=== PATIENT | female | born 1950 | race Caucasian/White ===

== ENCOUNTER → 2017-09-15 | Outpatient (CLI) | payer BC ==
[~2017-09-15] MED LIST: KETO0.5S33 OPL; PRED1SUS3 OPL
--- NOTE | 2017-09-15 19:34 | DIAGNOSTIC IMAGING REPORT ---
TWO VIEW CHEST CLINICAL HISTORY: Fever. FINDINGS: PA and lateral chest radiographs are obtained. No prior studies are available for comparison at the time of dictation. The PA view is degraded by patient rotation. The cardiomediastinal silhouette is unremarkable. Nonspecific interstitial thickening is likely chronic. No airspace consolidation or pleural effusion is seen. There is no pneumothorax. The skeletal structures are osteopenic. Degenerative change is noted throughout the thoracic spine. The bony thorax appears intact. IMPRESSION: No active disease in the chest. Electronically signed by: Justin Boss M.D. 09/15/2017 7:32 PM Dictated Date/Time: 09/15/2017 7:31 PM
--- NOTE | 2017-09-22 14:53 | CODING QUERY NO DIAGNOSIS ---
Valid Physician Order Needed A valid physician order must be submitted in order to properly bill for the service(s) provided, including date of service(s), valid diagnosis, and physician signature. If these tests are done on a recurring basis the original physician order must be submitted in order to code and bill for the service(s) provided. Please fax us the original, signed physician order so that we may expedite billing to [phone] DOS 09/15/17 (Attacahed order is missing physician signature) * Chest xray Thank you Emilie Vigli [employer] Information [employer]
== END | disposition home or self-care (01) ==
LOC: C.RAD 19:06
PROVIDERS: ATTEND Family Medicine
DX: R50.9 Fever, unspecified (principal)

== ENCOUNTER → 2017-09-15 | Outpatient (CLI) | payer BC ==
--- NOTE | 2017-09-15 14:27 | DIAGNOSTIC IMAGING REPORT ---
ABDOMEN COMPLETE (US) HISTORY: Pain ABD PAIN. COMPARISON: None. FINDINGS: Pancreas: The pancreas demonstrates a normal echotexture. Liver: Unremarkable. Gallbladder: No gallbladder wall thickening. No gallstones. CBD: 5 mm Kidneys: No hydronephrosis. Spleen: Slight prominence at 11 cm maximum dimension Aorta: Normal in caliber. IVC: Patent. IMPRESSION: No acute process within the abdomen. Slight splenomegaly. The above report was generated using voice recognition software. It may contain grammatical, syntax or spelling errors. Electronically signed by: Kun Patterson M.D. 09/15/2017 2:26 PM Dictated Date/Time: 09/15/2017 2:25 PM
[2017-09-15 14:42] LABS: BASO % 0.1 %; BASO ABS # 0.03 K/uL (0-0.2); HEMATOCRIT 42.5 % (37-47); HEMOGLOBIN 14.5 g/dL (12.0-16.0); IG# 0.07 K/uL (0.00-0.02); LYMPH % 8.3 %; LYMPH ABS # 1.78 K/uL (1.2-3.4); MEAN CELL VOLUME 95.7 fL (80-100); MEAN CORPUSCULAR HEMOGLOBIN 32.7 pg (25-34); MEAN CORPUSCULAR HGB CONC 34.1 g/dl (32-36); MEAN PLATELET VOLUME 10.9 fL (7.4-10.4); MONO % 7.4 %; MONO ABS # 1.59 K/uL (0.11-0.59); NEUT % 83.9 %; NEUT ABS # 17.98 K/uL (1.4-6.5); PLATELET COUNT 204 K/uL (130-400); RED CELL DISTRIBUTION WIDTH CV 13.1 % (11.5-14.5); RED CELL DISTRIBUTION WIDTH SD 46.1 fL (36.4-46.3); WHITE BLOOD COUNT 21.45 K/uL (4.8-10.8)
[2017-09-15 16:00] LABS: ALBUMIN 4.1 gm/dl (3.4-5.0); ALKALINE PHOSPHATASE 98 U/L (45-117); ALT/SGPT 29 U/L (12-78); AST/SGOT 21 U/L (15-37); BLOOD UREA NITROGEN 17 mg/dl (7-18); CARBON DIOXIDE 24 mmol/L (21-32); CREATININE 1.35 mg/dl (0.60-1.20); GLUCOSE 127 mg/dl (70-99); LIPASE 86 U/L (73-393); POTASSIUM 3.5 mmol/L (3.5-5.1); SODIUM 134 mmol/L (136-145); TOTAL PROTEIN 8.8 gm/dl (6.4-8.2)
--- NOTE | 2017-09-22 14:48 | CODING QUERY NO DIAGNOSIS ---
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 Please assist us with providing a diagnosis/symptom for the test(s) below: A diagnosis/symptom was not documented on your Order. A valid diagnosis/symptom is required to bill all insurances. Please remember that we are unable to code a diagnosis of rule out, probable, possible, questionable, or suspected. Tests that require a diagnosis: DOS: 09/15/17 * [facility] DIAGNOSIS: Provider Signature: Date: Thank you Emilie Vigil [employer] Once completed, please kindly fax back to [phone] For questions please call [phone]
== END | disposition home or self-care (01) ==
LOC: C.ULTR 13:45
PROVIDERS: ATTEND Family Medicine
DX: R10.84 Generalized abdominal pain (principal); R10.11 Right upper quadrant pain; R50.9 Fever, unspecified

== ENCOUNTER → 2017-09-20 | Outpatient (CLI) | payer MEDICARE ==
[2017-09-20 12:14] LABS: BASO % 0.5 %; BASO ABS # 0.05 K/uL (0-0.2); EOS % 1.3 %; EOS ABS # 0.13 K/uL (0-0.5); HEMATOCRIT 40.1 % (37-47); HEMOGLOBIN 13.6 g/dL (12.0-16.0); IG# 0.11 K/uL (0.00-0.02); LYMPH % 28.3 %; LYMPH ABS # 2.84 K/uL (1.2-3.4); MEAN CELL VOLUME 94.1 fL (80-100); MEAN CORPUSCULAR HEMOGLOBIN 31.9 pg (25-34); MEAN CORPUSCULAR HGB CONC 33.9 g/dl (32-36); MEAN PLATELET VOLUME 10.6 fL (7.4-10.4); MONO % 9.9 %; MONO ABS # 0.99 K/uL (0.11-0.59); NEUT % 58.9 %; NEUT ABS # 5.92 K/uL (1.4-6.5); PLATELET COUNT 268 K/uL (130-400); RED CELL DISTRIBUTION WIDTH CV 12.6 % (11.5-14.5); RED CELL DISTRIBUTION WIDTH SD 43.2 fL (36.4-46.3); WHITE BLOOD COUNT 10.04 K/uL (4.8-10.8)
[2017-09-20 12:53] LABS: ALBUMIN 3.5 gm/dl (3.4-5.0); ALKALINE PHOSPHATASE 96 U/L (45-117); ALT/SGPT 39 U/L (12-78); AST/SGOT 25 U/L (15-37); BLOOD UREA NITROGEN 16 mg/dl (7-18); CALCIUM 9.3 mg/dl (8.5-10.1); CARBON DIOXIDE 26 mmol/L (21-32); CREATININE 0.98 mg/dl (0.60-1.20); GLUCOSE 86 mg/dl (70-99); LIPASE 229 U/L (73-393); POTASSIUM 3.9 mmol/L (3.5-5.1); SODIUM 135 mmol/L (136-145); TOTAL PROTEIN 8.2 gm/dl (6.4-8.2)
== END | disposition home or self-care (01) ==
LOC: C.LAB 09:58
PROVIDERS: ATTEND Family Medicine
DX: R10.11 Right upper quadrant pain (principal)

== ENCOUNTER 2020-02-03 18:37 | Inpatient (IN) ==
[2020-02-03] MEDS ORDERED: SODIUM CHLORIDE 0.9% 1000ML 1,000 ML IV ONE (18:54)
[2020-02-03] MEDS ORDERED: ONDANSETRON INJ 2 MG/ML 2 ML VIAL IV STA (18:54)
--- NOTE | 2020-02-03 19:00 | Emergency Department Note ---
History of Present Illness General Chief complaint: Abdominal Pain Stated complaint: UNABLE TO KEEP ANYTHING DOWN FOR WEEKS-ABD PAIN Time Seen by Provider: 02/03/20 18:44 Source: patient Mode of arrival: ambulatory Limitations: no limitations History of Present Illness Maximum Pain Intensity: 5 This patient comes in after complaining of nausea that has been going on for several weeks. She says she cannot eat because she gets nauseated immediately. No fever chills or cough. No respiratory symptoms. No chest pain or shortness of breath. Her abdomen hurts intermittently but at present she has none. No loss of taste or smell. No diarrhea or constipation. No fall or trauma. 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 She has not been Covid tested. No headache, neck pain, or stiffness or flulike symptoms. Home Medications Medication Instructions Recorded Confirmed Type pantoprazole 40 mg PO DAILY 02/03/20 02/03/20 History sucralfate 1 g PO ACHS 02/03/20 02/03/20 History Allergies Allergy/AdvReac Type Severity Reaction Status Date / Time No Known Allergies Allergy Verified 02/03/20 19:51 Past Med/Surg History Social History Smoking Status: Never smoker Preferred Language: Malawian Feels Safe at Home: Yes Immunizations: Past medical history denies cardiac disease, pulmonary disease, diabetes Family historypancreatic cancer runs in the family Review of Systems A total of 10 systems reviewed and were otherwise negative Physical Exam Vital Signs Vital Signs - 24 hr 02/03/20 18:38 02/03/20 19:38 02/03/20 19:43 Temperature 36.9 C Temperature Source Temporal Artery Scan Pulse Rate 101 H 83 Pulse Rate from SpO2 Sensor 83 Respiratory Rate 18 26 H Blood Pressure 130/74 Blood Pressure Mean 92 Pulse Oximetry 90 88 L 87 L Oxygen Delivery Method Room Air Room Air Room Air Oxygen Flow Rate Sepsis Recent Fever Within 48 Hours No Sepsis New/Unexplained Change in Mental Status N/A Sepsis Action Taken by Nursing No Action Required 02/03/20 19:50 02/03/20 20:00 02/03/20 20:10 Temperature Temperature Source Pulse Rate 81 78 88 Pulse Rate from SpO2 Sensor 82 79 87 Respiratory Rate 17 20 18 Blood Pressure 154/86 H Blood Pressure Mean 102 Pulse Oximetry 93 96 97 Oxygen Delivery Method Nasal Cannula Oxygen Flow Rate 3 Sepsis Recent Fever Within 48 Hours Sepsis New/Unexplained Change in Mental Status Sepsis Action Taken by Nursing 02/03/20 20:20 02/03/20 20:30 02/03/20 20:40 Temperature Temperature Source Pulse Rate 82 78 83 Pulse Rate from SpO2 Sensor 82 83 Respiratory Rate 14 21 21 Blood Pressure Blood Pressure Mean Pulse Oximetry 97 94 Oxygen Delivery Method Oxygen Flow Rate Sepsis Recent Fever Within 48 Hours Sepsis New/Unexplained Change in Mental Status Sepsis Action Taken by Nursing 02/03/20 20:50 02/03/20 21:00 02/03/20 21:10 Temperature Temperature Source Pulse Rate 79 81 74 Pulse Rate from SpO2 Sensor 79 81 75 Respiratory Rate 24 20 21 Blood Pressure 137/89 Blood Pressure Mean 108 Pulse Oximetry 91 93 94 Oxygen Delivery Method Oxygen Flow Rate Sepsis Recent Fever Within 48 Hours Sepsis New/Unexplained Change in Mental Status Sepsis Action Taken by Nursing 02/03/20 21:20 02/03/20 21:30 02/03/20 21:40 Temperature Temperature Source Pulse Rate 79 71 74 Pulse Rate from SpO2 Sensor 79 72 75 Respiratory Rate 20 23 21 Blood Pressure Blood Pressure Mean Pulse Oximetry 93 94 93 Oxygen Delivery Method Oxygen Flow Rate Sepsis Recent Fever Within 48 Hours Sepsis New/Unexplained Change in Mental Status Sepsis Action Taken by Nursing 02/03/20 21:50 02/03/20 22:00 02/03/20 22:10 Temperature Temperature Source Pulse Rate 76 91 H 73 Pulse Rate from SpO2 Sensor 76 89 73 Respiratory Rate 22 20 24 Blood Pressure 132/81 Blood Pressure Mean 90 Pulse Oximetry 90 94 94 Oxygen Delivery Method Nasal Cannula Oxygen Flow Rate 2 Sepsis Recent Fever Within 48 Hours Sepsis New/Unexplained Change in Mental Status Sepsis Action Taken by Nursing 02/03/20 22:20 02/03/20 22:30 Temperature Temperature Source Pulse Rate 71 76 Pulse Rate from SpO2 Sensor 72 76 Respiratory Rate 24 22 Blood Pressure Blood Pressure Mean Pulse Oximetry 92 91 Oxygen Delivery Method Nasal Cannula Oxygen Flow Rate 3 Sepsis Recent Fever Within 48 Hours Sepsis New/Unexplained Change in Mental Status Sepsis Action Taken by Nursing General: Well developed well nourished in no acute distress, breathing comfortably on room air. Normal speech HEENT: Normal cephalic atraumatic. Pupils are equal round and reactive to light. Extraocular movements are intact. Oropharynx is pink with moist mucous membranes. No swelling of the mouth lips or tongue. Neck: Supple with a midline trachea. No meningeal signs or stiffness, no JVD or bruits. No Stridor. Chest: Clear to auscultation bilaterally. No wheezes or rhonchi. No increased work of breathing. Heart: Regular rate and rhythm without murmurs or gallops. Abdomen: Soft nontender, nondistended without rebound guarding or rigidity. Extremities: No cyanosis clubbing or edema. No calf tenderness or assymetry Spine/Back. Non tender to palpation. No CVA tenderness Skin: Good turgor without rashes. Neurologic exam: Cranial nerves two through 12 are intact. Motor and sensation are intact and symmetrical throughout. Course Administered Medications Discontinued Medications Dexamethasone (Dexamethasone Sod Inj 4 Mg/Ml Vial) 6 mg IV NOW STA Stop: 02/03/20 20:10 Last Admin: 02/03/20 20:29 Dose: 6 mg Documented by: [id number] Sodium Chloride (Nss 1000ml) 1,000 mls @ 999 mls/hr IV .Q1H1M ONE Stop: 02/03/20 19:54 Last Infusion: 02/03/20 20:52 Dose: 0 mls/hr Documented by: [id number] Admin: 02/03/20 19:37 Dose: 999 mls/hr Documented by: [id number] Ondansetron HCl (Ondansetron Inj 2 Mg/Ml 2 Ml Vial) 4 mg IV NOW STA Stop: 02/03/20 18:55 Last Admin: 02/03/20 19:37 Dose: 4 mg Documented by: [id number] Medical Decision Making Differential Diagnosis Dehydration, cardiac disease, electrolyte or metabolic abnormality, pancreatic disease, Covid, intra-abdominal process, electrolyte or metabolic abnormality Medical Records Attestation: I reviewed the patient's medical records. Home Medications Current Medication List: was personally reviewed by me Laboratory Data Attestation: I reviewed the patient's lab results. Result diagrams: 02/03/20 19:34 02/03/20 19:37 Lab Results 02/03/20 02/03/20 02/03/20 Range/Units 19:34 19:34 19:34 WBC 7.40 (4.8-10.8) K/uL RBC 4.07 L (4.2-5.4) M/uL Hgb 12.7 (12.0-16.0) g/dL Hct 38.0 (37-47) % MCV 93.4 (80-100) fL MCH 31.2 (25-34) pg MCHC 33.4 (32-36) g/dL RDW Std Deviation 47.6 H (36.4-46.3) fL RDW Coeff of Annetta 13.9 (11.5-14.5) % Plt Count 191 (130-400) K/uL MPV 10.5 H (7.4-10.4) fL Immature Gran % (Auto) 0.1 % Neut % (Auto) 72.2 % Lymph % (Auto) 17.7 % Davis % (Auto) 9.9 % Eos % (Auto) 0.0 % Baso % (Auto) 0.1 % Neut # (Auto) 5.34 (1.4-6.5) K/uL Lymph # (Auto) 1.31 (1.2-3.4) K/uL [place] # (Auto) 0.73 H (0.11-0.59) K/uL Eos # (Auto) 0.00 (0-0.5) K/uL Baso # (Auto) 0.01 (0-0.2) K/uL Immature Gran # (Auto) 0.01 (0.00-0.02) K/uL Sodium (136-145) mmol/L Potassium (3.5-5.1) mmol/L Chloride (98-107) mmol/L Carbon Dioxide (21-32) mmol/L Anion Gap (3-11) BUN (7-18) mg/dl Creatinine (0.6-1.2) mg/dl Est Cr Clr Drug Dosing ml/min Est GFR ( Amer) Est GFR (Non-Af Amer) BUN/Creatinine Ratio (10-20) Glucose (70-99) mg/dl Calcium (8.5-10.1) mg/dl Total Bilirubin (0.2-1) mg/dl AST (15-37) U/L ALT (12-78) U/L Alkaline Phosphatase (45-117) U/L Troponin I (0-0.045) ng/ml Total Protein (6.4-8.2) gm/dl Albumin (3.4-5.0) gm/dl Globulin (2.5-4.0) gm/dl Albumin/Globulin Ratio (0.9-2) Lipase (73-393) U/L Urine Color Urine Appearance (Clear) Urine pH (4.5-7.5) Ur Specific [place] (1.000-1.030) Urine Protein (Negative) Urine Glucose (UA) (Negative) Urine Ketones (Negative) Urine Blood (Negative) Urine Nitrite (Negative) Urine Bilirubin (Negative) Urine Urobilinogen (Negative) Ur Leukocyte Esterase (Negative) Urine WBC (Auto) (0-5) /hpf Urine RBC (Auto) (0-4) /hpf U Hyaline Cast (Auto) (0-5) /lpf U Epithel Cells (Auto) (0-5) /lpf Urine Bacteria (Auto) (Negative) COVID-19 Eval Order Covid19 [facility] SARS-CoV-2, RNA, NAAT POSITIVE A* (NEGATIVE) 02/03/20 02/03/20 Range/Units 19:37 19:37 WBC (4.8-10.8) K/uL RBC (4.2-5.4) M/uL Hgb (12.0-16.0) g/dL Hct (37-47) % MCV (80-100) fL MCH (25-34) pg MCHC (32-36) g/dL RDW Std Deviation (36.4-46.3) fL RDW Coeff of Annetta (11.5-14.5) % Plt Count (130-400) K/uL MPV (7.4-10.4) fL Immature Gran % (Auto) % Neut % (Auto) % Lymph % (Auto) % [place] % (Auto) % Eos % (Auto) % Baso % (Auto) % Neut # (Auto) (1.4-6.5) K/uL Lymph # (Auto) (1.2-3.4) K/uL [place] # (Auto) (0.11-0.59) K/uL Eos # (Auto) (0-0.5) K/uL Baso # (Auto) (0-0.2) K/uL Immature Gran # (Auto) (0.00-0.02) K/uL Sodium 140 (136-145) mmol/L Potassium 3.2 L (3.5-5.1) mmol/L Chloride 104 (98-107) mmol/L Carbon Dioxide 26 (21-32) mmol/L Anion Gap 10.0 (3-11) BUN 19 H (7-18) mg/dl Creatinine 0.93 (0.6-1.2) mg/dl Est Cr Clr Drug Dosing 51.9 ml/min Est GFR ( Amer) 71.7 Est GFR (Non-Af Amer) 61.8 BUN/Creatinine Ratio 21.0 H (10-20) Glucose 111 H (70-99) mg/dl Calcium 8.6 (8.5-10.1) mg/dl Total Bilirubin 1.1 H (0.2-1) mg/dl AST 76 H (15-37) U/L ALT 71 (12-78) U/L Alkaline Phosphatase 84 (45-117) U/L Troponin I < 0.015 (0-0.045) ng/ml Total Protein 7.5 (6.4-8.2) gm/dl Albumin 3.3 L (3.4-5.0) gm/dl Globulin 4.2 H (2.5-4.0) gm/dl Albumin/Globulin Ratio 0.8 L (0.9-2) Lipase 251 (73-393) U/L Urine Color Dark Yellow Urine Appearance Clear (Clear) Urine pH 5.5 (4.5-7.5) Ur Specific [place] 1.025 (1.000-1.030) Urine Protein 2+ H (Negative) Urine Glucose (UA) Negative (Negative) Urine Ketones 2+ H (Negative) Urine Blood Negative (Negative) Urine Nitrite Negative (Negative) Urine Bilirubin Negative (Negative) Urine Urobilinogen Positive H (Negative) Ur Leukocyte Esterase Trace H (Negative) Urine WBC (Auto) 1-5 (0-5) /hpf Urine RBC (Auto) 0-4 (0-4) /hpf U Hyaline Cast (Auto) 5-10 H (0-5) /lpf U Epithel Cells (Auto) >30 H (0-5) /lpf Urine Bacteria (Auto) Negative (Negative) COVID-19 Eval Order SARS-CoV-2, RNA, NAAT (NEGATIVE) Imaging Data Attestation: I personally reviewed and interpreted this imaging study as follows: My Impression: Chest x-raythere are by lateral fluffy infiltrates consistent with Covid primarily in the bases. No pneumothorax ECG Data Attestation: I personally reviewed and interpreted this ECG as follows: Indication: + abdominal pain Rate (beats per minute): 76 Rhythm: + normal sinus ECG Intervals/blocks: + Normal QRS, + Normal QT and + Normal DE ECG Pender: + Normal ECG ST segments: + Normal ST segments ECG Findings: no PACs and no PVCs Comparison ECG Date: no prior available MDM Narrative This patient comes in complaining of nausea. She does have a Covid exposure. She is otherwise asymptomatic. It was noted in triage her oxygen was a little low at 90 although she has no respiratory symptoms. IV access was established and she was hydrated with 1 L IV normal saline bolus. EKG was obtained she was placed on respiratory isolation multiple blood testing was obtained as well as cardiac enzymes urinalysis and culture. I did Covid testing and chest x-ray as well. She was reassessed frequently. She was found to be hypoxemic in triage initially with a low 80s O2 sat that came up to 90. She has no shortness of breath however during the work-up here her O2 sat would go into 87% range. She was placed on nasal cannula and is in the 90s she has no respiratory symptoms. Her Covid test was positive. Chest x-ray shows infiltrates consistent with Covid. She has no significant electrolyte or metabolic abnormalities. Her EKG does not suggest acute coronary syndrome or arrhythmia. She does need to be admitted for her Covid. Given her hypoxemia she was given Decadron 6 mg IV. I did consult doctor [facility] to see the patient the ER for these measures. 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 Impression & Plan COVID-19, Nausea, Hypoxemia, Acute dehydration Discharge Plan Visit Data Chief Complaint: Abdominal Pain Stated Complaint: UNABLE TO KEEP ANYTHING DOWN FOR WEEKS-ABD PAIN ED Provider: Martinez Cervantes Discharge Problem: COVID-19, Nausea, Hypoxemia, Acute dehydration Forms Stand Alone Forms: My [facility] [employer] Prescriptions Prescriptions: No Action sucralfate 1 gram tablet 1 g PO ACHS RF: 0 pantoprazole 40 mg tablet,delayed release (DR/EC) 40 mg PO DAILY RF: 0
[2020-02-03 19:48] LABS: Basophils # (auto) 0.01 K/uL (0-0.2); Basophils % (auto) 0.1 %; Hemoglobin 12.7 g/dL (12.0-16.0); Immature Granulocytes # (auto) 0.01 K/uL (0.00-0.02); Immature Granulocytes % (auto) 0.1 %; Lymphocytes # (auto) 1.31 K/uL (1.2-3.4); Lymphocytes % (auto) 17.7 %; Mean Corpuscular Hemoglobin 31.2 pg (25-34); Mean Corpuscular Hgb Conc 33.4 g/dL (32-36); Mean Corpuscular Volume 93.4 fL (80-100); Mean Platelet Volume 10.5 fL (7.4-10.4); Monocytes # (auto) 0.73 K/uL (0.11-0.59); Monocytes % (auto) 9.9 %; Neutrophils # (auto) 5.34 K/uL (1.4-6.5); Neutrophils % (auto) 72.2 %; Platelet Count 191 K/uL (130-400); RDW Coefficient of Variation 13.9 % (11.5-14.5); RDW Standard Deviation 47.6 fL (36.4-46.3); Red Blood Count 4.07 M/uL (4.2-5.4)
[2020-02-03 19:58] LABS: Appearance Urine Clear (Clear); Bacteria Urine Automated Negative (Negative); Blood Urine Negative (Negative); Color Urine Dark Yellow; Epithelial Cell Urine Auto >30 /lpf (0-5); Glucose Urine UA Negative (Negative); Ketones Urine 2+ (Negative); Leukocyte Esterase Urine Trace (Negative); Nitrite Urine Negative (Negative); Protein Urine 2+ (Negative); RBC Urine Automated 0-4 /hpf (0-4); Specific Gravity Urine 1.025 (1.000-1.030); Urobilinogen Urine Positive (Negative); pH Urine 5.5 (4.5-7.5)
[2020-02-03 20:02] LABS: Bilirubin Urine Negative (Negative); Ictotest Urine Negative (Negative)
[2020-02-03] MEDS ORDERED: DEXAMETHASONE SOD INJ 4 MG/ML VIAL IV STA (20:09)
[2020-02-03 20:10] LABS: Alanine Aminotransferase 71 U/L (12-78); Albumin Level 3.3 gm/dl (3.4-5.0); Aspartate Aminotransferase 76 U/L (15-37); Blood Urea Nitrogen 19 mg/dl (7-18); Calcium 8.6 mg/dl (8.5-10.1); Carbon Dioxide 26 mmol/L (21-32); Chloride 104 mmol/L (98-107); Creatinine Clr Calc Pharmacy 51.9 ml/min; Est GFR (African American) 71.7; Est GFR (Non-African American) 61.8; Glucose 111 mg/dl (70-99); Lipase 251 U/L (73-393); Potassium 3.2 mmol/L (3.5-5.1); Sodium 140 mmol/L (136-145)
[2020-02-03 20:15] LABS: Albumin Globulin Ratio 0.8 (0.9-2); Alkaline Phosphatase 84 U/L (45-117); Bilirubin,Total 1.1 mg/dl (0.2-1); Globulin 4.2 gm/dl (2.5-4.0); Total Protein 7.5 gm/dl (6.4-8.2); Troponin I < 0.015 ng/ml (0-0.045)
--- NOTE | 2020-02-03 20:56 | History & Physical Report ---
Date of Service February 03, 2020 Assessment & Plan (1) Pneumonia due to COVID-19 virus: Bilateral pneumonia due to COVID-19 virus with hypoxia- Dexamethasone 6 mg IV daily Zinc sulfate 220 mg p.o. daily Ventolin HFA 2 puffs 4 times daily, and every 2 hours as needed Nasal cannula oxygen, titrate to keep pulse ox 94 to 95% Present on Admission?: Yes (2) Hypoxemia: See above Present on Admission?: Yes (3) Nausea: Patient has had nausea for several weeks, well before her exposure and contraction of COVID-19. She reports that she is definitely been worse since the viral infection. Order CT abdomen pelvis without contrast. Continue pantoprazole 40 mg p.o. daily and sucralfate 1 g p.o. before meals and at bedtime. Famotidine 20 mg IV every 12 hours. Promethazine 25 mg IV every 4-6 hours as needed Zofran 4 mg IV every 6 hours as needed Benadryl 25 mg IV every 6 hours as needed Consult gastroenterology, as patient will likely need to have an EGD at some point. Present on Admission?: Yes (4) Acute dehydration: NSS + KCl 20 mEq at 100 mils per hour Present on Admission?: Yes History of Present Illness Chief Complaint: The patient presents to the emergency department with complaint of worsening nausea and inability to hold anything down due to abdominal pain. 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 In the emergency department, had a COVID- 19 test which was positive. Other significant abnormalities include the following: Potassium 3.2, glucose 111, total bilirubin 1.1, AST 76, albumin 3.3 Chest x-ray showed bilateral lower lobe infiltrates. Pulse ox on room air was as low as 87%, and improved to 94% on 2 L nasal cannula oxygen. 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 Beliefs That Will Affect Care: None Current Living Situation: Spouse Other Information That Helps Us Care for You: No Feels Safe at Home: Yes Safety Concerns: Feels Safe At This Time Assistive Devices: Glasses and Oxygen - Continuous Review of Systems Review of Systems: The patient denies chest pain, palpitations, cough, lower extremity swelling, sore throat, fevers, chills, sweats, vomiting, diarrhea , constipation, blood in urine or stool, dysuria, urinary frequency or urgency, lightheadedness, dizziness, headache, memory loss, loss of consciousness, rash, abnormal bruising or bleeding, imbalance, focal weakness, numbness or tingling in arms or legs, generalized ar thralgias or myalgias, back or neck pain, or night sweats. The review of systems is otherwise negative other than for that already noted above, and at least 10 systems have been reviewed. Physical Exam Physical Exam: The patient is awake, alert and oriented 3, well developed and well nourished, normocephalic and atraumatic, lying in bed and in no acute distress. HEENT--PERRL, EOMI, mucous membranes and oropharynx dry. Neck--supple. No JVD. No bruits. Thyroid normal, trachea midline, no adenopathy. Heart--normal S1 and S2. No murmurs, rubs or gallops. Lungs--coarse breath sounds bilaterally. No respiratory distress, no accessory muscle use. Abdomen--normal bowel sounds and soft. Epigastric area tenderness. Nondistended. Extremities--no cyanosis or clubbing. No edema. Dermatologic--normal skin turgor, normal color, no abnormal lymph nodes, no rash. Neurologic--cranial nerves II through XII grossly intact. Rheumatologic--normal range of motion. Psychiatric--normal affect. Results & Data Results & Data ([facility]) Vital Signs (Past 12 Hours) Vital Signs Temp Pulse Resp BP Pulse Ox 02/03/20 20:50 79 24 91 02/03/20 20:40 83 21 94 02/03/20 20:30 78 21 02/03/20 20:20 82 14 97 02/03/20 20:10 88 18 97 02/03/20 20:00 78 20 154/86 H 96 02/03/20 19:50 81 17 93 02/03/20 19:43 83 26 H 87 L 02/03/20 19:38 88 L 02/03/20 18:38 98.4 F 101 H 18 130/74 90 Laboratory Results Laboratory Results WBC 7.40 K/uL (4.8-10.8) 02/03/20 19:34 RBC 4.07 M/uL (4.2-5.4) L 02/03/20 19:34 Hgb 12.7 g/dL (12.0-16.0) 02/03/20 19:34 Hct 38.0 % (37-47) 02/03/20 19:34 MCV 93.4 fL (80-100) 02/03/20 19:34 MCH 31.2 pg (25-34) 02/03/20 19:34 MCHC 33.4 g/dL (32-36) 02/03/20 19:34 RDW Std Deviation 47.6 fL (36.4-46.3) H 02/03/20 19:34 RDW Coeff of Annetta 13.9 % (11.5-14.5) 02/03/20 19:34 Plt Count 191 K/uL (130-400) 02/03/20 19:34 MPV 10.5 fL (7.4-10.4) H 02/03/20 19:34 Immature Gran % (Auto) 0.1 % 02/03/20 19:34 Neut % (Auto) 72.2 % 02/03/20 19:34 Lymph % (Auto) 17.7 % 02/03/20 19:34 [place] % (Auto) 9.9 % 02/03/20 19:34 Eos % (Auto) 0.0 % 02/03/20 19:34 Baso % (Auto) 0.1 % 02/03/20 19:34 Neut # (Auto) 5.34 K/uL (1.4-6.5) 02/03/20 19:34 Lymph # (Auto) 1.31 K/uL (1.2-3.4) 02/03/20 19:34 [place] # (Auto) 0.73 K/uL (0.11-0.59) H 02/03/20 19:34 Eos # (Auto) 0.00 K/uL (0-0.5) 02/03/20 19:34 Baso # (Auto) 0.01 K/uL (0-0.2) 02/03/20 19:34 Immature Gran # (Auto) 0.01 K/uL (0.00-0.02) 02/03/20 19:34 Sodium 140 mmol/L (136-145) 02/03/20 19:37 Potassium 3.2 mmol/L (3.5-5.1) L 02/03/20 19:37 Chloride 104 mmol/L (98-107) 02/03/20 19:37 Carbon Dioxide 26 mmol/L (21-32) 02/03/20 19:37 Anion Gap 10.0 (3-11) 02/03/20 19:37 BUN 19 mg/dl (7-18) H 02/03/20 19:37 Creatinine 0.93 mg/dl (0.6-1.2) 02/03/20 19:37 Est Cr Clr Drug Dosing 51.9 ml/min 02/03/20 19:37 Est GFR ( Amer) 71.7 02/03/20 19:37 Est GFR (Non-Af Amer) 61.8 02/03/20 19:37 BUN/Creatinine Ratio 21.0 (10-20) H 02/03/20 19:37 Glucose 111 mg/dl (70-99) H 02/03/20 19:37 Calcium 8.6 mg/dl (8.5-10.1) 02/03/20 19:37 Total Bilirubin 1.1 mg/dl (0.2-1) H 02/03/20 19:37 AST 76 U/L (15-37) H 02/03/20 19:37 ALT 71 U/L (12-78) 02/03/20 19:37 Alkaline Phosphatase 84 U/L (45-117) 02/03/20 19:37 Troponin I < 0.015 ng/ml (0-0.045) 02/03/20 19:37 Total Protein 7.5 gm/dl (6.4-8.2) 02/03/20 19:37 Albumin 3.3 gm/dl (3.4-5.0) L 02/03/20 19:37 Globulin 4.2 gm/dl (2.5-4.0) H 02/03/20 19:37 Albumin/Globulin Ratio 0.8 (0.9-2) L 02/03/20 19:37 Lipase 251 U/L (73-393) 02/03/20 19:37 Urine Color Dark Yellow 02/03/20 19:37 Urine Appearance Clear (Clear) 02/03/20 19:37 Urine pH 5.5 (4.5-7.5) 02/03/20 19:37 Ur Specific [place] 1.025 (1.000-1.030) 02/03/20 19:37 Urine Protein 2+ (Negative) H 02/03/20 19:37 Urine Glucose (UA) Negative (Negative) 02/03/20 19:37 Urine Ketones 2+ (Negative) H 02/03/20 19:37 Urine Blood Negative (Negative) 02/03/20 19:37 Urine Nitrite Negative (Negative) 02/03/20 19:37 Urine Bilirubin Negative (Negative) 02/03/20 19:37 Urine Urobilinogen Positive (Negative) H 02/03/20 19:37 Ur Leukocyte Esterase Trace (Negative) H 02/03/20 19:37 Urine WBC (Auto) 1-5 /hpf (0-5) 02/03/20 19:37 Urine RBC (Auto) 0-4 /hpf (0-4) 02/03/20 19:37 U Hyaline Cast (Auto) 5-10 /lpf (0-5) H 02/03/20 19:37 U Epithel Cells (Auto) >30 /lpf (0-5) H 02/03/20 19:37 Urine Bacteria (Auto) Negative (Negative) 02/03/20 19:37 COVID-19 Eval Order Covid19 IDNow [facility] 02/03/20 19:34 SARS-CoV-2, RNA, NAAT POSITIVE (NEGATIVE) A* 02/03/20 19:34 Code Status & VTE Plan Code Status Full code VTE Prophylaxis Plan VTE Prophylaxis will be ordered: Yes PG Care Time/CCT Total # of Minutes Spent Total Time Spent with Patient: Total time spent is greater than 50% in coordination of care (as documented) at patient's floor/unit and/or counseling patient: Coding Level of Care Code 60955 Initial Inpt Care Lvl 2 Diagnoses Pneumonia due to COVID-19 virus U07.1; J12.89 Hypoxemia R09.02 Nausea R11.0 Acute dehydration E86.0
[2020-02-04] MEDS ORDERED: ONDANSETRON INJ 2 MG/ML 2 ML VIAL IV PRN (00:50)
[2020-02-04] MEDS ORDERED: diphenhydrAMINE 50 MG/ML VIAL IV PRN (00:50)
[2020-02-04] MEDS ORDERED: INFLUENZA ADMINISTRATION CHARGE ONE (01:31)
[2020-02-04] MEDS ORDERED: INFLUENZA VACCINE HIGH DOSE PF 65+ 0.7 ML SYR IM ONE (01:31)
[2020-02-04] MEDS: SUCRALFATE 1 GM TAB PO SCH ×5 (01:36→20:37)
[2020-02-04] MEDS: PROMETHAZINE HCL 25 MG in SODIUM CHLORIDE 0.9% 50 ML IV PRN (01:37)
[2020-02-04] MEDS: NSS + 20MEQ KCL 20 MEQ/1,000 ML BAG IV SCH ×3 (01:37→20:37)
[2020-02-04] MEDS: ALBUTEROL HFA 8 GM INHALER INH SCH ×2 (07:09→11:18)
[2020-02-04] MEDS: PANTOprazole 40 MG TAB PO SCH (07:28)
[2020-02-04] MEDS: dexAMETHasone 6 MG in SYRINGE 0 ML IV SCH (07:29)
--- NOTE | 2020-02-04 08:04 | XRay Report ---
XR chest 1V portable CLINICAL HISTORY: Pain radiating to the abdomen. COMPARISON STUDY: 11/03/2019 FINDINGS: The cardiac and mediastinal contours remain stable. There are bibasilar parenchymal opaciti es suspicious for a multifocal pneumonia. Correlation with Covid 19 testing is recommended.[There is no free intraperitoneal air. There are no lytic or pleural effusions. IMPRESSION: Bibasilar airspace opacities suspicious for a multifocal pneumonia possibly viral. Correl ation with Covid 19 testing recommended. ACT 112: Negative or not required by law. Electronically signed by: Krishna Hernandez M.D. 02/04/2020 8:03 AM
--- NOTE | 2020-02-04 09:36 | CT Scan Report ---
ABDOMEN AND PELVIS CT WITHOUT CONTRAST CT DOSE: 567.75 mGycm HISTORY: intractable nausea and vomiting, COVID-19+ TECHNIQUE: Multiaxial CT images of the abdomen and pelvis were performed without contrast. A dose lo wering technique was utilized adhering to the principles of ALARA. COMPARISON STUDY: None. FINDINGS: Moderate bibasilar patchy airspace opacities consistent with a viral pneumonia. No pneumope ritoneum. No pneumatosis. No suspicious lytic or blastic osseous lesions. Hepatic steatosis. The unen hanced gallbladder, spleen, and pancreas unremarkable. No renal or ureteral stones. No hydronephrosis . Mild bilateral perinephric edema. This is likely chronic. Mild nodular thickening of the adrenal gl ands which is likely age-related. Moderate calcified plaque within the normal caliber abdominal aorta . No retroperitoneal or pelvic lymphadenopathy. No pelvic free fluid. The bladder, uterus, bilateral adnexa are within normal limits. Suboptimal evaluation for bowel pathology due to the lack of intrave nous and oral contrast. However, there is no definite bowel wall thickening or obstruction. Colonic d iverticulosis. No evidence for acute diverticulitis. Moderate well-formed stool within the transverse colon. Normal appendix. IMPRESSION: 1. No bowel wall thickening or obstruction. 2. Moderate bibasilar patchy airspace opacities consistent with a viral pneumonia. 3. Hepatic steatosis. 4. Colonic diverticulosis. No evidence for acute diverticulitis. ACT 112: Negative or not required by law. Electronically signed by: Flaquito York M.D. 02/04/2020 9:35 AM
[2020-02-04] MEDS: ZINC SULFATE 220 MG CAPSULE PO SCH (09:48)
[2020-02-04] MEDS: FAMOTIDINE 20 MG in SYRINGE 3 ML IV SCH (09:49)
[2020-02-04] MEDS: ENOXAPARIN INJ 40 MG/0.4 ML SYR SQ SCH (09:49)
--- NOTE | 2020-02-04 09:55 | Communication Note ---
Date of Service: February 04, 2020 Patient is a 69 yo female with COVID19 pneumonia. GI has been consulted for nausea. Assessment and plan has been generated by way of chart review. Reportedly patient has been struggling with nausea in the weeks prior to her diagnosis with COVID19. A CT scan does not indicate any alarming findings of the GI system. Labs are unremarkable for GI issues. Plan: -Scheduled antiemetics rather than prn dosing -Pantoprazole 40 mg BID -Famotidine 20 mg BID -Treat acute COVID19 infection -No current role for endoscopy due to COVID19 PNA and low yield for the complaint of nausea -Further work-up for nausea can be considered as an outpatient when COVID19 infection improved (if nausea persists) Thank you for allowing us to participate in the care of this patient. If you should have any further questions do not hesitate to contact us at [phone] or [phone]. Attending addendum: agree with MARC Esteban. continue PPI and anti-emetics, consider outpatient EGD after covid infection has improved. Alexandro Moeller MD Gastroenterology
[2020-02-04 10:27] LABS: Prothrombin Time 10.7 Seconds (9.0-12.0)
[2020-02-04 10:32] LABS: Albumin Level 3.7 gm/dl (3.4-5.0); BUN Creatinine Ratio 16.8 (10-20); Bilirubin Direct 0.4 mg/dl (0-0.2); Creatinine Clr Calc Pharmacy 43.6 ml/min; Est GFR (African American) 57.9; Est GFR (Non-African American) 49.9; Magnesium 2.4 mg/dl (1.8-2.4); Potassium 3.6 mmol/L (3.5-5.1)
[2020-02-04 10:35] LABS: Total Protein 8.7 gm/dl (6.4-8.2)
[2020-02-04 10:37] LABS: D Dimer 1440 ug/L FEU (0-500)
[2020-02-04 12:45] LABS: Hepatitis B Surf Ag Rflx Conf Neg (Neg)
[2020-02-04 13:13] LABS: Hepatitis C IgG 13Yrs+Old_Rflx Neg (Neg)
[2020-02-04] MEDS ORDERED: ALBUTEROL HFA 8 GM INHALER INH PRN (13:41)
--- NOTE | 2020-02-04 18:26 | Electrocardiogram Report ---
Test Reason : Blood Pressure : / mmHG Vent. Rate : 076 BPM Atrial Rate : 076 BPM P-R Int : 170 ms QRS Dur : 086 ms QT Int : 380 ms P-R-T Axes : 042 -18 044 degrees QTc Int : 427 ms Normal sinus rhythm Poor R wave progression, consider anterior WA vs. lead placement vs. LVH No previous ECGs available Confirmed by David Monge ([id number]) on 02/04/2020 6:26:40 PM Referred By: REFERRED SELF Confirmed By:Laz Monge
--- NOTE | 2020-02-05 01:13 | Hospitalist Progress Note ---
Date of Service February 04, 2020 Assessment & Plan (1) Pneumonia due to COVID-19 virus: Largely asymptomatic at this time despite hypoxia. We discussed self-proning, pulm toilet/incentive/flutter, and steroids. Dexamethasone 6 mg IV daily - day #2/10. We discussed remdesivir and plasma - both likely of little benefit given she is 10-14 days into illness course, especially remdesivir. Cont NC O2 - keep sats 90-94%. Repeat cxr in am. Zinc sulfate 220 mg p.o. daily x 10 days. Ventolin prn Repeat procal and dimer in am. (2) Acute respiratory failure with hypoxia: 2nd COVID-19 pneumonia. see above (3) Abnormal LFTs: likely 2nd to COVID-19 infection trend daily Gi consult appreciated (4) Nausea: 2nd to COVID-19 infection cont scheduled anti-emetics, H2 brian, PPI, carafate appreciate GI consult CT abd/pelvis noted (5) DVT prophylaxis: increase lovenox to 40mg BID updated by phone tonight bedside rounds were about 30 minutes phone call with 5 minutes Admission and Anticipated Discharge Date Admission Date: February 03, 2020 Subjective patient reports COVID exposure ~12/13 or sooner. was looking after a woman in her 90s who ultimately tested + for COVID, and that woman is hospitalized out of town and actively dying from it. has had 2+ weeks of nausea/feeling very poorly, then about 10 days ago all symptoms worsened. thought she had ulcer. had no respiratory symptoms at home -- no cough, no dyspnea. requiring O2 now. thus, she has had COVID likely for at least 10 days, perhaps as long as 14+ days. daughter is a nurse at [employer] by report. no prior h/o lung disease. Review of Systems Constitutional: + fatigue, + weakness and + anorexia; no fever, no chills and no body aches none at home per her recollection Respiratory: no wheezing Cardiovascular: no chest pain Gastrointestinal: no abdominal pain Physical Exam Constitutional: well developed and well nourished; no acute distress and no altered mental status ENMT: external ear and nose normal, oropharynx normal Respiratory: no respiratory distress Auscultation: + crackles (1/[address] up back -- fine, dry sounding ); no rhonchi and no wheezes Cardiovascular: Rate/Rhythm: regular rate and regular rhythm Heart Sounds: normal S1 and normal S2; no murmur Vessels: posterior tibial pulses present and dorsalis pedis pulses present; no JVD Extremities: no edema Gastrointestinal (Abdomen): normal bowel sounds, soft, nontender, no hepatosplenomegaly Skin: no rashes, warm and dry Psychiatric: A+Ox3, euthymic affect Results & Data Results & Data ([facility]) Vital Signs (Past 12 Hours) Vital Signs Temp Pulse Resp BP Pulse Ox 02/04/20 23:03 37.5 C 73 18 148/81 H 91 02/04/20 15:35 36.6 C 73 18 148/81 H 93 Laboratory Results Laboratory Results - last 24 hr 02/04/20 02/04/20 02/04/20 09:49 09:56 09:56 PT 10.7 INR 1.0 D-Dimer 1440 H* Sodium 141 Potassium 3.6 Chloride 107 Carbon Dioxide 24 Anion Gap 9.0 BUN 19 H Creatinine 1.11 Est Cr Clr Drug Dosing 43.6 Est GFR ( Amer) 57.9 Est GFR (Non-Af Amer) 49.9 BUN/Creatinine Ratio 16.8 Glucose 153 H Calcium 9.0 Magnesium 2.4 Total Bilirubin 1.0 Direct Bilirubin 0.4 H AST 92 H ALT 94 H Alkaline Phosphatase 99 Total Creatine Kinase 608 H Total Protein 8.7 H Albumin 3.7 Procalcitonin < 0.05 Hepatitis A IgM Ab Hep Bs Antigen Hep B Core IgM Ab Hepatitis C Antibody 02/04/20 02/04/20 11:20 11:20 PT INR D-Dimer Sodium Potassium Chloride Carbon Dioxide Anion Gap BUN Creatinine Est Cr Clr Drug Dosing Est GFR ( Amer) Est GFR (Non-Af Amer) BUN/Creatinine Ratio Glucose Calcium Magnesium Total Bilirubin Direct Bilirubin AST ALT Alkaline Phosphatase Total Creatine Kinase Total Protein Albumin Procalcitonin Hepatitis A IgM Ab Pending Hep Bs Antigen Neg Hep B Core IgM Ab Pending Hepatitis C Antibody Neg PG Care Time/CCT Total # of Minutes Spent Total Time Spent with Patient: Total time spent is greater than 50% in coordination of care (as documented) at patient's floor/unit and/or counseling patient: Coding Level of Care Code 74350 Subseq Hosp Care Lvl 3 Diagnoses Pneumonia due to COVID-19 virus U07.1; J12.89 Acute respiratory failure with hypoxia J96.01 Abnormal LFTs R94.5 Nausea R11.0 DVT prophylaxis Z29.9
[2020-02-05] MEDS: PROMETHAZINE HCL 25 MG in SODIUM CHLORIDE 0.9% 50 ML IV PRN (01:57)
[2020-02-05] MEDS: NSS + 20MEQ KCL 20 MEQ/1,000 ML BAG IV SCH (06:03)
[2020-02-05] MEDS: ACETAMINOPHEN 325 MG TAB PO PRN (06:15)
[2020-02-05] MEDS ORDERED: SODIUM CHLORIDE 0.9% 1000ML 500 ML IV ONE (07:47)
[2020-02-05] MEDS: SUCRALFATE 1 GM TAB PO SCH ×4 (08:23→20:16)
--- NOTE | 2020-02-05 08:47 | XRay Report ---
SINGLE VIEW CHEST CLINICAL HISTORY: Hypoxemic respiratory failure. FINDINGS: An AP, portable, upright chest radiograph is compared to study dated 02/03/2020. The cardio mediastinal silhouette is unremarkable noting atherosclerotic calcification of the thoracic aorta. Mu ltifocal airspace consolidation is again seen. This is increasingly confluent as compared to 02/03/20. No large pleural effusion or pneumothorax is identified. The skeletal structures are osteopenic. The bony thorax is grossly intact. IMPRESSION: Multifocal airspace consolidation is increasingly confluent as compared to 02/03/2020. ACT 112: Negative or not required by law. Electronically signed by: Justin Boss M.D. 02/05/2020 8:46 AM
[2020-02-05 08:52] LABS: Albumin Level 2.8 gm/dl (3.4-5.0); BUN Creatinine Ratio 20.9 (10-20); Bilirubin Direct 0.2 mg/dl (0-0.2); Bilirubin,Total 0.6 mg/dl (0.2-1); C Reactive Protein 3.06 mg/dl (0-0.29); Calcium 8.3 mg/dl (8.5-10.1); Creatinine Clr Calc Pharmacy 56.9 ml/min; Est GFR (African American) 79.9; Est GFR (Non-African American) 68.9; Potassium 4.1 mmol/L (3.5-5.1); Total Protein 6.3 gm/dl (6.4-8.2)
[2020-02-05 09:26] LABS: D Dimer 1370 ug/L FEU (0-500)
[2020-02-05] MEDS: PANTOprazole 40 MG TAB PO SCH (09:44)
[2020-02-05] MEDS: ENOXAPARIN INJ 40 MG/0.4 ML SYR SQ SCH ×2 (09:45→20:16)
[2020-02-05] MEDS: ZINC SULFATE 220 MG CAPSULE PO SCH (09:46)
[2020-02-05] MEDS: FAMOTIDINE 20 MG in SYRINGE 3 ML IV SCH (09:48)
[2020-02-05] MEDS: dexAMETHasone 6 MG in SYRINGE 0 ML IV SCH (09:48)
[2020-02-05 11:11] LABS: Hepatitis A Antibody IgM NON-REACTIVE (NON-REACTIVE); Hepatitis B Core Antibody IgM NON-REACTIVE (NON-REACTIVE)
[2020-02-05] MEDS ORDERED: DOXYCYCLINE HYCLATE 100 MG in DEXTROSE 5% 100 ML IV SCH (11:30)
[2020-02-05] MEDS ORDERED: REMDESIVIR 200 MG in SODIUM CHLORIDE 0.9% 210 ML IV ONE (11:30)
[2020-02-05] MEDS ORDERED: FUROSEMIDE 20 MG in SYRINGE 0 ML IV ONE (13:11)
--- NOTE | 2020-02-05 13:20 | Hospitalist Progress Note ---
Date of Service February 05, 2020 Assessment & Plan (1) Pneumonia due to COVID-19 virus: Still largely asymptomatic at this time despite worsening hypoxia and escalating O2 requirements. We again discussed self-proning, pulm toilet/incentive/flutter, and Rx. Dexamethasone 6 mg IV daily - day #3/10. We discussed remdesivir and plasma again - both likely of little benefit given she is 10-14 days into illness course, especially remdesivir. However, with worsening cxr this am, worsening O2 requirements, new-onset fever -- will give both. Start remdesivir x 5 days. Discussed risks/benefits of convalescent plasma - ultimately patient gave consent. T/S. FDA information handout on plasma given. Cont NC O2 - keep sats 90-94%. Zinc sulfate 220 mg p.o. daily x 10 days. Ventolin prn Procal is normal suggesting this is likely ALL COVID-related. Suspect cytokine storm and inflammatory cascade from COVID. Can't rule out an element of pulmonary edema - give lasix 20mg IV x 1 and reassess clinical response. Start IV rocephin/doxy to cover for slight possibility of superimposed bacterial pneumonia but again unlikely given the procal level. Low threshold to transfer patient to telemetry with worsening status. (2) Acute respiratory failure with hypoxia: 2nd COVID-19 pneumonia. see above discussion (3) Abnormal LFTs: likely 2nd to COVID-19 infection trend daily Gi consult appreciated (4) Nausea: 2nd to COVID-19 infection can't rule out gastritis/esophagitis/other upper GI pathology either way nausea improved; tolerated diet this am after recovery from COVID will need outpatient GI f/u and probable EGD recent CT abd/pelvis noted lipase noted cont scheduled anti-emetics, H2 brian, PPI, carafate appreciate GI consult (5) DVT prophylaxis: lovenox to 40mg BID updated by phone yesterday updated ruddy Dang's daughter - she is a nurse at [employer] extensive discussion, 20-25 min in duration questions answered care plan reviewed phone # - [phone] total time spent today 65 minutes including extensive bedside visit, extensive phone conversation with daughter, review of cxr and ordering plasma/other therapies, etc. Admission and Anticipated Discharge Date Admission Date: February 03, 2020 Subjective patient continues to deny any dyspnea or cough or LONODN despite escalating O2 requirements. occasional nausea but MUCH improved and able to eat breakfast this am. had fever overnight to >39; had significant cold chills and sweats and felt very poorly overnight from such. we discussed heavily plasma and remdesivir - discussed that neither may provide significant benefit since she is 10-14 days into illness. with that said, with worsening status, we talked about initiating both. she ultimately elected to receive plasma. risks/benefits discussed. [facility] plasma handout given for her to read. ambulating to bathroom - despite no dyspnea she desatted to 70s/80s. no other new symptoms. Review of Systems Constitutional: + fever, + chills, + sweats, + fatigue and + weakness Respiratory: no dyspnea, no dyspnea on exertion, no sputum production and no wheezing Cardiovascular: no chest pain Gastrointestinal: + nausea; no abdominal pain, no vomiting and no diarrhea/loose stools Musculoskeletal: no myalgia Physical Exam Constitutional: well developed and well nourished; no acute distress and no altered mental status NO DYSPNEA or respiratory distress ENMT: external ear and nose normal, oropharynx normal Respiratory: no respiratory distress Auscultation: + crackles (1/2 way up back -- fine, dry sounding - worse today); no rhonchi and no wheezes Cardiovascular: Rate/Rhythm: regular rate and regular rhythm Heart Sounds: normal S1 and normal S2; no murmur Vessels: posterior tibial pulses present and dorsalis pedis pulses present; no JVD Extremities: no edema Gastrointestinal (Abdomen): normal bowel sounds, soft, nontender, no hepatosplenomegaly Skin: no rashes, warm and dry Psychiatric: A+Ox3, euthymic affect Results & Data Results & Data ([facility]) Vital Signs (Past 12 Hours) Vital Signs Temp Pulse Resp BP Pulse Ox 02/05/20 10:06 36.7 C 02/05/20 07:33 38.1 C H 100 H 24 99/60 L 89 L 02/05/20 07:11 97 02/05/20 06:31 90 02/05/20 06:15 88 L 02/05/20 06:07 39.4 C H 87 24 123/72 90 02/05/20 06:03 91 02/05/20 06:02 76 L 02/05/20 03:14 92 02/05/20 03:12 87 L 02/05/20 02:30 91 02/05/20 02:22 89 L 02/05/20 02:21 87 L 02/05/20 02:20 85 L Laboratory Results Laboratory Results - last 24 hr 02/04/20 02/05/20 02/05/20 11:20 05:46 05:46 D-Dimer 1370 H* Sodium 140 Potassium 4.1 Chloride 107 Carbon Dioxide 24 Anion Gap 9.0 BUN 18 Creatinine 0.85 Est Cr Clr Drug Dosing 56.9 Est GFR ( Amer) 79.9 Est GFR (Non-Af Amer) 68.9 BUN/Creatinine Ratio 20.9 H Glucose 85 Calcium 8.3 L Total Bilirubin 0.6 Direct Bilirubin 0.2 AST 53 H ALT 59 Alkaline Phosphatase 70 C-Reactive Protein 3.06 H Total Protein 6.3 L D Albumin 2.8 L Procalcitonin Hepatitis A IgM Ab NON-REACTIVE Hep B Core IgM Ab NON-REACTIVE 02/05/20 05:54 D-Dimer Sodium Potassium Chloride Carbon Dioxide Anion Gap BUN Creatinine Est Cr Clr Drug Dosing Est GFR ( Amer) Est GFR (Non-Af Amer) BUN/Creatinine Ratio Glucose Calcium Total Bilirubin Direct Bilirubin AST ALT Alkaline Phosphatase C-Reactive Protein Total Protein Albumin Procalcitonin 0.07 Hepatitis A IgM Ab Hep B Core IgM Ab PG Care Time/CCT Total # of Minutes Spent Total Time Spent with Patient: Total time spent is greater than 50% in coordination of care (as documented) at patient's floor/unit and/or counseling patient: Prolonged Care Time Prolonged Care Time: Yes Total Prolonged Care Time: 65 Coding Level of Care Code 11115 Subseq Hosp Care Lvl 3 (25 - SIGNIFICANT, SEPARATELY IDENTIFIABLE ) Diagnoses Pneumonia due to COVID-19 virus U07.1; J12.89 Acute respiratory failure with hypoxia J96.01 Abnormal LFTs R94.5 Nausea R11.0 DVT prophylaxis Z29.9 Additional Codes Prolonged Care Time - Prolonged Care Time: Yes ([id number]) Time Spent (min) 65
[2020-02-05] MEDS ORDERED: FUROSEMIDE 40 MG/4 ML VIAL IV ONE ×2 (13:30→16:09)
[2020-02-05] MEDS: cefTRIAXone SODIUM 2,000 MG in DEXTROSE 5% 50 ML IV SCH (14:02)
[2020-02-05] MEDS: DOXYCYCLINE HYCLATE 100 MG in DEXTROSE 5% 100 ML IV SCH ×2 (14:04→23:08)
[2020-02-05] MEDS: SODIUM CHLORIDE 0.9% 10ML FLUSH IV SCH (14:22)
[2020-02-06 07:40] LABS: BUN Creatinine Ratio 28.8 (10-20); Calcium 8.1 mg/dl (8.5-10.1); Creatinine Clr Calc Pharmacy 67.2 ml/min; Est GFR (African American) 97.7; Est GFR (Non-African American) 84.3; Phosphorus 3.2 mg/dl (2.5-4.9); Potassium 3.7 mmol/L (3.5-5.1)
[2020-02-06] MEDS: SUCRALFATE 1 GM TAB PO SCH ×4 (08:34→21:59)
[2020-02-06] MEDS: ZINC SULFATE 220 MG CAPSULE PO SCH (08:34)
[2020-02-06] MEDS: ENOXAPARIN INJ 40 MG/0.4 ML SYR SQ SCH ×2 (08:34→21:59)
[2020-02-06] MEDS: FAMOTIDINE 20 MG in SYRINGE 3 ML IV SCH (08:34)
[2020-02-06] MEDS: PANTOprazole 40 MG TAB PO SCH (08:34)
[2020-02-06] MEDS: dexAMETHasone 6 MG in SYRINGE 0 ML IV SCH (08:34)
[2020-02-06] MEDS: REMDESIVIR 100 MG in SODIUM CHLORIDE 0.9% 230 ML IV SCH (11:25)
[2020-02-06] MEDS: DOXYCYCLINE HYCLATE 100 MG in DEXTROSE 5% 100 ML IV SCH ×2 (11:25→23:09)
[2020-02-06] MEDS: cefTRIAXone SODIUM 2,000 MG in DEXTROSE 5% 50 ML IV SCH (11:25)
[2020-02-06] MEDS: SODIUM CHLORIDE 0.9% 10ML FLUSH IV SCH (13:03)
--- NOTE | 2020-02-06 22:43 | Hospitalist Progress Note ---
Date of Service February 06, 2020 Assessment & Plan (1) Pneumonia due to COVID-19 virus: Still largely asymptomatic at this time despite worsening hypoxia and escalating O2 requirements. We again discussed self-proning, pulm toilet/incentive/flutter, and Rx. Dexamethasone 6 mg IV daily. We discussed remdesivir and plasma again - both likely of little benefit given she is 10-14 days into illness course, especially remdesivir. However, with worsening cxr this am, worsening O2 requirements, new-onset fever -- will give both. Start remdesivir x 5 days. Today is day 2. Discussed risks/benefits of convalescent plasma - ultimately patient gave consent. T/S. FDA information handout on plasma given. Cont NC O2 - keep sats 90-94%. Zinc sulfate 220 mg p.o. daily x 10 days. Ventolin prn Procal is normal suggesting this is likely ALL COVID-related. Suspect cytokine storm and inflammatory cascade from COVID. Can't rule out an element of pulmonary edema - give lasix 20mg IV x 1 and reassess clinical response. Continue IV rocephin/doxy to cover for slight possibility of superimposed bacterial pneumonia but again unlikely given the procal level. Low threshold to transfer patient to telemetry with worsening status. (2) Acute respiratory failure with hypoxia: 2nd COVID-19 pneumonia. see above discussion (3) Abnormal LFTs: likely 2nd to COVID-19 infection trend daily Gi consult appreciated (4) Nausea: 2nd to COVID-19 infection can't rule out gastritis/esophagitis/other upper GI pathology either way nausea improved; tolerated diet this am after recovery from COVID will need outpatient GI f/u and probable EGD recent CT abd/pelvis noted lipase noted cont scheduled anti-emetics, H2 brian, PPI, carafate appreciate GI consult (5) DVT prophylaxis: lovenox to 40mg BID Admission and Anticipated Discharge Date Admission Date: February 03, 2020 Subjective 69 yo female reports feeling well. She has no new complaints. Review of Systems Review of Systems: The patient denies chest pain, palpitations, cough, lower extremity swelling, sore throat, fevers, chills, sweats, vomiting, diarrhea , constipation, blood in urine or stool, dysuria, urinary frequency or urgency, lightheadedness, dizziness, headache, memory loss, loss of consciousness, rash, abnormal bruising or bleeding, imbalance, focal weakness, numbness or tingling in arms or legs, generalized arthralgias or myalgias, back or neck pain, or night sweats. The review of systems is otherwise negative other than for that already noted above, and at least 10 systems have been reviewed. Physical Exam Physical Exam: Constitutional: well developed and well nourished; no acute distress and no altered mental status NO DYSPNEA or respiratory distress ENMT: external ear and nose normal, oropharynx normal Respiratory: no respiratory distress Auscultation: + crackles (1/[address] up back -- fine, dry sounding - worse today); no rhonchi and no wheezes Cardiovascular: Rate/Rhythm: regular rate and regular rhythm Heart Sounds: normal S1 and normal S2; no murmur Vessels: posterior tibial pulses present and dorsalis pedis pulses present; no JVD Extremities: no edema Gastrointestinal (Abdomen): normal bowel sounds, soft, nontender, no hepatosplenomegaly Skin: no rashes, warm and dry Psychiatric: A+Ox3, euthymic affect Results & Data Results & Data ([facility]) Vital Signs (Past 12 Hours) Vital Signs Temp Pulse Resp BP Pulse Ox 02/06/20 14:17 36.7 C 70 18 126/74 88 L PG Care Time/CCT Total # of Minutes Spent Total Time Spent with Patient: Total time spent is greater than 50% in coordinat ion of care (as documented) at patient's floor/unit and/or counseling patient: Coding Level of Care Code 55953 Subseq Hosp Care Lvl 3 Diagnoses Pneumonia due to COVID-19 virus U07.1; J12.89 Acute respiratory failure with hypoxia J96.01 Abnormal LFTs R94.5 Nausea R11.0 DVT prophylaxis Z29.9 Time Spent (min) 35
[2020-02-07] MEDS: SUCRALFATE 1 GM TAB PO SCH ×4 (07:55→19:54)
[2020-02-07] MEDS: ZINC SULFATE 220 MG CAPSULE PO SCH (07:55)
[2020-02-07] MEDS: PANTOprazole 40 MG TAB PO SCH (07:55)
[2020-02-07] MEDS: dexAMETHasone 6 MG in SYRINGE 0 ML IV SCH (07:55)
[2020-02-07] MEDS: ENOXAPARIN INJ 40 MG/0.4 ML SYR SQ SCH ×2 (07:55→19:54)
[2020-02-07] MEDS: FAMOTIDINE 20 MG in SYRINGE 3 ML IV SCH (07:55)
[2020-02-07] MEDS: ACETAMINOPHEN 325 MG TAB PO PRN (08:03)
[2020-02-07 09:23] LABS: Creatinine Clr Calc Pharmacy 60.5 ml/min; Est GFR (Non-African American) 74.2
[2020-02-07] MEDS: DOXYCYCLINE HYCLATE 100 MG in DEXTROSE 5% 100 ML IV SCH ×2 (11:22→23:38)
[2020-02-07] MEDS: cefTRIAXone SODIUM 2,000 MG in DEXTROSE 5% 50 ML IV SCH (11:22)
[2020-02-07] MEDS: REMDESIVIR 100 MG in SODIUM CHLORIDE 0.9% 230 ML IV SCH (11:57)
[2020-02-07] MEDS: SODIUM CHLORIDE 0.9% 10ML FLUSH IV SCH (13:17)
--- NOTE | 2020-02-07 13:45 | XRay Report ---
SINGLE VIEW CHEST CLINICAL HISTORY: Hypoxia. FINDINGS: An AP, portable, upright chest radiograph is compared to study dated 02/05/2020. The examin ation is degraded by portable technique and patient rotation. The cardiomediastinal silhouette is un remarkable noting atherosclerotic calcification of the thoracic aorta. Multifocal airspace consolidat ion is again seen, similar to previous. Trace pleural effusions are suspected. No pneumothorax is lc ntified. The skeletal structures are osteopenic. The bony thorax is grossly intact. IMPRESSION: Multifocal airspace consolidation has not significantly changed from 02/05/2020. ACT 112: Negative or not required by law. Electronically signed by: Justin Boss M.D. 02/07/2020 1:43 PM
--- NOTE | 2020-02-07 23:06 | Hospitalist Progress Note ---
Date of Service February 07, 2020 Assessment & Plan (1) Pneumonia due to COVID-19 virus: Still largely asymptomatic at this time despite worsening hypoxia and escalating O2 requirements. We again discussed self-proning, pulm toilet/incentive/flutter, and Rx. Patient has been stable while here. Does not need to be transferred to another floor. Dexamethasone 6 mg IV daily. We discussed remdesivir and plasma again - both likely of little benefit given she is 10-14 days into illness course, especially remdesivir. However, with worsening cxr this am, worsening O2 requirements, new-onset fever -- will give both. Continue remdesivir x 5 days. Discussed risks/benefits of convalescent plasma - ultimately patient gave consent. T/S. FDA information handout on plasma given. Cont NC O2 - keep sats 90-94%. Zinc sulfate 220 mg p.o. daily x 10 days. Ventolin prn Procal is normal suggesting this is likely ALL COVID-related. Suspect cytokine storm and inflammatory cascade from COVID. Can't rule out an element of pulmonary edema - give lasix 20mg IV x 1 and reassess clinical response. Continue IV rocephin/doxy to cover for slight possibility of superimposed bacterial pneumonia but again unlikely given the procal level. Low threshold to transfer patient to telemetry with worsening status. (2) Acute respiratory failure with hypoxia: 2nd COVID-19 pneumonia. see above discussion (3) Abnormal LFTs: likely 2nd to COVID-19 infection trend daily Gi consult appreciated (4) Nausea: 2nd to COVID-19 infection can't rule out gastritis/esophagitis/other upper GI pathology either way nausea improved; tolerated diet this am after recovery from COVID will need outpatient GI f/u and probable EGD recent CT abd/pelvis noted lipase noted cont scheduled anti-emetics, H2 brian, PPI, carafate appreciate GI consult (5) DVT prophylaxis: lovenox to 40mg BID Admission and Anticipated Discharge Date Admission Date: February 03, 2020 Subjective 69 yo female reports feeling somewhat better today. She reports that when she wakes up in the morning she requires more oxygen but then her requirements imporve over time. Review of Systems Review of Systems: All systems reviewed & are unremarkable except as noted in HPI & below Physical Exam Physical Exam: Constitutional: well developed and well nourished; no acute distress and no altered mental status NO DYSPNEA or respiratory distress ENMT: external ear and nose normal, oropharynx normal Respiratory: no respiratory distress Auscultation: + crackles (1/[address] up back -- fine, dry sounding - worse today); no rhonchi and no wheezes Cardiovascular: Rate/Rhythm: regular rate and regular rhythm Heart Sounds: normal S1 and normal S2; no murmur Vessels: posterior tibial pulses present and dorsalis pedis pulses present; no JVD Extremities: no edema Gastrointestinal (Abdomen): normal bowel sounds, soft, nontender, no hepatosplenomegaly Skin: no rashes, warm and dry Psychiatric: A+Ox3, euthymic affect Results & Data Results & Data ([facility]) Vital Signs (Past 12 Hours) Vital Signs Temp Pulse Resp BP Pulse Ox 02/07/20 16:04 96 02/07/20 15:38 36.5 C 69 16 131/70 85 L PG Care Time/CCT Total # of Minutes Spent Total Time Spent with Patient: Total time spent is greater than 50% in coordination of care (as documented) at patient's floor/unit and/or counseling patient: Coding Level of Care Code 75944 Subseq Hosp Care Lvl 2 Diagnoses Pneumonia due to COVID-19 virus U07.1; J12.89 Acute respiratory failure with hypoxia J96.01 Abnormal LFTs R94.5 Nausea R11.0 DVT prophylaxis Z29.9 Time Spent (min) 25
[2020-02-08] MEDS: SUCRALFATE 1 GM TAB PO SCH ×4 (07:40→20:52)
[2020-02-08] MEDS: PANTOprazole 40 MG TAB PO SCH (08:18)
[2020-02-08] MEDS: ENOXAPARIN INJ 40 MG/0.4 ML SYR SQ SCH ×2 (08:18→20:53)
[2020-02-08] MEDS: dexAMETHasone 6 MG in SYRINGE 0 ML IV SCH (08:18)
[2020-02-08] MEDS: ZINC SULFATE 220 MG CAPSULE PO SCH (08:18)
[2020-02-08] MEDS: ACETAMINOPHEN 325 MG TAB PO PRN (08:20)
[2020-02-08] MEDS: FAMOTIDINE 20 MG in SYRINGE 3 ML IV SCH (08:21)
[2020-02-08] MEDS: cefTRIAXone SODIUM 2,000 MG in DEXTROSE 5% 50 ML IV SCH (11:45)
[2020-02-08] MEDS: REMDESIVIR 100 MG in SODIUM CHLORIDE 0.9% 230 ML IV SCH (12:47)
[2020-02-08] MEDS: DOXYCYCLINE HYCLATE 100 MG in DEXTROSE 5% 100 ML IV SCH ×2 (12:47→23:11)
[2020-02-08] MEDS: SODIUM CHLORIDE 0.9% 10ML FLUSH IV SCH (14:48)
--- NOTE | 2020-02-08 14:52 | Hospitalist Progress Note ---
Date of Service February 08, 2020 Assessment & Plan (1) Pneumonia due to COVID-19 virus: Still largely asymptomatic at this time despite worsening hypoxia and escalating O2 requirements. We again discussed self-proning, pulm toilet/incentive/flutter, and Rx. Patient has been stable while here. Does not need to be transferred to another floor. Dexamethasone 6 mg IV daily. We discussed remdesivir and plasma again - both likely of little benefit given she is 10-14 days into illness course, especially remdesivir. However, with worsening cxr this am, worsening O2 requirements, new-onset fever -- will give both. Continue remdesivir x 5 days. 02/09/20 will be final dose. Discussed risks/benefits of convalescent plasma - ultimately patient gave consent. T/S. FDA information handout on plasma given. Cont NC O2 - keep sats 90-94%. Zinc sulfate 220 mg p.o. daily x 10 days. Ventolin prn Procal is normal suggesting this is likely ALL COVID-related. Suspect cytokine storm and inflammatory cascade from COVID. Continue IV rocephin/doxy to cover for slight possibility of superimposed bacterial pneumonia but again unlikely given the procal level. Though patient has remainned stabke on this floor, will continue to have low threshold to transfer patient to telemetry with worsening status. (2) Acute respiratory failure with hypoxia: 2nd COVID-19 pneumonia. see above discussion (3) Abnormal LFTs: likely 2nd to COVID-19 infection trend daily Gi consult appreciated (4) Nausea: 2nd to COVID-19 infection can't rule out gastritis/esophagitis/other upper GI pathology either way nausea improved; tolerating diet; asking for regular diet. after recovery from COVID will need outpatient GI f/u and probable EGD recent CT abd/pelvis noted lipase noted cont scheduled anti-emetics, H2 brian, PPI, carafate appreciate GI consult (5) DVT prophylaxis: lovenox to 40mg BID Admission and Anticipated Discharge Date Admission Date: February 03, 2020 Subjective 69 yo female reports that she feels well when she is resting in bed. However when she ambulates to the bathroom she gets short of breath. She required more oxygen this morning when she walked to the bathroom especially when she was standing by the sink cleaning her face after using the toilet. She felt like she may have overdone it. Her oxygen requirements go up to 15 but once she is in bed, return to 6 liters. Review of Systems Review of Systems: All systems reviewed & are unremarkable except as noted in HPI & below Physical Exam Physical Exam: Constitutional: well developed and well nourished; no acute distress and no altered mental status NO DYSPNEA or respiratory distress ENMT: external ear and nose normal, oropharynx normal Respiratory: no respiratory distress Auscultation: + crackles (1/[address] up back -- fine, dry sounding - worse today); no rhonchi and no wheezes Cardiovascular: Rate/Rhythm: regular rate and regular rhythm Heart Sounds: normal S1 and normal S2; no murmur Vessels: posterior tibial pulses present and dorsalis pedis pulses present; no JVD Extremities: no edema Gastrointestinal (Abdomen): normal bowel sounds, soft, nontender, no hepatosplenomegaly Skin: no rashes, warm and dry Psychiatric: A+Ox3, euthymic affect Results & Data Results & Data ([facility]) Vital Signs (Past 12 Hours) Vital Signs Temp Pulse Resp BP Pulse Ox 02/08/20 08:21 91 02/08/20 07:26 36.6 C 55 L 22 123/67 87 L PG Care Time/CCT Total # of Minutes Spent Total Time Spent with Patient: Total time spent is greater than 50% in coordination of care (as documented) at patient's floor/unit and/or counseling patient: Coding Level of Care Code 19253 Subseq Hosp Care Lvl 3 Diagnoses Pneumonia due to COVID-19 virus U07.1; J12.89 Acute respiratory failure with hypoxia J96.01 Abnormal LFTs R94.5 Nausea R11.0 DVT prophylaxis Z29.9 Time Spent (min) 35
[2020-02-09] MEDS: SUCRALFATE 1 GM TAB PO SCH ×4 (07:31→20:11)
[2020-02-09] MEDS: ENOXAPARIN INJ 40 MG/0.4 ML SYR SQ SCH ×2 (08:59→20:11)
[2020-02-09] MEDS: dexAMETHasone 6 MG in SYRINGE 0 ML IV SCH (08:59)
[2020-02-09] MEDS: PANTOprazole 40 MG TAB PO SCH (09:00)
[2020-02-09] MEDS: ZINC SULFATE 220 MG CAPSULE PO SCH (09:00)
[2020-02-09] MEDS: FAMOTIDINE 20 MG in SYRINGE 3 ML IV SCH (09:04)
[2020-02-09] MEDS: cefTRIAXone SODIUM 2,000 MG in DEXTROSE 5% 50 ML IV SCH (10:45)
[2020-02-09 10:47] LABS: D Dimer 890 ug/L FEU (0-500)
[2020-02-09 10:54] LABS: BUN Creatinine Ratio 29.1 (10-20); Calcium 8.5 mg/dl (8.5-10.1); Creatinine Clr Calc Pharmacy 45.6 ml/min; Est GFR (African American) 61.2; Est GFR (Non-African American) 52.8; Potassium 3.8 mmol/L (3.5-5.1)
[2020-02-09] MEDS: REMDESIVIR 100 MG in SODIUM CHLORIDE 0.9% 230 ML IV SCH (11:31)
[2020-02-09] MEDS: SODIUM CHLORIDE 0.9% 10ML FLUSH IV SCH (12:47)
[2020-02-09] MEDS: DOXYCYCLINE HYCLATE 100 MG in DEXTROSE 5% 100 ML IV SCH ×2 (12:48→23:12)
--- NOTE | 2020-02-09 18:14 | Hospitalist Progress Note ---
Date of Service February 09, 2020 Assessment & Plan (1) Pneumonia due to COVID-19 virus: Slow improvement. Continue dexamethasone 6 mg IV daily - day #7/10. Completed 5-day course of remdesivir. Received plasma earlier this stay. Cont NC O2 - keep sats 90-94% - wean as tolerated. Zinc sulfate 220 mg p.o. daily x 10 days. Today is day 8. Ventolin prn. Day #5 of IV rocephin/doxy to cover for possibility of superimposed bacterial pneumonia but again unlikely given the procal level. Can d/c IV abx today; change to PO levaquin tomorrow for 2 more days of Rx then stop. Cont self-proning, flutter valve, incentive martha. (2) Acute respiratory failure with hypoxia: 2nd COVID-19 pneumonia and probably mild/moderate ARDS from such. Slowly improving. see above discussion (3) Abnormal LFTs: likely 2nd to COVID-19 infection trend every 2-3 days Gi consult appreciated nausea largely resolved change IV pepcid to PO (4) Nausea: 2nd to COVID-19 infection can't rule out gastritis/esophagitis/other upper GI pathology either way nausea improved; tolerating diet after recovery from COVID will need outpatient GI f/u and probable EGD recent CT abd/pelvis noted lipase wnl cont anti-emetics, H2 brian, PPI, carafate appreciate GI consult (5) DVT prophylaxis: lovenox to 40mg BID updated Laurence, pt's daughter, today she is a nurse at [employer] extensive discussion, 15 min in duration questions answered care plan reviewed phone # - [phone] PT/OT Admission and Anticipated Discharge Date Admission Date: February 03, 2020 Subjective patient c/o fatigue and [place] but no dyspnea at rest. scant cough. no PND. no fevers/chills. appetite improved. overall slowly feeling better. no new complaints in comparison to prior visits. minimal nausea. no vomiting. no diarrhea. Review of Systems Constitutional: + fatigue; no fever, no chills and no body aches Ear, Nose, Mouth, Throat: no loss of taste/smell Respiratory: no hemoptysis and no wheezing Cardiovascular: no chest pain Physical Exam Constitutional: well developed and well nourished; no acute distress and no altered mental status ENMT: external ear and nose normal, oropharynx normal Respiratory: no respiratory distress Auscultation: + crackles (1/2 way up back -- fine, dry sounding - no change from prior exam); no rhonchi and no wheezes Cardiovascular: Rate/Rhythm: regular rate and regular rhythm Heart Sounds: normal S1 and normal S2; no murmur Vessels: posterior tibial pulses present and dorsalis pedis pulses present; no JVD Extremities: no edema Gastrointestinal (Abdomen): normal bowel sounds, soft, nontender, no hepatosplenomegaly Skin: no rashes, warm and dry Psychiatric: A+Ox3, euthymic affect Results & Data Results & Data ([facility]) Vital Signs (Past 12 Hours) Vital Signs Temp Pulse Resp BP Pulse Ox 02/09/20 15:06 36.4 C L 73 16 158/64 H 94 02/09/20 07:29 36.4 C L 64 16 139/76 91 Laboratory Results Laboratory Results - last 24 hr 02/09/20 02/09/20 02/09/20 10:01 10:01 10:01 D-Dimer 890 H* Sodium 138 Potassium 3.8 Chloride 106 Carbon Dioxide 26 Anion Gap 6.0 BUN 31 H Creatinine 1.06 Est Cr Clr Drug Dosing 45.6 Est GFR ( Amer) 61.2 Est GFR (Non-Af Amer) 52.8 BUN/Creatinine Ratio 29.1 H Glucose 112 H Calcium 8.5 AST 88 H Total Creatine Kinase 83 Procalcitonin 0.05 PG Care Time/CCT Total # of Minutes Spent Total Time Spent with Patient: Total time spent is greater than 50% in coordination of care (as documented) at patient's floor/unit and/or counseling patient: Coding Level of Care Code 11059 Subseq Hosp Care Lvl 3 Diagnoses Pneumonia due to COVID-19 virus U07.1; J12.89 Acute respiratory failure with hypoxia J96.01 Abnormal LFTs R94.5 Nausea R11.0 DVT prophylaxis Z29.9
[2020-02-10 06:40] LABS: Creatinine Clr Calc Pharmacy 59.7 ml/min; Est GFR (African American) 84.7; Est GFR (Non-African American) 73.1
[2020-02-10] MEDS: SUCRALFATE 1 GM TAB PO SCH ×4 (07:53→20:33)
[2020-02-10] MEDS: ENOXAPARIN INJ 40 MG/0.4 ML SYR SQ SCH ×2 (07:54→20:33)
[2020-02-10] MEDS: ZINC SULFATE 220 MG CAPSULE PO SCH (08:25)
[2020-02-10] MEDS: FAMOTIDINE 20 MG in SYRINGE 3 ML IV SCH (08:25)
[2020-02-10] MEDS: dexAMETHasone 6 MG in SYRINGE 0 ML IV SCH (08:25)
[2020-02-10] MEDS: PANTOprazole 40 MG TAB PO SCH (08:25)
[2020-02-10] MEDS: ADVANCED PROBIOTIC 1250 MG CAPSULE PO SCH (10:21)
[2020-02-10] MEDS: levoFLOXacin 750 MG TAB PO SCH (10:21)
[2020-02-10] MEDS: FAMOTIDINE 20 MG TAB PO SCH (20:32)
--- NOTE | 2020-02-10 23:53 | Hospitalist Progress Note ---
Date of Service February 10, 2020 Assessment & Plan (1) Pneumonia due to COVID-19 virus: Continues to improve. Continue dexamethasone 6 mg IV daily - day #8/10. Completed 5-day course of remdesivir. Received plasma earlier this stay. Cont NC O2 - keep sats 90-94% - wean as tolerated. Zinc sulfate 220 mg p.o. daily x 10 days. Today is day 9. Ventolin prn. Completed 5 days of IV rocephin/doxy to cover for possibility of superimposed bacterial pneumonia. Changed to levaquin po x 2 days today. Lactinex. Cont self-proning, flutter valve, incentive martha. (2) Acute respiratory failure with hypoxia: 2nd COVID-19 pneumonia and probably mild/moderate ARDS from such. Slowly improving. Wean O2 as tolerated. (3) Abnormal LFTs: likely 2nd to COVID-19 infection trend every 2-3 days Gi consult appreciated nausea resolved cont pepcid and PPI along w/ carafate (4) Nausea: 2nd to COVID-19 infection can't rule out gastritis/esophagitis/other upper GI pathology either way nausea resolved; tolerating diet after recovery from COVID will need outpatient GI f/u and probable EGD recent CT abd/pelvis noted lipase wnl cont anti-emetics, H2 brian, PPI, carafate appreciate GI consult (5) DVT prophylaxis: lovenox to 40mg BID updated Laurence, pt's daughter, yesterday she is a nurse at [employer] phone # - [phone] cont PT/OT if we are successful at weaning the NC O2 to reasonable level we can d/c next 2 days or so pleased w/ her progress Admission and Anticipated Discharge Date Admission Date: February 03, 2020 Subjective pt's only complaint is that of [place] with going to the Bathroom and doing her ADLs. otherwise no dyspnea/pnd/orthopnea at rest. appetite is good. no nausea. no fevers/chills/sweats/abd pain/chest pain. no diarrhea. she is pleased w/ her progress. Review of Systems Respiratory: no hemoptysis, no sputum production and no wheezing Cardiovascular: no chest pain Gastrointestinal: no nausea and no vomiting Musculoskeletal: no myalgia Physical Exam Constitutional: well developed and well nourished; no acute distress and no altered mental status ENMT: external ear and nose normal, oropharynx normal Respiratory: no respiratory distress Auscultation: + crackles (1/2 way up back -- fine, dry sounding - left base w/ a bit more airation ); no rhonchi and no wheezes Cardiovascular: Rate/Rhythm: regular rate and regular rhythm Heart Sounds: normal S1 and normal S2; no murmur Vessels: posterior tibial pulses present and dorsalis pedis pulses present; no JVD Extremities: no edema Gastrointestinal (Abdomen): normal bowel sounds, soft, nontender, no hepatosplenomegaly Psychiatric: A+Ox3, euthymic affect Results & Data Results & Data ([facility]) Vital Signs (Past 12 Hours) Vital Signs Temp Pulse Resp BP Pulse Ox 02/10/20 23:24 36.6 C 61 18 145/74 H 92 02/10/20 14:56 36.6 C 70 16 122/76 90 Laboratory Results Laboratory Results - last 24 hr 02/10/20 05:44 Creatinine 0.81 Est Cr Clr Drug Dosing 59.7 Est GFR ( Amer) 84.7 Est GFR (Non-Af Amer) 73.1 PG Care Time/CCT Total # of Minutes Spent Total Time Spent with Patient: Total time spent is greater than 50% in coordination of care (as documented) at patient's floor/unit and/or counseling patient: Coding Level of Care Code 91054 Subseq Hosp Care Lvl 2 Diagnoses Pneumonia due to COVID-19 virus U07.1; J12.89 Acute respiratory failure with hypoxia J96.01 Abnormal LFTs R94.5 Nausea R11.0 DVT prophylaxis Z29.9
[2020-02-11 08:04] LABS: Hematocrit (blood only) 36.1 % (37-47); Mean Corpuscular Hgb Conc 33.2 g/dL (32-36); Mean Corpuscular Volume 93.3 fL (80-100); Mean Platelet Volume 10.9 fL (7.4-10.4); Nucleated RBC # (auto) 0.04 K/uL (0-0); Nucleated RBC % (auto) 0.2 %; Platelet Count 301 K/uL (130-400); RDW Coefficient of Variation 13.9 % (11.5-14.5); RDW Standard Deviation 46.1 fL (36.4-46.3); Red Blood Count 3.87 M/uL (4.2-5.4); White Blood Count 17.71 K/uL (4.8-10.8)
[2020-02-11] MEDS: dexAMETHasone 6 MG in SYRINGE 0 ML IV SCH (08:28)
[2020-02-11] MEDS: ADVANCED PROBIOTIC 1250 MG CAPSULE PO SCH (08:28)
[2020-02-11] MEDS: SUCRALFATE 1 GM TAB PO SCH ×4 (08:29→21:29)
[2020-02-11] MEDS: FAMOTIDINE 20 MG TAB PO SCH ×2 (08:29→21:29)
[2020-02-11] MEDS: ENOXAPARIN INJ 40 MG/0.4 ML SYR SQ SCH ×2 (08:29→21:29)
[2020-02-11] MEDS: ZINC SULFATE 220 MG CAPSULE PO SCH (08:29)
[2020-02-11] MEDS: PANTOprazole 40 MG TAB PO SCH (08:29)
[2020-02-11 08:35] LABS: BUN Creatinine Ratio 33.4 (10-20); Calcium 9.1 mg/dl (8.5-10.1); Est GFR (African American) 71.7; Est GFR (Non-African American) 61.8; Potassium 3.8 mmol/L (3.5-5.1)
[2020-02-11] MEDS: levoFLOXacin 750 MG TAB PO SCH (10:36)
[2020-02-11] MEDS: CHOLECALCIFEROL 1,000 UNITS 25 MCG TAB PO SCH (12:24)
--- NOTE | 2020-02-11 20:05 | Hospitalist Progress Note ---
Date of Service February 11, 2020 Assessment & Plan (1) Pneumonia due to COVID-19 virus: Continues to improve. Continue dexamethasone 6 mg IV daily - day #9/10. Completed 5-day course of remdesivir. Received plasma earlier this stay. Cont NC O2 - keep sats 90-94% - wean as tolerated. Zinc sulfate 220 mg p.o. daily x 10 days. Today is day 10. Ventolin prn. Completed 5 days of IV rocephin/doxy to cover for possibility of superimposed bacterial pneumonia. Then completed levaquin po x 2 days. Total 7 days of IV/PO abx. Cont self-proning, flutter valve, incentive martha, pulmonary toilet. Nursing staff walked patient in hallway on her NC O2 6 L. Desatted to 83/84% with 6 L on. This is improvement. Nothing fancy moving forward to get her well - time, steroids, pulmonary toilet. Consider CTA chest, however, to r/o PEs. (2) Acute respiratory failure with hypoxia: 2nd COVID-19 pneumonia and probably mild/moderate ARDS from such. Slowly improving. Wean O2 as tolerated. See above. (3) Abnormal LFTs: likely 2nd to COVID-19 infection trend every 2-3 days Gi consult appreciated nausea resolved cont pepcid and PPI along w/ carafate (4) Nausea: 2nd to COVID-19 infection can't rule out gastritis/esophagitis/other upper GI pathology either way nausea resolved; tolerating diet after recovery from COVID will need outpatient GI f/u and probable EGD recent CT abd/pelvis noted lipase wnl cont anti-emetics, H2 brian, PPI, carafate appreciate GI consult (5) DVT prophylaxis: lovenox to 40mg BID updated Laurence, pt's daughter, 02/08 and 02/10 she is a nurse at [employer] phone # - [phone] cont PT/OT if we are successful at weaning the NC O2 to reasonable level we can d/c next fe w days pleased w/ her progress Admission and Anticipated Discharge Date Admission Date: February 03, 2020 Subjective patient's main complaint is that of [place] with walking to bathroom, doing ADLs, etc. no dyspnea at rest. minimal cough. eating decently. no nausea/emesis/diarrhea. no chest pain. feeling good. Review of Systems Constitutional: + fatigue; no fever and no chills Respiratory: + dyspnea and + dyspnea on exertion; no hemoptysis Cardiovascular: no chest pain, no orthopnea, no lightheadedness and no edema Gastrointestinal: no abdominal pain, no nausea and no vomiting Physical Exam Constitutional: well developed and well nourished; no acute distress and no altered mental status ENMT: external ear and nose normal, oropharynx normal Respiratory: no respiratory distress Auscultation: + crackles (bases; fine, dry sounding; IMPROVED today in quantity ); no rhonchi and no wheezes Cardiovascular: Rate/Rhythm: regular rate and regular rhythm Heart Sounds: normal S1 and normal S2; no murmur Vessels: posterior tibial pulses present and dorsalis pedis pulses present; no JVD Extremities: no edema Gastrointestinal (Abdomen): normal bowel sounds, soft, nontender, no hepatosplenomegaly Psychiatric: A+Ox3, euthymic affect Results & Data Results & Data ([facility]) Vital Signs (Past 12 Hours) Vital Signs Temp Pulse Resp BP Pulse Ox 02/11/20 15:31 36.5 C 68 17 123/73 93 Laboratory Results Laboratory Results - last 24 hr 02/11/20 02/11/20 02/11/20 06:01 06:01 06:01 WBC 17.71 H RBC 3.87 L Hgb 12.0 Hct 36.1 L MCV 93.3 MCH 31.0 MCHC 33.2 RDW Std Deviation 46.1 RDW Coeff of Annetta 13.9 Plt Count 301 MPV 10.9 H Absolute Nucleated RBC 0.04 H Nucleated RBC % (auto) 0.2 Sodium 136 Potassium 3.8 Chloride 103 Carbon Dioxide 25 Anion Gap 9.0 BUN 31 H Creatinine 0.93 Est Cr Clr Drug Dosing 52.0 Est GFR ( Amer) 71.7 Est GFR (Non-Af Amer) 61.8 BUN/Creatinine Ratio 33.4 H Glucose 103 H Calcium 9.1 25-OH Vitamin D Total 29.0 L PG Care Time/CCT Total # of Minutes Spent Total Time Spent with Patient: Total time spent is greater than 50% in coordination of care (as documented) at patient's floor/unit and/or counseling patient: Coding Level of Care Code 02106 Subseq Hosp Care Lvl 2 Diagnoses Pneumonia due to COVID-19 virus U07.1; J12.89 Acute respiratory failure with hypoxia J96.01 Abnormal LFTs R94.5 Nausea R11.0 DVT prophylaxis Z29.9
[2020-02-12] MEDS: ENOXAPARIN INJ 40 MG/0.4 ML SYR SQ SCH ×2 (08:37→21:23)
[2020-02-12] MEDS: SUCRALFATE 1 GM TAB PO SCH ×4 (08:37→21:24)
[2020-02-12] MEDS: ADVANCED PROBIOTIC 1250 MG CAPSULE PO SCH (08:37)
[2020-02-12] MEDS: FAMOTIDINE 20 MG TAB PO SCH ×2 (08:37→21:24)
[2020-02-12] MEDS: CHOLECALCIFEROL 1,000 UNITS 25 MCG TAB PO SCH (08:37)
[2020-02-12] MEDS: PANTOprazole 40 MG TAB PO SCH (08:37)
[2020-02-12] MEDS: dexAMETHasone 6 MG in SYRINGE 0 ML IV SCH (08:37)
[2020-02-12] MEDS: ZINC SULFATE 220 MG CAPSULE PO SCH (08:37)
[2020-02-12] MEDS ORDERED: OPTIRAY 320 125ml IV ONE (10:38)
--- NOTE | 2020-02-12 11:08 | CT Scan Report ---
CT ANGIOGRAM OF THE CHEST CLINICAL HISTORY: ARDS. Covid. COMPARISON STUDY: Chest x-ray dated 02/07/2020. TECHNIQUE: Following the IV administration of 120 cc of Optiray 320, CT angiogram of the chest was pe rformed from the upper abdomen to the thoracic inlet utilizing the pulmonary embolus protocol. Images are reviewed in the axial, sagittal, and coronal planes. 3-D MIPS images are created and assessed. I V contrast was administered without complication. A dose lowering technique was utilized adhering to the principles of ALARA. CT DOSE: 451.21 mGycm FINDINGS: Thyroid: Imaged portions of the thyroid gland are normal in size and attenuation. Thoracic aorta: There is atherosclerotic calcification of the thoracic aorta, which is normal in jonas ricardo and demonstrates standard 3-vessel arch anatomy. No dissection is seen. Pulmonary vasculature: The pulmonary trunk is normal in caliber. There are no filling defects identif ied in main, lobar, or segmental pulmonary branches to suggest pulmonary embolus. Heart: The heart is normal in size and without pericardial effusion. Lungs and pleural spaces: There is multifocal groundglass consolidation throughout both lungs. No ple ural effusion is identified. The trachea and central airways are clear. There is a 10 mm focus of irr egular soft tissue nodularity in the left upper lobe seen on image #164. Mediastinum: There are numerous subcentimeter mediastinal lymph nodes. Flores: Prominent hilar nodes measure up to 9 mm short axis. These are likely reactive. Axillae: There is no axillary lymphadenopathy. Upper abdomen: There is a small hiatal hernia. Partially visualized upper abdominal viscera is otherw ise within normal limits. Skeletal structures: The skeletal structures are osteopenic. No lytic or blastic bony lesions are see n. Degenerative change is seen in the shoulders and thoracic spine. IMPRESSION: 1. There is no evidence of pulmonary embolus in the main, lobar, or segmental pulmonary arteries. 2. Multifocal groundglass consolidation is seen throughout both lungs and consistent with reported hi story of a viral pneumonia. Radiographic follow-up to resolution is recommended. 3. No pleural effusion is identified. 4. There is a 10 mm focus of irregular soft tissue nodularity in the left upper lobe. This is patholo gically indeterminant and a 3 month follow-up chest CT is recommended for reassessment. 5. Additional findings as above. ACT 112: Negative or not required by law. Electronically signed by: Justin Boss M.D. 02/12/2020 11:07 AM
[2020-02-12] MEDS ORDERED: SODIUM CHLORIDE 0.9% 500 ML IV SCH (14:45)
[2020-02-12] MEDS: NYSTATIN SUSP 500,000 U/5 ML UDC PO SCH ×3 (16:14→21:24)
--- NOTE | 2020-02-12 23:16 | Hospitalist Progress Note ---
Date of Service February 12, 2020 Assessment & Plan (1) Pneumonia due to COVID-19 virus: IMPROVING nicely. Continue dexamethasone 6 mg IV daily - day #11/16. Completed 5-day course of remdesivir. Received plasma earlier this stay. Cont NC O2 - keep sats 90-94% - wean as tolerated. Zinc sulfate 220 mg p.o. daily x 10 days. Today is day 10. Ventolin prn. Completed 5 days of IV rocephin/doxy to cover for possibility of superimposed bacterial pneumonia. Then completed levaquin po x 2 days. Total 7 days of IV/PO abx. Cont self-proning, flutter valve, incentive martha, pulmonary toilet. CTA chest - NO PE. Nodule seen - repeat CT in 3 months advised by radiology. (2) Acute respiratory failure with hypoxia: 2nd COVID-19 pneumonia and probably mild/moderate ARDS from such. Improving. Wean O2 as tolerated. See above. (3) Abnormal LFTs: likely 2nd to COVID-19 infection Gi consult appreciated nausea resolved cont pepcid and PPI along w/ carafate repeat AST in am (4) Nausea: 2nd to COVID-19 infection can't rule out gastritis/esophagitis/other upper GI pathology either way nausea resolved; tolerating diet after recovery from COVID will need outpatient GI f/u and probable EGD recent CT abd/pelvis noted lipase wnl cont anti-emetics, H2 brian, PPI, carafate appreciate GI consult (5) Pulmonary nodule: [facility] referral post-d/c (6) DVT prophylaxis: lovenox 40mg BID updated Laurence, pt's daughter, 02/08 and 02/10 she is a nurse at [employer] phone # - [phone] d/c to home tomorrow after 2-step? Admission and Anticipated Discharge Date Admission Date: February 03, 2020 Subjective patient overall feeling much better. [place] remains but no dyspnea at rest. no cough. eating "too well." no nausea/emesis/diarrhea. no new complaints. Review of Systems Constitutional: + fatigue and + weakness; no fever, no chills and no anorexia Respiratory: + dyspnea on exertion Cardiovascular: no chest pain and no dyspnea at rest Gastrointestinal: no abdominal pain, no nausea, no vomiting and no diarrhea/loose stools Musculoskeletal: no myalgia and no body aches Physical Exam Constitutional: well developed and well nourished; no acute distress and no altered mental status ENMT: external ear and nose normal, oropharynx normal Respiratory: no respiratory distress Auscultation: + crackles (bases; fine, dry sounding; MARKED improvement from yesterday); no rhonchi and no wheezes Cardiovascular: Rate/Rhythm: regular rate and regular rhythm Heart Sounds: normal S1 and normal S2; no murmur Vessels: posterior tibial pulses present and dorsalis pedis pulses present; no JVD Extremities: no edema Gastrointestinal (Abdomen): normal bowel sounds, soft, nontender, no hepatosplenomegaly Skin: no rashes, warm and dry Psychiatric: A+Ox3, euthymic affect Results & Data Results & Data ([facility]) Vital Signs (Past 12 Hours) Vital Signs Temp Pulse Resp BP Pulse Ox 02/12/20 23:08 36.4 C L 62 16 152/73 H 94 02/12/20 15:51 65 20 93 PG Care Time/CCT Total # of Minutes Spent Total Time Spent with Patient: Total time spent is greater than 50% in coordination of care (as documented) at patient's floor/unit and/or counseling patient: Coding Level of Care Code 26271 Subseq Hosp Care Lvl 2 Diagnoses Pneumonia due to COVID-19 virus U07.1; J12.89 Acute respiratory failure with hypoxia J96.01 Abnormal LFTs R94.5 Nausea R11.0 Pulmonary nodule R91.1 DVT prophylaxis Z29.9
[2020-02-13 07:13] LABS: Hemoglobin 11.7 g/dL (12.0-16.0); Mean Corpuscular Hemoglobin 30.9 pg (25-34); Mean Corpuscular Hgb Conc 32.5 g/dL (32-36); Mean Platelet Volume 10.9 fL (7.4-10.4); Platelet Count 278 K/uL (130-400); RDW Coefficient of Variation 14.5 % (11.5-14.5); RDW Standard Deviation 48.8 fL (36.4-46.3); Red Blood Count 3.79 M/uL (4.2-5.4)
[2020-02-13 07:50] LABS: BUN Creatinine Ratio 32.2 (10-20); Calcium 8.9 mg/dl (8.5-10.1); Creatinine Clr Calc Pharmacy 47.9 ml/min; Est GFR (African American) 64.9
[2020-02-13] MEDS: ADVANCED PROBIOTIC 1250 MG CAPSULE PO SCH (08:18)
[2020-02-13] MEDS: FAMOTIDINE 20 MG TAB PO SCH (08:19)
[2020-02-13] MEDS: NYSTATIN SUSP 500,000 U/5 ML UDC PO SCH ×3 (08:19→16:45)
[2020-02-13] MEDS: SUCRALFATE 1 GM TAB PO SCH ×3 (08:19→16:45)
[2020-02-13] MEDS: CHOLECALCIFEROL 1,000 UNITS 25 MCG TAB PO SCH (08:19)
[2020-02-13] MEDS: PANTOprazole 40 MG TAB PO SCH (08:20)
[2020-02-13] MEDS: ENOXAPARIN INJ 40 MG/0.4 ML SYR SQ SCH (08:20)
[2020-02-13] MEDS: dexAMETHasone 6 MG in SYRINGE 0 ML IV SCH (09:11)
--- NOTE | 2020-02-13 15:03 | Discharge Summary ---
Date of Service date of admission - February 03, 2020 date of discharge - February 13, 2020 Admission HPI Per Admitting Provider The patient is a 69-year-old female with a past medical history including GERD who presented to the emergency department with worsening nausea and inability to hold anything down over a 1-2 week period. Patient had been caring for an elderly friend who recently tested positive for COVID-19 and is actually hospitalized for such. She was exposed to the friend on or slightly before January 19. At time of ER presentation the patient had a COVID-19 test which was positive. Other significant abnormalities include the following: Potassium 3.2, glucose 111, total bilirubin 1.1, AST 76, albumin 3.3 Chest x-ray showed bilateral lower lobe infiltrates. Pulse ox on room air was as low as 87%, and improved to 94% on 2 L nasal cannula oxygen. Principal Diagnosis acute hypoxic respiratory failure 2nd to COVID-19 pneumonia Discharge Exam Constitutional well developed and well nourished; no acute distress and no altered mental status ENMT external ear and nose normal, oropharynx normal Respiratory no respiratory distress Auscultation: + crackles (bases; fine, dry sounding; MARKED improvement from prior exams ); no rhonchi and no wheezes Cardiovascular Rate/Rhythm: regular rate and regular rhythm Heart Sounds: normal S1 and normal S2; no murmur Vessels: posterior tibial pulses present and dorsalis pedis pulses present; no JVD Extremities: no edema Gastrointestinal (Abdomen) normal bowel sounds, soft, nontender, no hepatosplenomegaly Skin no rashes, warm and dry Psychiatric A+Ox3, euthymic affect Discharge Data Allergies Allergy/AdvReac Type Severity Reaction Status Date / Time No Known Allergies Allergy Verified 02/03/20 19:51 Consultations [facility] PT, OT Procedures Performed Convalescent Plasma x 1 unit 2-step ambulatory oxygen test - * 2 liters NC O2 at rest/sleep * 5 liters NC O2 with ambulation/activity Ordered Studies 02/04/20 05:27 CT abd pelvis wo con Urgent IMPRESSION: 1. No bowel wall thickening or obstruction. 2. Moderate bibasilar patchy airspace opacities consistent with a viral pneumonia. 3. Hepatic steatosis. 4. Colonic diverticulosis. No evidence for acute diverticulitis. 02/12/20 10:46 CT angio chest PE protocol Routine IMPRESSION: 1. There is no evidence of pulmonary embolus in the main, lobar, or segmental pulmonary arteries. 2. Multifocal groundglass consolidation is seen throughout both lungs and consistent with reported history of a viral pneumonia. Radiographic follow-up to resolution is recommended. 3. No pleural effusion is identified. 4. There is a 10 mm focus of irregular soft tissue nodularity in the left upper lobe. This is pathologically indeterminant and a 3 month follow-up chest CT is recommended for reassessment. Hospital Course (1) Pneumonia due to COVID-19 virus: Patient's COVID-19 pneumonia was treated with IV dexamethasone, remdesivir, and convalescent plasma. Received in total 7 days of dexamethasone while hospitalized and will complete 3 more days of such at home to complete 10-day course. Completed 5-day course of remdesivir during her stay. Convalescent plasma transfused on 02/05/20 without incident. Required oxygen her entire stay. 2-step ambulatory oxygen test demonstrated need for 2 liters of NC O2 at rest and 5 liters of NC O2 with ambulation. She had mild dyspnea on exertion at time of discharge. In addition to the above she completed 5 days of IV rocephin/doxycycline to cover for the possibility of a superimposed bacterial pneumonia. This was followed by 2 days of oral levaquin. CTA chest did NOT show evidence of pulmonary embolus. In light of the severity of her illness and need for NC O2 after discharge I recommended follow-up with [facility] within 2-3 weeks post-discharge to ensure ongoing recovery and improvement. (2) Acute respiratory failure with hypoxia: 2nd COVID-19 pneumonia and probably mild/moderate ARDS from such. See above in "pneumonia due to COVID-19 virus." (3) Abnormal LFTs: Likely 2nd to COVID-19 infection. [facility] was consulted due to abnormal LFTs and refractory nausea. GI felt her abnormal LFTs were due to the COVID-19 infection itself. Her nausea resolved with use of H2 brian, Carafate, PPI, and anti-emetics. Abnormal LFTs resolved prior to discharge. (4) Nausea: Likely 2nd to COVID-19 infection as some individuals have very prominent GI symptoms in the first half of their COVID illness. Could not rule out gastritis/esophagitis/other upper GI pathology. Nausea improved/resolved with H2 brian, PPI, carafate, and anti-emetics. Diet ultimately restarted and advanced. She was eating/drinking well and kept everything down prior to discharge. After recovery from COVID will need outpatient GI f/u and probable EGD. At discharge she will take a short course of carafate, remain on PPI twice daily, and take zofran prn. (5) Pulmonary nodule: [facility] Pulmonary referral post-d/c to follow this 1cm nodule in the left upper lobe. (6) DVT prophylaxis: Received lovenox 40mg BID during her stay. Total Time Total Time Spent Total Time Spent (In Minutes): 40 Total Time Includes: Examination of the Patient, Discharge Planning and Medication Reconciliation Discharge Plan Discharge Items Patient Disposition: Home - Self-Care Reason For Visit: COVID-19 Pneumonia; Severe NAUSEA Discharge Diagnosis: 1. Severe nausea due to COVID-19 infection - resolved 2. Severe COVID-19 pneumonia - resolving 3. Abnormal liver function tests - resolved; this was due to COVID-19 infection 4. Left upper lobe pulmonary nodule - follow-up CT scan needed in about 3 months Activity: As commented below Activity Comment: gradually increase activities as tolerated over the next 7-10 days Driving/Machine Use: Resume 3 days after discharge Non-emergency contact: Primary Care Provider, [employer] Call non-emergency contact if: you have any medication questions, your symptoms worsen and you have a fever Follow-up/Referrals: Talha Dahl MD [Physician] - (1 week - COVID-19 infection requiring oxygen, severe pneumonitis, going home on oxygen. DR DAHL'S OFFICE WILL CALL PT WITH F/U APPT) Alexandro Moeller MD [Physician] - 02/20/20 9:20 am (2 weeks - chronic nausea/GI upset; need for probable EGD) Martinez Jaquez [Primary Care Provider] - 02/19/20 1:45 pm (virtual visit/telehealth visit with PCP - 5 days please) Diet: Regular Addtl Attending Provider Instructions: You were admitted to the hospital because of severe nausea, dehydration and newly diagnosed COVID-19 infection. The nausea was due to the COVID illness itself. Your xrays of the lungs showed significant COVID pneumonia. You developed fever shortly after admission and your respiratory symptoms/pneumonia worsened. We treated your infection with steroids, antibiotics, plasma, and remdesivir. You made nice, gradual improvement over time. Your steroid and antibiotic courses are complete. A CT scan of the lungs did not show any blood clots. It showed pneumonia from the COVID in both lungs. On day of discharge we determined that you need 2 liters of oxygen at rest/sleep and 5 liters with walking/activity. Hopefully the oxygen is short-term (a few weeks). It is difficult to know the exact date that your illness started but I suspect you are about 17-18 days into your illness, perhaps longer. To err on the side of caution I would recommend that you ISOLATE yourself in your home for 2 more days. Avoid contact with your over the next 2 days; use a separate bathroom from your . On Tuesday morning you can discontinue isolation! At that point you are very unlikely to be contagious to others. Meds called to your pharmacy - 1. pantoprazole - INCREASE to twice daily dosing for your stomach. 2. ondansetron tablets - 4mg every 6 hours as needed for nausea/vomiting. 3. nystatin solution - 5cc 4 times a day for 7 days - swish/spit. 4. albuterol via spacer device - 2 puffs every 4 hours as needed for cough/wheeze/shortness of breath. 5. take [id number] vitamin D supplement 2000 IU every day; would do this indefinitely. Other recommendations - 1. for the next 1-2 weeks continue to prone (lie on your belly) several times each day. This will help your lungs heal faster. 2. continue your incentive spirometry and flutter valve - do several times daily. 3. mucinex [id number] for any cough/congestion. 4. plenty of fluids to avoid dehydration. 5. follow-up appointments - see separate section. 6. strongly consider the COVID-19 vaccine later in the winter/spring when it is available. 7. continue to mask when you finish your isolation period and leave your home; but, for the next few months, really try to limit outside exposure to avoid other viruses. Return to [facility] if - * you have recurrent fevers over 100 degrees * you have worsening shortness of breath * you have worsening cough * you have to increase the oxygen on your oxygen tank to relieve any respiratory symptoms * any other concerns It was my pleasure to care for you! Continue to feel better! Best wishes, Dr Pfeiffer Pending Studies at Discharge: No Stand-Alone Forms: My [facility] Medications and DC Order Prescriptions: New albuterol sulfate [Ventolin HFA] 90 mcg/actuation Hfa Aerosol Inhaler 2 puff inhalation Q4 PRN (Reason: shortness of breath/cough/wheezing) Qty: 1 RF: 0 cholecalciferol (vitamin D3) 25 mcg (1,000 unit) Capsule 2,000 unit PO QAM Qty: 60 RF: 0 (DME) Aerochamber MV Spacer See Rx Instructions .ROUTE .MEDSUPPLY Qty: 1 RF: 0 ondansetron 4 mg tablet,disintegrating 4 mg PO Q6H PRN (Reason: nausea and vomiting) Qty: 10 RF: 0 (DME) Oxygen Home Liters Per Minute 1 ea .Route .continuous Qty: 1 RF: 0 pantoprazole 40 mg tablet,delayed release (DR/EC) 40 mg PO BID Qty: 60 RF: 1 Continued sucralfate 1 gram tablet 1 g PO ACHS RF: 0 Discharge Orders: Discharge Order (Routine); Ordered 02/13/20 Ordered By: Lele Rothman/Other Patient Handouts: 2019-nCoV, COVID-19 Home Care, Caring for Someone Who Has COVID-19, Disinfecting Your Home of COVID-19 Admission Data Admit Date/Time: 02/03/20 20:52 Attending Provider: Lele Pfeiffer Admit Provider: Aashish Zarco Primary Care Provider: Martinez Jaquez Other Interventions: Discharge Summary Assessment (RN) Last Done: 02/13/20 15:36 Coding Level of Care Code D/C Day Management >30 mins Diagnoses Pneumonia due to COVID-19 virus U07.1; J12.89 Acute respiratory failure with hypoxia J96.01 Abnormal LFTs R94.5 Nausea R11.0 Pulmonary nodule R91.1 DVT prophylaxis Z29.9
== END 2020-02-13 18:04 | disposition home or self-care (01) | DRG 177 ==
LOC: ED 18:37 → 3E 20:52 → SUATTDRO 20:52 → 3E 02-04 00:31
DX: U07.1 COVID-19; Z79.899 Other long term (current) drug therapy; E86.0 Dehydration; R11.0 Nausea; J96.01 Acute respiratory failure with hypoxia; J12.89 Other viral pneumonia

== ENCOUNTER 2021-04-11 22:20 | Observation (INO) ==
--- NOTE | 2021-04-11 22:39 | Emergency Department Note ---
History of Present Illness General Chief complaint: Respiratory Problems Stated complaint: OXYGEN IS LOW WHEN WALKING,REF BY SAMINA Time Seen by Provider: 04/11/21 22:28 History of Present Illness This is a 70-year-old female that presents to the emergency department via private vehicle accompanied by with complaints of "shortness of breath, oxygen requirement". The patient notes that over the past 3 weeks she has been experiencing increasing shortness of breath. This is worse particularly with e xertion. She normally utilizes 2 L of oxygen at night only. She states that she is status post Covid as well as lung cancer with lobectomy. This was in the fall 2020. She denies any recent fevers, chills, nausea, vomiting. She does note some intermittent chest pressure over the past week. She is unsure if this is with exertion or not. She denies any history of CA or PE. No leg pain or swelling. No anticoagulant use. Patient notes that she had outpatient laboratory studies performed and was notified this evening of an elevated D- dimer and was recommended to come here for further evaluation and management. No chest pressure at the present time. Home Medications Medication Instructions Recorded Confirmed Type Oxygen Home #1 ea 02/13/20 12/26/20 Rx inhalational spacing device #1 ea 02/13/20 12/26/20 Rx (Aerochamber MV) rosuvastatin 5 mg tablet (Crestor) 5 mg PO 3XWK 02/28/20 04/11/21 History cetirizine 10 mg tablet (Zyrtec) 10 mg PO HS PRN 05/13/20 04/11/21 History pantoprazole 40 mg tablet,delayed 40 mg PO HS 05/13/20 04/11/21 History release (Protonix) cholecalciferol (vitamin D3) 125 125 mcg PO 4XWK 09/04/20 04/11/21 History mcg (5,000 unit) tablet (Vitamin D3) Allergies Allergy/AdvReac Type Severity Reaction Status Date / Time No Known Allergies Allergy Verified 04/11/21 23:30 Past Med/Surg History Medical History Chronic hypoxemic respiratory failure GERD (gastroesophageal reflux disease) Mild High cholesterol History of COVID-19 Dx 02/2020 > symptoms at time: severe nausea and hypoxia, treated at [facility] > symptoms improved but residual need for home oxygen supplementation Hypoxia Lung cancer Stage IIIa non-small cell lung cancer s/p left upper lobectomy, plan for starting chemo 11/27 On home oxygen therapy 2L O2 HS + PRN via n/c Schatzki's ring Found during 05/2020 EGD, unable to dilate at time Surgical History History of anesthesia reaction Per anesthesia progress note (05/19/20; [facility]): "during egd patient desaturated to 60%, but recovered on her own. It was decided to not attempt the colonoscopy because of the fragile nature of the pt lungs" > Pt subsequently had endobronchial ultrasound guided biopsy under general anesthesia at [facility] with no noted anesthesia complications History of bilateral tubal ligation History of biopsy Endobronchial ultrasound guided biopsy (09/12/20): LMA #4 igel at [facility] History of esophagogastroduodenoscopy (EGD) History of lobectomy of lung MAGDALENE Port-A-Cath in place (12/04/20) Insertion of Access Port with Fluoroscopy Dr. Chong 12/04/2020 Family History Mother FHx: pancreatic cancer Aunt FHx: colon cancer Other No family history of adverse response to anesthesia Social History Smoking Status: Former smoker packs per day: 1.5; Years Smoked: 25; Number of Years Since Quit: 27; Second Hand Exposure: Yes (hx); Hx Alcohol Use: No Hx Substance Use: No Preferred Language: Romansh Communication Ability: Effective Bad Cloth Checker Required: No Beliefs That Will Affect Care: None marital status: Current Living Situation: Spouse current occupational status: retired How many Children do You have: 3 Feels Safe at Home: Yes Assistive Devices: Glasses and Oxygen - at Night Review of Systems A total of 10 systems reviewed and were otherwise negative Physical Exam Vital Signs Vital Signs - 24 hr 04/11/21 22:22 04/11/21 22:52 04/11/21 23:03 Temperature 36.3 C L Temperature Source Temporal Artery Scan Pulse Rate 96 H 76 Pulse Rate from SpO2 Sensor 76 Respiratory Rate 20 18 Respiratory Effort / Characteristics Respiratory Depth Respiratory Pattern Blood Pressure 161/95 H 123/85 Blood Pressure Mean 117 97 Pulse Oximetry 94 96 95 Oxygen Delivery Method Nasal Cannula Room Air Room Air Oxygen Flow Rate 3 Sepsis Recent Fever Within 48 Hours No Sepsis New/Unexplained Change in Mental Status N/A Sepsis Action Taken by Nursing No Action Required 04/11/21 23:40 04/12/21 00:11 04/12/21 01:03 Temperature Temperature Source Pulse Rate 90 74 Pulse Rate from SpO2 Sensor 89 Respiratory Rate 24 Respiratory Effort / Characteristics Non-Labored SOB on Exertion Respiratory Depth Normal Respiratory Pattern Regular Blood Pressure 172/88 H 158/90 H Blood Pressure Mean 116 112 Pulse Oximetry 100 96 Oxygen Delivery Method Room Air Nasal Cannula Nasal Cannula Oxygen Flow Rate 2 2 Sepsis Recent Fever Within 48 Hours Sepsis New/Unexplained Change in Mental Status Sepsis Action Taken by Nursing 04/12/21 02:00 Temperature Temperature Source Pulse Rate 89 Pulse Rate from SpO2 Sensor 89 Respiratory Rate 18 Respiratory Effort / Characteristics Respiratory Depth Respiratory Pattern Blood Pressure 149/101 H Blood Pressure Mean 117 Pulse Oximetry 98 Oxygen Delivery Method Nasal Cannula Oxygen Flow Rate 2 Sepsis Recent Fever Within 48 Hours Sepsis New/Unexplained Change in Mental Status Sepsis Action Taken by Nursing VITAL SIGNS - Vital signs and nursing notes were reviewed. Stable and afebrile. Patient on 3 L nasal cannula. GENERAL - 70-year-old female appearing her stated age who is in no acute distress. Communicates well with provider and answers questions appropriately. SKIN - Without rashes. HEAD - NC/AT. EYES - Sclera anicteric. NECK - Neck with FROM. No nuchal rigidity. LUNGS - Chest wall symmetric without accessory muscle use, intercostals retractions, or central cyanosis. Normal vesicular breath sounds CTA B/L. No wheezes, rales, or rhonchi appreciated. CARDIAC - RRR with S1/S2. No murmur, rubs, or gallops appreciated. ABDOMEN - Abdominal contour normal without pulsations or visible masses. BS normoactive all four quadrants. No tenderness, palpable masses, hepatosplenomegaly, or ascites noted. EXTREMITIES - No clubbing or peripheral cyanosis. +5/5 strength noted in UE/LE bilaterally. NEUROLOGIC - Cranial nerves II through XII grossly intact. Sensory intact to light touch throughout. PSYCH - A&O, and cooperates fully with examiner. Pt is very pleasant and interacts well with examiner. Course Administered Medications Discontinued Medications Ioversol (Optiray 320 125ml) 119 ml IV ONCE ONE Stop: 04/12/21 00:04 Last Admin: 04/12/21 00:03 Dose: 119 ml Documented by: [id number] Medical Decision Making Laboratory Data Result diagrams: 04/11/21 23:04 04/11/21 23:04 Lab Results 04/11/21 04/11/21 04/11/21 Range/Units 23:04 23:04 23:04 WBC 6.60 (4.8-10.8) K/uL RBC 3.27 L (4.2-5.4) M/uL Hgb 10.7 L (12.0-16.0) g/dL Hct 31.1 L (37-47) % MCV 95.1 (80-100) fL MCH 32.7 (25-34) pg MCHC 34.4 (32-36) g/dL RDW Std Deviation 46.9 H (36.4-46.3) fL RDW Coeff of Annetta 13.4 (11.5-14.5) % Plt Count 217 (130-400) K/uL MPV 9.5 (7.4-10.4) fL Immature Gran % (Auto) 0.2 % Neut % (Auto) 55.9 % Lymph % (Auto) 24.2 % [place] % (Auto) 15.5 % Eos % (Auto) 3.6 % Baso % (Auto) 0.6 % Neut # (Auto) 3.69 (1.4-6.5) K/uL Lymph # (Auto) 1.60 (1.2-3.4) K/uL [place] # (Auto) 1.02 H (0.11-0.59) K/uL Eos # (Auto) 0.24 (0-0.5) K/uL Baso # (Auto) 0.04 (0-0.2) K/uL Immature Gran # (Auto) 0.01 (0.00-0.02) K/uL PT 10.6 (9.0-12.0) Seconds INR 1.0 (0.9-1.1) APTT 23.8 (21.0-31.0) Seconds PTT Ratio 0.9 Sodium 131 L (136-145) mmol/L Potassium 4.0 (3.5-5.1) mmol/L Chloride 98 (98-107) mmol/L Carbon Dioxide 24 (21-32) mmol/L Anion Gap 9 (3-11) BUN 23 (6-23) mg/dl Creatinine 1.19 (0.6-1.2) mg/dl Est Cr Clr Drug Dosing 35.3 ml/min Est GFR ( Amer) 52.8 ml/min Est GFR (Non-Af Amer) 45.6 ml/min BUN/Creatinine Ratio 19.3 (10-20) Glucose 109 H (70-99(Fasting)) mg/dl Calcium 9.0 (8.5-10.1) mg/dl Magnesium 1.8 (1.7-2.4) mg/dl Total Bilirubin 0.5 (0.2-1.0) mg/dl AST 22 (13-39) U/L ALT 14 (7-52) U/L Alkaline Phosphatase 90 (34-104) U/L Troponin I < 0.03 (0-0.04) ng/ml Total Protein 7.9 (6.0-8.3) gm/dl Albumin 4.5 (3.4-5.0) gm/dl Globulin 3.4 (2.5-4.0) gm/dl Albumin/Globulin Ratio 1.3 (0.9-2) SARS-CoV-2, RNA, NAAT (NEGATIVE) 04/12/21 Range/Units 01:45 WBC (4.8-10.8) K/uL RBC (4.2-5.4) M/uL Hgb (12.0-16.0) g/dL Hct (37-47) % MCV (80-100) fL MCH (25-34) pg MCHC (32-36) g/dL RDW Std Deviation (36.4-46.3) fL RDW Coeff of Annetta (11.5-14.5) % Plt Count (130-400) K/uL MPV (7.4-10.4) fL Immature Gran % (Auto) % Neut % (Auto) % Lymph % (Auto) % [place] % (Auto) % Eos % (Auto) % Baso % (Auto) % Neut # (Auto) (1.4-6.5) K/uL Lymph # (Auto) (1.2-3.4) K/uL [place] # (Auto) (0.11-0.59) K/uL Eos # (Auto) (0-0.5) K/uL Baso # (Auto) (0-0.2) K/uL Immature Gran # (Auto) (0.00-0.02) K/uL PT (9.0-12.0) Seconds INR (0.9-1.1) APTT (21.0-31.0) Seconds PTT Ratio Sodium (136-145) mmol/L Potassium (3.5-5.1) mmol/L Chloride (98-107) mmol/L Carbon Dioxide (21-32) mmol/L Anion Gap (3-11) BUN (6-23) mg/dl Creatinine (0.6-1.2) mg/dl Est Cr Clr Drug Dosing ml/min Est GFR ( Amer) ml/min Est GFR (Non-Af Amer) ml/min BUN/Creatinine Ratio (10-20) Glucose (70-99(Fasting)) mg/dl Calcium (8.5-10.1) mg/dl Magnesium (1.7-2.4) mg/dl Total Bilirubin (0.2-1.0) mg/dl AST (13-39) U/L ALT (7-52) U/L Alkaline Phosphatase (34-104) U/L Troponin I (0-0.04) ng/ml Total Protein (6.0-8.3) gm/dl Albumin (3.4-5.0) gm/dl Globulin (2.5-4.0) gm/dl Albumin/Globulin Ratio (0.9-2) SARS-CoV-2, RNA, NAAT NEGATIVE (NEGATIVE) Imaging Data Radiologist's Impression: CTA CHEST: CT chest without contrast 09/12/2020 No acute pulmonary embolism visualized. No focal consolidation, pleural effusion or pneumothorax. Status post left upper lobectomy. Splenomegaly. Radiologist: Sharlene Moran M.D. Study ready at 00:25 and initial results transmitted at 01:00 US VENOUS BILATERAL LOWER EXTREMITIES: No evidence of deep venous thrombosis. Radiologist: Sharlene Moran M.D. Study ready at 01:06 and initial results transmitted at 01:26 MDM Narrative Patient was seen and evaluated as above in room A04. Review was performed of nursing notes and vital signs. I did review pertinent previous visits and patient history. After obtaining a thorough history and physical examination the above work up was performed. As to us today referred by specialist for evalu ation of elevated D-dimer in the setting of dyspnea and increasing oxygenation requirements. The patient does note that she over the past few weeks has had increased dyspnea on exertion as well as over the past week chest pressure. She denies any recent cardiac evaluations. Patient denies any chest pain at the present time. Options of care were discussed with the patient. IV access was established. Labs were drawn. There is no leukocytosis. There is anemia noted with hemoglobin of 10.7. No emergent metabolic disturbance. Mild hyponatremia at 131. Glucose 109. Troponin x1 -. Covid testing negative. Given the patient's elevated D-dimer that was performed in the outpatient setting proceeding with CTA of the chest and lower extremity Dopplers was felt to be reasonable. Results as above per stat rad. I reviewed these with the patient. The patient does note increasing dyspnea on exertion over the past few weeks with associated chest pressure. Patient denies any recent cardiac evaluations for this. Benefit versus risk of inpatient management versus outpatient management d iscussed. Through shared decision making we will proceed with inpatient management for further evaluation of her increasing dyspnea on exertion, increased oxygenation requirements, as well as her chest pressure. Case discussed with the attending physician as well as the hospitalist. Please refer to further documentation regarding her stay. I attest that I have personally reviewed the patient medication list. EKG reveals normal sinus rhythm at a rate of [address] elevation. QTc 435. QRS 82. GCS: 15 In the evaluation and treatment of this patient, the following differential diagnoses were considered: CA, ASC, Dysrhythmia, Angina, Mediastinitis, GERD, Esophagitis, PE, Pneumonia, Bronchitis, Costochondritis, Rib Fracture, among others. Impression & Plan LNOD[place] (dyspnea on exertion), Chest pressure Discharge Plan Visit Data Chief Complaint: Respiratory Problems Stated Complaint: OXYGEN IS LOW WHEN WALKING,REF BY SAMINA ED Provider: Kun Sandy ED Midlevel Provider: Mehdi Noguera Discharge Problem: [place] (dyspnea on exertion), Chest pressure Patient Disposition: Admitted As Inpatient Discharge Instructions Interventions: ED Discharge Assessment Last Done: 04/12/21 04:08
[2021-04-11 23:24] LABS: Partial Thromboplastin Ratio 0.9; Partial Thromboplastin Time 23.8 Seconds (21.0-31.0); Prothrombin Time 10.6 Seconds (9.0-12.0)
[2021-04-11 23:25] LABS: Basophils # (auto) 0.04 K/uL (0-0.2); Basophils % (auto) 0.6 %; Eosinophils # (auto) 0.24 K/uL (0-0.5); Eosinophils % (auto) 3.6 %; Hematocrit (blood only) 31.1 % (37-47); Hemoglobin 10.7 g/dL (12.0-16.0); Immature Granulocytes # (auto) 0.01 K/uL (0.00-0.02); Immature Granulocytes % (auto) 0.2 %; Lymphocytes % (auto) 24.2 %; Mean Corpuscular Hemoglobin 32.7 pg (25-34); Mean Corpuscular Hgb Conc 34.4 g/dL (32-36); Mean Corpuscular Volume 95.1 fL (80-100); Mean Platelet Volume 9.5 fL (7.4-10.4); Monocytes # (auto) 1.02 K/uL (0.11-0.59); Monocytes % (auto) 15.5 %; Neutrophils # (auto) 3.69 K/uL (1.4-6.5); Neutrophils % (auto) 55.9 %; Platelet Count 217 K/uL (130-400); RDW Coefficient of Variation 13.4 % (11.5-14.5); RDW Standard Deviation 46.9 fL (36.4-46.3); Red Blood Count 3.27 M/uL (4.2-5.4)
[2021-04-11 23:35] LABS: Troponin I < 0.03 ng/ml (0-0.04)
[2021-04-11 23:36] LABS: Alanine Aminotransferase 14 U/L (7-52); Albumin Globulin Ratio 1.3 (0.9-2); Albumin Level 4.5 gm/dl (3.4-5.0); Alkaline Phosphatase 90 U/L (34-104); Anion Gap 9 (3-11); Aspartate Aminotransferase 22 U/L (13-39); BUN Creatinine Ratio 19.3 (10-20); Bilirubin,Total 0.5 mg/dl (0.2-1.0); Blood Urea Nitrogen 23 mg/dl (6-23); Carbon Dioxide 24 mmol/L (21-32); Chloride 98 mmol/L (98-107); Creatinine Clr Calc Pharmacy 35.3 ml/min; Est GFR (African American) 52.8 ml/min; Est GFR (Non-African American) 45.6 ml/min; Globulin 3.4 gm/dl (2.5-4.0); Glucose 109 mg/dl (70-99(Fasting)); Magnesium 1.8 mg/dl (1.7-2.4); Sodium 131 mmol/L (136-145); Total Protein 7.9 gm/dl (6.0-8.3)
[2021-04-12] MEDS ORDERED: OPTIRAY 320 125ml IV ONE (00:03)
--- NOTE | 2021-04-12 02:17 | History & Physical Report ---
Date of Service April 12, 2021 Assessment & Plan (1) Chest pain: Plan: Chest pain and pressure with exertional activity/acute on chronic respiratory failure with hypoxia- The patient will be admitted to telemetry for serial cardiac enzymes, serial EKG's, cardiac rhythm monitoring and a 2-D echocardiogram with Dopplers. Patient with increased oxygen requirement, typically requiring 2 L intermittently at nighttime, now requiring that for daytime physical activity No signs of CHF on examination May be an element of COPD exacerbation with history of oxygen requirement nighttime, and history of tobacco abuse DuoNebs every 2 hours as needed (2) Hypoxia: Plan: See above (3) Acute and chronic respiratory failure with hypoxia: Plan: See above (4) History of tobacco abuse: Plan: Cessation counseling (5) GERD (gastroesophageal reflux disease): Plan: Continue pantoprazole (6) High cholesterol: Plan: Continue rosuvastatin History of Present Illness Chief Complaint: The patient presents to the emergency department after being referred by pulmonology for elevated D-dimer, and with exertional chest pressure and hypoxia Primary Care Provider: Martinez Jaquez The patient is a 70-year-old female with a past medical history including chronic hypoxemic respiratory failure, tobacco abuse, GERD, left upper lobe lobectomy and Port-A-Cath in place in left upper chest wall. She presents to the emergency department after being referred by her pen and pencil repairer to done an outpatient D-dimer test that reportedly was elevated. She underwent CT angiography of the chest which was negative for PE or infection. She also underwent venous Dopplers which were negative bilaterally for DVT She was referred for admission due to exertional dyspnea and hypoxia with a short walk to the bathroom. She does use oxygen at at bedtime only at home Allergies Allergy/AdvReac Type Severity Reaction Status Date / Time No Known Allergies Allergy Verified 04/11/21 23:30 Home Medications Medication Instructions Recorded Confirmed Type Oxygen Home #1 ea 02/13/20 12/26/20 Rx inhalational spacing device #1 ea 02/13/20 12/26/20 Rx (Aerochamber MV) rosuvastatin 5 mg tablet (Crestor) 5 mg PO 3XWK 02/28/20 04/11/21 History cetirizine 10 mg tablet (Zyrtec) 10 mg PO HS PRN 05/13/20 04/11/21 History pantoprazole 40 mg tablet,delayed 40 mg PO HS 05/13/20 04/11/21 History release (Protonix) cholecalciferol (vitamin D3) 125 125 mcg PO 4XWK 09/04/20 04/11/21 History mcg (5,000 unit) tablet (Vitamin D3) Past Med/Surg History Medical History (Updated 04/12/21 @ 03:37 by Aashish Zarco MD) Chronic hypoxemic respiratory failure GERD (gastroesophageal reflux disease) Mild High cholesterol History of COVID-19 Dx 02/2020 > symptoms at time: severe nausea and hypoxia, treated at [facility] > symptoms improved but residual need for home oxygen supplementation Hypoxia Lung cancer Stage IIIa non-small cell lung cancer s/p left upper lobectomy, plan for starting chemo 11/27 On home oxygen therapy 2L O2 HS + PRN via n/c Schatzki's ring Found during 05/2020 EGD, unable to dilate at time Surgical History History of anesthesia reaction Per anesthesia progress note (05/19/20; [facility]): "during egd patient desaturated to 60%, but recovered on her own. It was decided to not attempt the colonoscopy because of the fragile nature of the pt lungs" > Pt subsequently had endobronchial ultrasound guided biopsy under general anesthesia at [facility] with no noted anesthesia complications History of bilateral tubal ligation History of biopsy Endobronchial ultrasound guided biopsy (09/12/20): LMA #4 igel at [facility] History of esophagogastroduodenoscopy (EGD) History of lobectomy of lung MAGDALENE Port-A-Cath in place (12/04/20) Insertion of Access Port with Fluoroscopy Dr. Chong 12/04/2020 Family History Mother FHx: pancreatic cancer Aunt FHx: colon cancer Other No family history of adverse response to anesthesia Social History Smoking Status: Former smoker packs per day: 1.5; Years Smoked: 25; Number of Years Since Quit: 27; Second Hand Exposure: Yes (hx); Hx Alcohol Use: No Hx Substance Use: No Preferred Language: Mohawk Communication Ability: Effective Circular Knitter Required: No Beliefs That Will Affect Care: None marital status: Current Living Situation: Spouse current occupational status: retired How many Children do You have: 3 Feels Safe at Home: Yes Assistive Devices: Glasses and Oxygen - at Night Review of Systems Review of Systems: The patient denies chest pain, palpitations, lower extremity swelling, sore throat, fevers, chills, sweats, nausea, vomiting, diarrhea , constipation, abdominal pain, pelvic pain, blood in urine or stool, dysuria, urinary frequency or urgency, lightheadedness, dizziness, headache, memory loss, loss of consciousness, rash, abnormal bruising or bleeding, imbalance, focal or generalized weakness, numbness or tingling in arms or legs, generalized arthralgias or myalgias, back or neck pain, or night sweats. The review of systems is otherwise negative other than for that already noted above, and at least 10 systems have been reviewed. Physical Exam Physical Exam: The patient is awake, alert and oriented 3, well developed and well nourished, normocephalic and atraumatic, lying in bed and in no acute distress. HEENT--PERRL, EOMI, mucous membranes and oropharynx normal Neck--supple. No JVD. No bruits. Thyroid normal, trachea midline, no adenopathy. Heart--normal S1 and S2. No murmurs, rubs or gallops. Lungs--a few scattered wheezes. No respiratory distress, no accessory muscle use. Abdomen--normal bowel sounds and soft. Nontender. Nondistended, no hernias or masses, no organomegaly. Extremities--no cyanosis or clubbing. No edema. Dermatologic--normal skin turgor, normal color, no abnormal lymph nodes, no rash. Neurologic--cranial nerves II through XII grossly intact. Rheumatologic--normal range of motion. Psychiatric--normal affect. Results & Data Results & Data ([facility]) Vital Signs (Past 12 Hours) Vital Signs Temp Pulse Resp BP Pulse Ox 04/12/21 00:11 90 24 172/88 H 100 04/11/21 23:03 76 18 123/85 95 04/11/21 22:52 96 04/11/21 22:22 36.3 C L 96 H 20 161/95 H 94 Laboratory Results Laboratory Results WBC 6.60 K/uL (4.8-10.8) 04/11/21 23:04 RBC 3.27 M/uL (4.2-5.4) L 04/11/21 23:04 Hgb 10.7 g/dL (12.0-16.0) L 04/11/21 23:04 Hct 31.1 % (37-47) L 04/11/21 23:04 MCV 95.1 fL (80-100) 04/11/21 23:04 MCH 32.7 pg (25-34) 04/11/21 23:04 MCHC 34.4 g/dL (32-36) 04/11/21 23:04 RDW Std Deviation 46.9 fL (36.4-46.3) H 04/11/21 23:04 RDW Coeff of Annetta 13.4 % (11.5-14.5) 04/11/21 23:04 Plt Count 217 K/uL (130-400) 04/11/21 23:04 MPV 9.5 fL (7.4-10.4) 04/11/21 23:04 Immature Gran % (Auto) 0.2 % 04/11/21 23:04 Neut % (Auto) 55.9 % 04/11/21 23:04 Lymph % (Auto) 24.2 % 04/11/21 23:04 Callahan % (Auto) 15.5 % 04/11/21 23:04 Eos % (Auto) 3.6 % 04/11/21 23:04 Baso % (Auto) 0.6 % 04/11/21 23:04 Neut # (Auto) 3.69 K/uL (1.4-6.5) 04/11/21 23:04 Lymph # (Auto) 1.60 K/uL (1.2-3.4) 04/11/21 23:04 Callahan # (Auto) 1.02 K/uL (0.11-0.59) H 04/11/21 23:04 Eos # (Auto) 0.24 K/uL (0-0.5) 04/11/21 23:04 Baso # (Auto) 0.04 K/uL (0-0.2) 04/11/21 23:04 Immature Gran # (Auto) 0.01 K/uL (0.00-0.02) 04/11/21 23:04 PT 10.6 Seconds (9.0-12.0) 04/11/21 23:04 INR 1.0 (0.9-1.1) 04/11/21 23:04 APTT 23.8 Seconds (21.0-31.0) 04/11/21 23:04 PTT Ratio 0.9 04/11/21 23:04 Sodium 131 mmol/L (136-145) L 04/11/21 23:04 Potassium 4.0 mmol/L (3.5-5.1) 04/11/21 23:04 Chloride 98 mmol/L (98-107) 04/11/21 23:04 Carbon Dioxide 24 mmol/L (21-32) 04/11/21 23:04 Anion Gap 9 (3-11) 04/11/21 23:04 BUN 23 mg/dl (6-23) 04/11/21 23:04 Creatinine 1.19 mg/dl (0.6-1.2) 04/11/21 23:04 Est Cr Clr Drug Dosing 35.3 ml/min 04/11/21 23:04 Est GFR ( Amer) 52.8 ml/min 04/11/21 23:04 Est GFR (Non-Af Amer) 45.6 ml/min 04/11/21 23:04 BUN/Creatinine Ratio 19.3 (10-20) 04/11/21 23:04 Glucose 109 mg/dl (70-99(Fasting)) H 04/11/21 23:04 Calcium 9.0 mg/dl (8.5-10.1) 04/11/21 23:04 Magnesium 1.8 mg/dl (1.7-2.4) 04/11/21 23:04 Total Bilirubin 0.5 mg/dl (0.2-1.0) 04/11/21 23:04 AST 22 U/L (13-39) 04/11/21 23:04 ALT 14 U/L (7-52) 04/11/21 23:04 Alkaline Phosphatase 90 U/L (34-104) 04/11/21 23:04 Troponin I < 0.03 ng/ml (0-0.04) 04/11/21 23:04 Total Protein 7.9 gm/dl (6.0-8.3) 04/11/21 23:04 Albumin 4.5 gm/dl (3.4-5.0) 04/11/21 23:04 Globulin 3.4 gm/dl (2.5-4.0) 04/11/21 23:04 Albumin/Globulin Ratio 1.3 (0.9-2) 04/11/21 23:04 SARS-CoV-2, RNA, NAAT NEGATIVE (NEGATIVE) 04/12/21 01:45 Diagnostic Findings [facility] Patient: PUNEET MONTAÑO (Female) : 46 Status: ER Date: 04/12/21 01:03 Room #: History: elevated d-dimer, dyspnea Slices: 42 Priors: Tech: Schuler Janet @ [phone] Exams: US VENOUS BILATERAL LOWER EXTREMITIES Contrast: Accession Numbers: [id number] Referring Physician: MATT HAAS Preliminary Findings Only See Final Report For Complete Findings US VENOUS BILATERAL LOWER EXTREMITIES: No evidence of deep venous thrombosis. Radiologist: Sharlene Moran M.D. Study ready at 01:06 and initial results transmitted at 01:26 *This report constitutes a preliminary interpretation only. Non-acute findings felt to be unrelated to the clinical presentation may not be discussed in this report. The study will be interpreted and a final report will be generated by the local Radiologist the following shift. To reach the hospital radiology department call [phone]. If a discrepancy is found between the preliminary and final interpretations of this study, please notify us via our Client Portal at [email or web address], under [email or web address]. You can also fax this report with a description of the discrepancy, or include the final report, to our daytime fax number [phone]. If faxing, please indicate the severity of discrepancy using one of the following categories: [ ] 1 - Agree/Informational [ ] 2 - Unlikely to Affect Management [ ] 3 - Possible Eventual Change of Management [ ] 4 - Probable Immediate Change of Management For all other patient related information, please fax us at [phone]. [id number] [facility] Patient: PUNEET MONTAÑO (Female) : 46 Status: ER Date: 04/12/21 00:15 Room #: History: PT. REPORTS CHEST TIGHTNESS; SOB RULE OUT PE; ELEVATED D-DIMER OPTI 320 119 CC Slices: 656 Priors: Riley: Akua Sen @ [phone] Exams: CTA CHEST Contrast: IV Amt: OPTI 320 119 CC Accession Numbers: [id number] Referring Physician: MATT HAAS Preliminary Findings Only See Final Report For Complete Findings CTA CHEST: CT chest without contrast 09/12/2020 No acute pulmonary embolism visualized. No focal consolidation, pleural effusion or pneumothorax. Status post left upper lobectomy. Splenomegaly. Radiologist: Sharlene Moran M.D. Study ready at 00:25 and initial results transmitted at 01:00 *This report constitutes a preliminary interpretation only. Non-acute findings felt to be unrelated to the clinical presentation may not be discussed in this report. The study will be interpreted and a final report will be generated by the local Radiologist the following shift. To reach the [facility] radiology department call [phone]. If a discrepancy is found between the preliminary and final interpretations of this study, please notify us via our Client Portal at [email or web address], under [email or web address] [email or web address]. You can also fax this report with a description of the discrepancy, or include the final report, to our daytime fax number [phone]. If faxing, please indicate the severity of discrepancy using one of the following categories: [ ] 1 - Agree/Informational [ ] 2 - Unlikely to Affect Management [ ] 3 - Possible Eventual Change of Management [ ] 4 - Probable Immediate Change of Management For all other patient related information, please fax us at [phone]. [id number] Code Status & VTE Plan Code Status Full code VTE Prophylaxis Plan VTE Prophylaxis will be ordered: Yes PG Care Time/CCT Total # of Minutes Spent Total Time Spent with Patient: Total time spent is greater than 50% in coordination of care (as documented) at patient's floor/unit and/or counseling patient: Coding Level of Care Code INT OBSERVATION CARE 70M LVL 3 Diagnoses Hypoxia R09.02 Acute and chronic respiratory failure with hypoxia J96.21 Chest pain R07.9 History of tobacco abuse Z87.891 GERD (gastroesophageal reflux disease) K21.9 High cholesterol E78.00
[2021-04-12] MEDS ORDERED: ALBUT/IPRATROP 3MG/0.5MG NEB 3 ML VIAL NEB PRN (03:36)
[2021-04-12] MEDS ORDERED: CETIRIZINE HCL 10 MG TABLET PO PRN (04:44)
[2021-04-12] MEDS ORDERED: NITROGLYCERIN SL 0.4 MG/TAB TAB SL PRN (04:44)
[2021-04-12] MEDS ORDERED: ONDANSETRON INJ 2 MG/ML 2 ML VIAL IV PRN (04:44)
[2021-04-12] MEDS ORDERED: ACETAMINOPHEN 325 MG TAB PO PRN (04:44)
--- NOTE | 2021-04-12 08:22 | CT Scan Report ---
CT angio chest PE protocol CLINICAL HISTORY: elevated d dimer, dyspnea . Chest tightness and shortness of breath. Evaluate for p ulmonary embolus. COMPARISON STUDY: 2 view chest 04/10/2021 CT DOSE: 314.79 mGy.cm TECHNIQUE: CT Angio of the chest was performed.followed by image post processing with coronal, and s agittal MIP reformats. Contrast Volume: Optiray 320, 119 ml FINDINGS: Vasculature: There is homogeneous perfusion of the pulmonary vasculature bilaterally. No intraluminal filling defects or evidence for pulmonary embolus is seen. Airway: The airway is clear. No endobronchial lesion is identified. Lungs: There are mild centrilobular emphysematous changes. The lungs are otherwise clear of acute abdulkadir eolar opacities, air bronchograms or pulmonary nodules. Minimal dependent edema/atelectasis is presen t at the lung bases. The patient is status post left upper lobe lobectomy with elevation left hemidia phragm. Pleura: There is no evidence for pleural effusion. There is no evidence for pneumothorax. Mediastinum: There is no evidence for pathologic adenopathy. The heart size is within normal limits. Mild coronary artery calcification is present. The thoracic aorta is within normal limits. Mild ather osclerotic calcification is present. There is no evidence for pericardial effusion. Upper abdomen:The adrenal glands are normal bilaterally. Osseous structures: There is no acute osseous pathology. Impression: 1. No CTA evidence for pulmonary embolus. 2. No acute chest disease. 3. Mild centrilobular emphysematous changes. 4. Previous left upper lobe lobectomy. ACT 112: Negative or not required by law. Electronically signed by: Clint Schmitt M.D. 04/12/2021 8:21 AM
--- NOTE | 2021-04-12 08:26 | Ultrasound Report ---
US venous doppler LE BI CLINICAL HISTORY: elevated d dimer, dyspnea . Lower extremity swelling COMPARISON: None available at the time of this dictation. TECHNIQUE: Bilateral lower extremity real-time compression venous ultrasound with Color Doppler imagi ng. Utilizing real-time ultrasonic imaging multiple real time high-resolution ultrasonic images with comp ression and noncompression maneuvers of the deep venous system in addition to color doppler imaging w ere performed from the common femoral vein through the proximal calf veins. FINDINGS: Currently there is normal compressibility of the deep venous system from the common femoral vein thro ugh the proximal calf veins. No current evidence of acute thrombosis is identified. Impression: No evidence of deep venous thrombus. ACT 112: Negative or not required by law. Electronically signed by: Clint Schmitt M.D. 04/12/2021 8:24 AM
[2021-04-12] MEDS: ENOXAPARIN INJ 30 MG/0.3 ML SYR SQ SCH (08:33)
[2021-04-12] MEDS ORDERED: CHOLECALCIFEROL 5,000 UNITS 125 MCG TAB PO SCH (09:00)
[2021-04-12] MEDS ORDERED: HEPARIN 100 UNIT/ML 5ML FLUSH FLUSH PRN (09:59)
--- NOTE | 2021-04-12 10:14 | Hospitalist Progress Note ---
Date of Service April 12, 2021 Assessment & Plan (1) Chest pain: Plan: Chest pain and pressure with exertional activity/acute on chronic respiratory failure with hypoxia- The patient will be admitted to telemetry for serial cardiac enzymes, serial EKG's, cardiac rhythm monitoring and a 2-D echocardiogram with Dopplers. Patient with increased oxygen requirement, typically requiring 2 L intermittently at nighttime, now requiring that for daytime physical activity No signs of CHF on examination May be an element of COPD exacerbation with history of oxygen requirement nighttime, and history of tobacco abuse DuoNebs every 2 hours as needed (2) Hypoxia: Plan: See above (3) Acute and chronic respiratory failure with hypoxia: Plan: See above (4) History of tobacco abuse: Plan: Cessation counseling (5) GERD (gastroesophageal reflux disease): Plan: Continue pantoprazole (6) High cholesterol: Plan: Continue rosuvastatin Admission and Anticipated Discharge Date Admission Date: April 12, 2021 Results & Data Results & Data ([facility]) Vital Signs (Past 12 Hours) Vital Signs Temp Pulse Pulse Resp BP BP Pulse Ox 04/12/21 07:50 98.2 F 79 16 122/77 96 04/12/21 07:24 73 04/12/21 04:58 97.9 F 88 16 147/83 H 96 04/12/21 04:08 69 18 135/79 97 04/12/21 03:00 76 22 134/88 97 04/12/21 02:23 75 20 149/101 H 96 04/12/21 02:00 89 18 149/101 H 98 04/12/21 01:03 74 158/90 H 96 04/12/21 00:11 90 24 172/88 H 100 04/11/21 23:03 76 18 123/85 95 04/11/21 22:52 96 04/11/21 22:22 97.3 F L 96 H 20 161/95 H 94 PG Care Time/CCT Total # of Minutes Spent Total Time Spent with Patient: Total time spent is greater than 50% in coordination of care (as documented) at patient's floor/unit and/or counseling patient: Coding Diagnoses Chest pain R07.9 Hypoxia R09.02 Acute and chronic respiratory failure with hypoxia J96.21 History of tobacco abuse Z87.891 GERD (gastroesophageal reflux disease) K21.9 High cholesterol E78.00
--- NOTE | 2021-04-12 13:22 | Pulmonary Consultation ---
Date of Consultation April 12, 2021 Assessment & Plan (1) LONDON (dyspnea on exertion): Suspect this is multifactorial related to her chronic issues including interstitial lung disease, lung cancer and deconditioning. We will trial a short course of prednisone to see if there is any symptomatic improvement. Agree with ruling out cardiac etiology. Primary team has ordered a cardiac stress test. (2) Hypoxemia requiring supplemental oxygen: Continue supplemental oxygen to maintain saturations greater than 88%. We will schedule her for repeat PFTs prior to the visit with me in May in the outpatient setting. (3) Chest pain: No evidence of pulmonary embolism seen on CT chest. Primary team ruling out cardiac etiology. (4) D-dimer, elevated: The etiology of the elevated D-dimer is unclear. No lower extremity clot or PE identified. Possibly related to her malignancy. Coronary artery thrombosis also seems less likely. Thank you for the consult. I suspect that the patient can be discharged home tomorrow if her cardiac stress test is negative with a short prednisone course. History of Present Illness Reason for Consultation: Patient known to the pulmonary service with shortness of breath Attending Physician: Zeferino Fitzpatrick DO History of Present Illness 70-year-old female with a history of stage III non-small cell lung cancer and COVID-19 viral pneumonia diagnosed in February 2020. She was incidentally discovered to have a 1 cm left upper lobe nodule during that hospitalization and follow-up CT chest imaging demonstrated growth. I performed a navigational bronchoscopy and biopsy of the left upper lobe nodule which suggested possible adenocarcinoma. Patient was ultimately referred to thoracic surgery in [facility] and they performed a left upper lobectomy. She has been on oxygen at nighttime and occasionally uses it during the day. Over the past several weeks she notes that her oxygen levels have been dropping to the 80s on room air and she would have mild chest pain with exertion at this time. She contacted the pulmonary office and I ordered a chest x-ray which demonstrated stable findings. I suggested that we obtain a D-dimer which was checked on 04/11/2021 and was elevated at 1490 ug/L. Given her history of malignancy and symptoms, I was concerned that she was at an elevated risk for DVT or PE. Yesterday evening I called the patient with the lab results and instructed her to go to the ER. She underwent a lower extremity Doppler which did not find evidence of a DVT. I personally reviewed the chest CTA completed yesterday which demonstrated centrilobular emphysema, findings consistent with a left upper lobectomy, left upper lobe subpleural reticular changes, mosaic attenuation diffusely and groundglass changes in the bilateral lower lobes. Notably she does have a significant smoking history of roughly 30 pack years, but quit smoking 30 years ago. Her was also a heavy smoker and she had significant secondhand exposure to smoke. When she underwent her left upper lobectomy in [facility] pathology also reviewed her lung parenchyma for evidence of ILD. Pathology noted changes consistent with respiratory bronchiolitis- interstitial lung disease. As she was discovered to have stage IIIa lung cancer during her lobectomy, she was referred to oncology for adjuvant chemotherapy. She had a PET/CT scan ordered by [facility] on 02/25/2021 which demonstrated moderate FDG uptake within several minimally enlarged subcarinal lymph nodes and mild uptake within a nonenlarged AP window lymph node. As mentioned previously the chest CTA from yesterday was not suggestive of pathologic lymphadenopathy. She does describe a significant weight loss over the last several months with roughly 10 to 15 pounds. She was ultimately admitted by the hospitalist service last night as a chest pain rule out. Echocardiogram was ordered along with serial troponin labs. Troponins have been negative. EKG without evidence of ischemia. Allergies Allergy/AdvReac Type Severity Reaction Status Date / Time No Known Allergies Allergy Verified 04/11/21 23:30 Home Medications Medication Instructions Recorded Confirmed Type Oxygen Home #1 ea 02/13/20 12/26/20 Rx inhalational spacing device #1 ea 02/13/20 12/26/20 Rx (Aerochamber MV) rosuvastatin 5 mg tablet (Crestor) 5 mg PO 3XWK 02/28/20 04/11/21 History cetirizine 10 mg tablet (Zyrtec) 10 mg PO HS PRN 05/13/20 04/11/21 History pantoprazole 40 mg tablet,delayed 40 mg PO HS 05/13/20 04/11/21 History release (Protonix) cholecalciferol (vitamin D3) 125 125 mcg PO 4XWK 09/04/20 04/11/21 History mcg (5,000 unit) tablet (Vitamin D3) Patient History Medical History (Updated 04/12/21 @ 15:14 by Talha Dahl MD) Chronic hypoxemic respiratory failure D-dimer, elevated GERD (gastroesophageal reflux disease) Mild High cholesterol History of COVID-19 Dx 02/2020 > symptoms at time: severe nausea and hypoxia, treated at [facility] > symptoms improved but residual need for home oxygen supplementation Hypoxia Lung cancer Stage IIIa non-small cell lung cancer s/p left upper lobectomy, plan for starting chemo 11/27 On home oxygen therapy 2L O2 HS + PRN via n/c Schatzki's ring Found during 05/2020 EGD, unable to dilate at time Surgical History History of anesthesia reaction Per anesthesia progress note (05/19/20; [facility]): "during egd patient desaturated to 60%, but recovered on her own. It was decided to not attempt the colonoscopy because of the fragile nature of the pt lungs" > Pt subsequently had endobronchial ultrasound guided biopsy under general anesthesia at [facility] with no noted anesthesia complications History of bilateral tubal ligation History of biopsy Endobronchial ultrasound guided biopsy (09/12/20): LMA #4 igel at [facility] History of esophagogastroduodenoscopy (EGD) History of lobectomy of lung MAGDALENE Port-A-Cath in place (12/04/20) Insertion of Access Port with Fluoroscopy Dr. Chong 12/04/2020 Family History Mother FHx: pancreatic cancer Aunt FHx: colon cancer Other No family history of adverse response to anesthesia Social History Smoking Status: Former smoker packs per day: 1.5; Years Smoked: 25; Number of Years Since Quit: 27; Second Hand Exposure: Yes (hx); Hx Alcohol Use: No Hx Substance Use: No Preferred Language: Yoruba Communication Ability: Effective Field Support Rep Required: No Beliefs That Will Affect Care: None marital status: Current Living Situation: Spouse current occupational status: retired How many Children do You have: 3 Feels Safe at Home: Yes Assistive Devices: Oxygen - at Night Review of Systems Review of Systems: All systems reviewed & are unremarkable except as noted in HPI & below Physical Exam Physical Exam: Constitutional: Thin appearing female in no significant distress lying in bed. Nasal cannula in place. Pleasant. Eyes: Pupils are equal round and reactive to light. Conjunctivae are normal. Anicteric sclera. Ears nose, mouth and throat: Mallampati class []. Normal posterior oropharynx. Uvula is midline. Neck: Trachea is midline. Visual inspection is normal. Respiratory: Crackles noted greater in the right lower lobe. Otherwise clear. Cardiovascular: Regular rate and rhythm. No murmurs. No edema. Gastrointestinal: Normal bowel sounds, soft, nontender and nondistended. No hepatosplenomegaly noted. Musculoskeletal: Moves all extremities well. Skin: No rashes, warm dry and intact. Neurologic: No obvious focal neurological deficits seen. Psychiatric: Alert and oriented x3 with a euthymic affect. Results & Data Results & Data ([facility]) Vital Signs (Past 12 Hours) Vital Signs Temp Pulse Pulse Pulse Pulse Pulse Pulse 04/12/21 12:30 89 110 H 84 86 04/12/21 07:50 36.8 C 79 04/12/21 07:24 73 04/12/21 04:58 36.6 C 88 04/12/21 04:08 69 04/12/21 03:00 76 04/12/21 02:23 75 04/12/21 02:00 89 Resp Resp Resp Resp Resp BP BP 04/12/21 12:30 20 22 20 18 04/12/21 07:50 16 122/77 04/12/21 07:24 04/12/21 04:58 16 147/83 H 04/12/21 04:08 18 135/79 04/12/21 03:00 22 134/88 04/12/21 02:23 20 149/101 H 04/12/21 02:00 18 149/101 H Pulse Ox Pulse Ox Pulse Ox Pulse Ox Pulse Ox 04/12/21 12:30 91 85 L 91 94 04/12/21 07:50 96 04/12/21 07:24 04/12/21 04:58 96 04/12/21 04:08 97 04/12/21 03:00 97 04/12/21 02:23 96 04/12/21 02:00 98 PG Care Time/CCT Total # of Minutes Spent Total Time Spent with Patient: Total time spent is greater than 50% in coordination of care (as documented) at patient's floor/unit and/or counseling patient: Coding Level of Care Code 96394 Initial Inpt Care Lvl 2 Diagnoses LONDON (dyspnea on exertion) R06.00 Hypoxemia requiring supplemental oxygen R09.02; Z99.81 Chest pain R07.9 D-dimer, elevated R79.89
--- NOTE | 2021-04-12 15:31 | Communication Note ---
Date of Service: April 12, 2021 I personally examined the patient and verified all guillory points of history and exam, discussed case, and agree with decision making with Dr Horta briefly seen in f/u from early AM admission. LONDON/CP. being seen by pulmonary when i enter the room vitals noted nad breathing unlabored no accessory muscles good effort skin no rashes no pallor or icterus CP/LONDON - COPD vs CAD vs elements of both. treat COPD (for now steroids - ?baseline inhaler regimen at home not on med list - if not would start), and stress test tomorrow. follow.
[2021-04-12] MEDS: predniSONE 10 MG TABLET PO SCH (15:40)
[2021-04-12] MEDS ORDERED: PANTOprazole 40 MG TAB PO SCH (21:00)
--- NOTE | 2021-04-13 06:46 | Electrocardiogram Report ---
Test Reason : Blood Pressure : / mmHG Vent. Rate : 079 BPM Atrial Rate : 079 BPM P-R Int : 164 ms QRS Dur : 082 ms QT Int : 380 ms P-R-T Axes : 041 -26 020 degrees QTc Int : 435 ms Normal sinus rhythm Normal ECG When compared with ECG of 03-FEB-2020 20:34, No significant change was found Confirmed by Jose Luis Reinoso ([id number]) on 04/13/2021 6:45:55 AM Referred By: Talha Dahl Confirmed By:Jose Luis Reinoso
[2021-04-13 08:11] LABS: Basophils # (auto) 0.02 K/uL (0-0.2); Basophils % (auto) 0.2 %; Eosinophils # (auto) 0.02 K/uL (0-0.5); Eosinophils % (auto) 0.2 %; Hematocrit (blood only) 32.5 % (37-47); Hemoglobin 10.8 g/dL (12.0-16.0); Immature Granulocytes # (auto) 0.02 K/uL (0.00-0.02); Immature Granulocytes % (auto) 0.2 %; Lymphocytes # (auto) 1.37 K/uL (1.2-3.4); Lymphocytes % (auto) 16.8 %; Mean Corpuscular Hgb Conc 33.2 g/dL (32-36); Mean Corpuscular Volume 96.2 fL (80-100); Mean Platelet Volume 9.8 fL (7.4-10.4); Neutrophils # (auto) 5.84 K/uL (1.4-6.5); Neutrophils % (auto) 71.6 %; Platelet Count 242 K/uL (130-400); RDW Coefficient of Variation 13.3 % (11.5-14.5); RDW Standard Deviation 46.4 fL (36.4-46.3); Red Blood Count 3.38 M/uL (4.2-5.4); White Blood Count 8.17 K/uL (4.8-10.8)
--- NOTE | 2021-04-13 08:37 | Hospitalist Progress Note ---
Date of Service April 13, 2021 Assessment & Plan Admission and Anticipated Discharge Date Admission Date: April 12, 2021 Results & Data Results & Data ([facility]) Vital Signs (Past 12 Hours) Vital Signs Temp Pulse Pulse Resp BP Pulse Ox 04/13/21 07:00 36.8 C 74 108/66 95 04/13/21 03:11 36.6 C 70 20 135/74 98 04/12/21 23:52 70 04/12/21 23:00 36.7 C 72 18 117/69 96
[2021-04-13 08:40] LABS: Albumin Globulin Ratio 1.3 (0.9-2); Albumin Level 4.4 gm/dl (3.4-5.0); BUN Creatinine Ratio 22.4 (10-20); Bilirubin,Total 0.5 mg/dl (0.2-1.0); Calcium 9.2 mg/dl (8.5-10.1); Creatinine Clr Calc Pharmacy 37.7 ml/min; Est GFR (African American) 49.8 ml/min; Est GFR (Non-African American) 42.9 ml/min; Globulin 3.3 gm/dl (2.5-4.0); Potassium 4.1 mmol/L (3.5-5.1); Total Protein 7.7 gm/dl (6.0-8.3)
[2021-04-13] MEDS ORDERED: ROSUVASTATIN CALCIUM 5 MG TAB PO SCH (09:00)
[2021-04-13] MEDS ORDERED: ATROPINE SULFATE 0.1 MG/ML 10ML SYR IV ONE (09:25)
[2021-04-13] MEDS ORDERED: DOBUTamine HCL 12.5 MG/ML 20 ML VIAL IV ONE ×2 (09:25→09:28)
[2021-04-13] MEDS ORDERED: METOPROLOL TARTRATE 1 MG/ML VIAL IV ONE (09:25)
[2021-04-13] MEDS: predniSONE 10 MG TABLET PO SCH (10:41)
[2021-04-13] MEDS: ENOXAPARIN INJ 30 MG/0.3 ML SYR SQ SCH (10:42)
--- NOTE | 2021-04-13 12:06 | XCELERA ---
[id number] \\[id number]}___[id number]
--- NOTE | 2021-04-13 13:36 | Discharge Summary ---
Date of Service April 13, 2021 Admission HPI Per Admitting Provider The patient is a 70-year-old female with a past medical history including chronic hypoxemic respiratory failure, tobacco abuse, GERD, left upper lobe lobectomy and Port-A-Cath in place in left upper chest wall. She presents to the emergency department after being referred by her social service technician to done an outpatient D-dimer test that reportedly was elevated. She underwent CT angiography of the chest which was negative for PE or infection. She also underwent venous Dopplers which were negative bilaterally for DVT She was referred for admission due to exertional dyspnea and hypoxia with a short walk to the bathroom. She does use oxygen at at bedtime only at home Admission Exam Per Admitting Provider The patient is awake, alert and oriented 3, well developed and well nourished, normocephalic and atraumatic, lying in bed and in no acute distress. HEENT--PERRL, EOMI, mucous membranes and oropharynx normal Neck--supple. No JVD. No bruits. Thyroid normal, trachea midline, no adenopathy. Heart--normal S1 and S2. No murmurs, rubs or gallops. Lungs--a few scattered wheezes. No respiratory distress, no accessory muscle use. Abdomen--normal bowel sounds and soft. Nontender. Nondistended, no hernias or masses, no organomegaly. Extremities--no cyanosis or clubbing. No edema. Dermatologic--normal skin turgor, normal color, no abnormal lymph nodes, no rash. Neurologic--cranial nerves II through XII grossly intact. Rheumatologic--normal range of motion. Psychiatric--normal affect. Principal Diagnosis Dyspnea on Exertion Discharge Exam Constitutional WD/WN, vitals as above Eyes PERRL, conjunctivae normal, anicteric sclerae ENMT external ear and nose normal, oropharynx normal Neck trachea midline, no thyromegaly Respiratory normal respiratory effort, lungs clear to auscultation on 1L oxygen at rest Cardiovascular RRR, no murmur, no edema Chest (Breasts) Chest: normal inspection of chest Gastrointestinal (Abdomen) normal bowel sounds, soft, nontender, no hepatosplenomegaly Skin no rashes, warm and dry Psychiatric A+Ox3, euthymic affect Discharge Data Allergies Allergy/AdvReac Type Severity Reaction Status Date / Time No Known Allergies Allergy Verified 04/11/21 23:30 Consultations 04/12/21 01:23 ED Decision to Admit Stat 04/12/21 10:15 Consult Pulmonology Routine Ordered Studies 04/11/21 22:37 CT angio chest PE protocol Urgent 04/12/21 US venous doppler [facility] Urgent Hospital Course (1) LONDON (dyspnea on exertion): (2) D-dimer, elevated: (3) Chest pain: (4) History of COVID-19: 70-year-old female with a past medical history including chronic hypoxemic respiratory failure, tobacco abuse, GERD, left upper lobe lobectomy and Port-A-Cath in place in left upper chest wall. Patient started on Prednisone 30mg 1 tab daily for 3 days Patient to use home oxygen as needed during daytime exertion Patient to follow with Pulmonology in May (1) Chest pain: Patient complained of chest pain and pressure with exertional activity/acute on chronic respiratory failure with hypoxia, sent here by pulmnology for elevated D-Dimer 1490. Patient with increased oxygen requirement, typically requiring 2 L intermittently at nighttime, now requiring that for daytime physical activity. No signs of CHF on examination. Negative venous doppler. Chest CTA negative for PE. Dobutamine stress echo negative for ischemia. Pulmonology consulted, recommend short course oral prednisone for symptoms management, believes LONDON multifactorial from interstitial lung disease/lung cancer, and deconditioning. Patient declines starting home inhaler regime, wants to continue her home oxygen. She is to follow up with Pulmonology and with her PCP in outpatient. (2) Hypoxia: Plan: See above (3) Acute and chronic respiratory failure with hypoxia: Plan: See above (4) History of tobacco abuse: Plan: Cessation counseling (5) GERD (gastroesophageal reflux disease): Plan: Continue pantoprazole (6) High cholesterol: Plan: Continue rosuvastatin Total Time Total Time Spent Total Time Spent (In Minutes): see attending attestation Discharge Plan Discharge Items Patient Disposition: Home - Self-Care Reason For Visit: CHEST PRESSURE, HYPOXIA Discharge Diagnosis: Dyspnea on Exertion Activity: Resume your previous activity Non-emergency contact: Primary Care Provider Call non-emergency contact if: you have any medication questions, your symptoms worsen and you have a fever Follow-up/Referrals: Talha Dahl MD [Physician] - (PULMONARY OFFICE WILL CALL YOU TO SET UP A DISCHARGE FOLLOW-UP APPOINTMENT.) Martinez Jaquez [Primary Care Provider] - 04/15/21 9:30 am Diet: Regular Addtl Attending Provider Instructions: You were admitted to the hospital for shortness of breath during daytime movement requiring oxygen. While you were in the hospital, we have ruled out blood clots and heart disease as the cause of your shortness of breath. You were seen by Dr. Dahl in Pulmonology, who started you on a short course of Prednisone to help manage your symptoms. You declined starting a home inhaler regime to manage your breathing symptoms. Please take Prednisone once a day and use your home oxygen as needed. Please schedule an appointment with Pulmonology in outpatient to follow up on your symptoms. Please see your PCP without one week of discharge. A discharge summary will be sent to your primary care physician to ensure continuity of care. Please bring this discharge summary with you to your next office appointment so that your provider can review it at that time. Follow-up appointments: Make a follow-up appointment with your PCP within the next week. It is very important that you follow up with them shortly after discharge from the hospital. Make a follow-up appointment with your Claims Director. It is very important that you follow up with them. Keep all your follow-up appointments as already scheduled. If you cannot make an appointment, notify your provider. Medications: Your medication list has been reviewed and reconciled upon discharge to ensure accuracy and continuity of care. An updated list of all your medications is included with your hospital discharge paperwork. Please review this list closely, and make note of any changes. * We sent a new medication called Prednisone to your pharmacy. Take Prednisone 30mg one tablet daily for 3 days starting 04/14/21. Take your medications as instructed; do not skip a dose of your medicines. Make sure all of your doctors know every medicine you are taking (including fulq-bty-vyiikem medicines, vitamins, and supplements). Call your primary care provider before taking any new medicines (including oeze-rsc-lbqkiju medicines, vitamins, and supplements), because some of these may interact with your current medications, or may make your symptoms worse. Tell your primary care provider if you cannot afford your medications. CONTACT YOUR PRIMARY CARE PROVIDER if you experience any of the following: Worsening shortness of breath, fever Difficulty following your treatment plan, or difficulty taking medications CALL 911 OR GO TO THE EMERGENCY DEPARTMENT if you experience any of the following: Sudden, severe abdominal pain or nausea/vomiting Severe chest pain, or chest pain that radiates (moves) to your jaw or arm Sudden, severe shortness of breath or difficulty breathing Thank you for allowing us to participate in your care. Pending Studies at Discharge: No Stand-Alone Forms: [facility], Smoking Cessation Medications and DC Order Prescriptions: New prednisone 20 mg tablet 30 mg PO DAILY 3 Days Qty: 5 RF: 0 Continued rosuvastatin [Crestor] 5 mg tablet 5 mg PO 3XWK RF: 0 (DME) Aerochamber MV Spacer See Rx Instructions .ROUTE .MEDSUPPLY Qty: 1 RF: 0 (DME) Oxygen Home Liters Per Minute 1 ea .Route .continuous Qty: 1 RF: 0 pantoprazole [Protonix] 40 mg tablet,delayed release (DR/EC) 40 mg PO HS RF: 0 cetirizine [Zyrtec] 10 mg Tablet 10 mg PO HS PRN (Reason: Allergy Symptoms) RF: 0 cholecalciferol (vitamin D3) [Vitamin D3] 125 mcg (5,000 unit) Tablet 125 mcg PO 4XWK RF: 0 Discharge Orders: Discharge Order (Routine); Ordered 04/13/21 Ordered By: Maria Tapia Admission Data Admit Date/Time: 04/12/21 02:16 Attending Provider: Gisela Lilly Admit Provider: Aashish Zarco Primary Care Provider: Martinez Jaquez Other Providers: Aashish Zarco ; Talha Dahl ; Zeferino Fitzpatrick Other Interventions: Discharge Summary Assessment (RN) Last Done: 04/13/21 15:29 Supervising Physician Co-Signing Physician Notes Resident Physician Supervision Note: I independently interviewed and examined the patient and verified the guillory history and physical, reviewed labs and image studies and agree with resident Dr. Tapia findings and care plan. Resident Activity Tracking Resident Involvement: Resident Care Provided Care Provided: Adult Hospital Medicine
== END 2021-04-13 15:25 | disposition home or self-care (01) ==
LOC: ED 22:20 → 2W 22:20 → SUATTDRO 04-12 02:16 → 2W 04-12 04:08

== ENCOUNTER 2024-12-12 13:30 | Inpatient (IN) ==
[2024-12-12] MEDS: ONDANSETRON INJ 2 MG/ML 2 ML VIAL IV STA (13:58)
--- NOTE | 2024-12-12 13:59 | Emergency Department Note ---
Impression & Plan Fecal impaction, Constipation, Pseudohyponatremia, Sepsis, Colitis ED Provider Note NAME: PUNEET MONTAÑO AGE: 74 SEX: F : 1950 ARRIVES VIA: Walk-In INFORMANT: Patient, ED PROVIDER(S): Mart Shell DO CHIEF COMPLAINT: Abdominal pain HPI: This is a 74-year-old female with the PMHx of GERD, HTN, HLD, and CKD presenting to [facility] for further evaluation of abdominal pain. Patient is accompanied by her who provide additional history. patient reports worsening abdominal pain since her last emergency department visit 12/10. Patient states she was found to have significant constipation. She has been using Senokot as well as MiraLAX without improvement. She has not had a significant bowel movement. She reports very small stools. Intermittently passing flatulence. Patient denies any abdominal surgical history besides a tubal ligation. Patient does report intermittent nausea without emesis. Patient reports a lack of p.o. intake secondary to her symptoms. They deny fever or chills. No cough or congestion. Denies chest pain or palpitations. No shortness of breath. No urinary complaints. Patient denies recent changes in medications or OTC supplements. Patient offers no other complaints, today. ADDITIONAL HISTORY OBTAINED: Per HPI Chronic Medical/Social Conditions Affecting Care: Per HPI PAST MEDICAL HISTORY: See Below PAST SURGICAL HISTORY: See Below FAMILY HISTORY: See Below SOCIAL HISTORY: See Below HOME MEDICATIONS: See Below ALLERGIES: See Below VITALS: See Below PHYSICAL EXAMINATION: GENERAL: Sitting up in bed, alert, well appearing, well nourished, no distress, non-toxic EYE EXAM: normal conjunctiva. OROPHARYNX: no exudate, no erythema, lips, buccal mucosa, and tongue normal and mucous membranes are dry LUNGS: Clear to auscultation. Normal chest wall mechanics HEART: no murmurs, regular rate ABDOMEN: abdomen soft, generalized TTP, no masses, no rebound or guarding. BACK: Back is symmetrical on inspection and there is no deformity, no midline tenderness, no CVA tenderness. SKIN: no rashes and no bruising UPPER EXTREMITIES: upper extremities are grossly normal. LOWER EXTREMITIES: No pitting edema. NEURO EXAM: Normal sensorium, GCS 15, normal speech, no gross weakness of arms, no gross weakness of legs. MEDICAL DECISION MAKING: Differential diagnoses includes but not limited to constipation, stool impaction, appendicitis, bowel obstruction, diverticulitis, malignancy, nephrolithiasis, gastroenteritis, pancreatitis, hepatobiliary disease, UTI, dehydration, electrolyte derangements In summary, this is a 74 year old female who presented with abdominal pain. Differential as above. Nursing notes and pertinent past medical records reviewed. Vital signs reviewed and the patient is mildly hypertensive and bradycardic but otherwise afebrile and HDS. History and presentation revealed recent ED evaluation for similar complaints. Reviewed documentation and workup including labs as well as CT scan from previous emergency department visit. Found to have constipation and started on stool softeners. Patient was still having some bowel function at that time. This appears to severely worsen as well as worsening pain raising concerns for possible surgical pathology. Physical examination revealed as above. As a result of my initial evaluation, patient has ongoing constipation but worsening abdominal pain. Does have significant tenderness on exam. Do feel it is reasonable to repeat the patient CT scan to ensure no significant obstruction or perforation in the setting of severe constipation. IV access was established and the patient was placed on CCRM. Therapeutics ordered include IVFR, IV Fentanyl and IV zofran. Diagnostics interpreted by me include EKG and cardiac monitoring as listed below: -Cardiac Monitoring: An order was placed for continuous cardiac monitoring. The monitor shows a rate of 50-90s with regular rhythm. -ECG: Normal sinus rhythm at a ventricular rate of [address] segment changes to suggest STEMI. Left axis deviation noted. Poor R wave progression leading to EKG read of possible anterior infarct. Intervals are within normal limits. Patient completed laboratory studies and imaging. There was significant delay in the laboratory operations coordinator obtaining lab draw for this patient. Results independently interpreted by me are significant leukocytosis of almost 30,000. Given leukocytosis as well as abdominal tenderness to palpation and tachypnea, will obtain sepsis workup. Further IV fluid resuscitation ordered. IV antibiotics with Zosyn ordered. Lactate is normal. There is no significant electrolyte derangements or significant kidney dysfunction from baseline besides likely pseudohyponatremia in the setting of hyperglycemia. No changes in LFTs. UA without evidence of UTI. The patient was managed with multiple doses of pain medication as well as IV fluid resuscitation. Patient was given a soapsuds enema. Failure to have a bowel movement. CT was independently interpreted by me as negative for free air or perforation. Patient does have significant stool burden throughout the entire colon. Patient will need further bowel regimen as an inpatient. I suspect the patient's sepsis is likely related to colitis. Patient has a normal lactate and does not examine as ischemic colitis at this time. Patient may benefit from evaluation by gastroenterology or the surgery team as an inpatient. Ultimately, the decision was made to admit the patient for sepsis secondary to colitis. Significant stool burden constipation of the colon. I discussed the case with the hospitalist service via telephone/TigerText and they are agreeable to admit the patient to their services. Based on the above, including the patient's age, coexisting illnesses, labs, imaging, and exam findings the decision to treat as an inpatient. I discussed the patient with the hospitalist team who recommended admission to their services. They received the medications, treatments, interventions indicated above and their condition remain guarded. I discussed my findings with the patient and their family and they understand and agree with the treatment plan. All patient / family questions were answered to their satisfaction. Consults/Care Managements Discussions: Per MDM ER treatment provided: See above Procedures:none Critical Care: None The chart was completed utilizing [employer] Speech voice recognition software. Grammatical errors, random word insertions, pronoun errors, and incomplete sentences are an occasional consequence of this system due to software limitations, ambient noise, and hardware issues. Any formal questions or concerns about the content, text, or information contained within the body of this dictation should be directly addressed to the physician for clarification. Past Med/Surg History Problem List (Updated 12/12/24 @ 23:13 by Mart Shell, DO) Colitis (Acute) Sepsis (Acute) Pseudohyponatremia (Acute) Constipation (Acute) Fecal impaction (Acute) Constipation (Acute) Intermittent abdominal pain (Acute) Chronic cough Vitamin B12 deficiency CKD stage 3a, GFR 45-59 ml/min Hypertension Emphysema lung Indigestion Shortness of breath Sensorineural hearing loss (SNHL) of both ears Chronic hypoxemic respiratory failure S/P lobectomy of lung [place] (dyspnea on exertion) (Acute) Chest pressure (Acute) High cholesterol Chest pain Hypoxia Port-A-Cath in place (12/04/20) Insertion of Access Port with Fluoroscopy Dr. Chong 12/04/2020 Hypoxemia requiring supplemental oxygen Dysphagia Left upper lobe pulmonary nodule Chronic hypoxemic respiratory failure GERD (gastroesophageal reflux disease) Mild Medical History Recurrent UTI History of tobacco abuse Preop pulmonary/respiratory exam COVID-19 02/2020. treated at [facility] inpatient. severe nausea and hypoxia 02/2020. using supplemental oxygen at home currently using 2lpm at rest, 3-4lpm n/c with exertion. oxygen level with exertion can drop to low 80's% but will come up to 92-93% with rest and the use of oxygen. following with PCP. Lung cancer Stage IIIa non-small cell lung cancer s/p left upper lobectomy, plan for starting chemo 11/27 On home oxygen therapy 2L O2 HS + PRN via n/c Schatzki's ring Found during 05/2020 EGD, unable to dilate at time History of COVID-19 Dx 02/2020 > symptoms at time: severe nausea and hypoxia, treated at [facility] > symptoms improved but residual need for home oxygen supplementation Pulmonary nodule Abnormal LFTs Acute respiratory failure with hypoxia Pneumonia due to COVID-19 virus Surgical History History of biopsy History of anesthesia reaction History of lobectomy of lung History of esophagogastroduodenoscopy (EGD) History of bilateral tubal ligation Family History Mother FHx: pancreatic cancer Aunt FHx: colon cancer Other No family history of adverse response to anesthesia Social History Smoking Status: Former smoker Tobacco Type: Cigarettes Age Started Using Tobacco: 11; Age Quit Using Tobacco: 41; packs per day: 1.5; Second Hand Exposure: Yes (hx); Do You Dip or Chew Tobacco: No; Hx Alcohol Use: No Hx Substance Use: No Preferred Language: Senegalese Communication Ability: Effective Visual Impairment: No Limitations Hearing Ability: Normal Online Editor Required: No Beliefs That Will Affect Care: None marital status: Current Living Situation: Spouse current occupational status: retired How many Children do You have: 3 Feels Safe at Home: Yes Diet: regular caffeine: Yes Dental Care, Regularly: Yes Physical Activity Frequency: Daily Seatbelt Use: always Sunscreen Use: Yes Assistive Devices: Oxygen - Continuous Allergies Allergies Allergy/AdvReac Type Severity Reaction Status Date / Time No Known Allergies Allergy Verified 12/10/24 18:50 Home Meds Home Medications Medication Instructions Recorded Confirmed cetirizine 10 mg tablet (Zyrtec) 10 mg PO HS PRN Allergy Symptoms 05/13/20 12/12/24 cholecalciferol (vitamin D3) 125 125 mcg PO 4XWK 09/04/20 12/12/24 mcg (5,000 unit) tablet (Vitamin D3) olmesartan 20 mg tablet 20 mg PO DAILY 10/16/24 12/12/24 pantoprazole 40 mg tablet,delayed 40 mg PO DAILY 10/16/24 12/12/24 release rosuvastatin 5 mg tablet (Crestor) 10 mg PO 3XWK 11/19/24 12/12/24 cyanocobalamin (vitamin B-12) 2,500 mcg sublingual DAILY 12/10/24 12/12/24 2,500 mcg sublingual tablet (Vitamin B-12) Previous Rx's Medication Instructions Recorded inhalational spacing device #1 ea 02/13/20 (Aerochamber MV spacer) Oxygen Home #1 ea 09/09/21 Portable Oxygen #1 ea 05/17/22 albuterol 90 mcg-budesonide 80 2 inh inhalation BID PRN shortness 02/03/24 mcg/actuation HFA aerosol inhaler of breath #10.7 grams (Airsupra) albuterol sulfate 90 mcg/actuation 2 inh inhalation QID PRN shortness 04/30/24 aerosol inhaler of breath or wheezing #8.5 grams tiotropium 2.5 mcg-olodaterol 2.5 2 puff inhalation DAILY #4 grams 10/19/24 mcg/actuation mist for inhalation (Stiolto Respimat) sennosides 8.6 mg-docusate sodium 1 - 2 tab-cap (1 - 2 x 8.6-50 mg) 12/10/24 50 mg tablet (Senokot-S) PO BID PRN constipation #60 tabs Results & Data (ED) Vital Signs Vital Signs - 24 hr 12/12/24 13:32 12/12/24 14:21 12/12/24 14:21 Temperature 36.4 C L Temperature Source Temporal Artery Scan Pulse Rate 55 L 80 83 Pulse Rate from SpO2 Sensor Respiratory Rate 24 27 H Blood Pressure 162/105 H 160/93 H Blood Pressure Mean 124 115 Pulse Oximetry 95 93 Oxygen Delivery Method Room Air Nasal Cannula Oxygen Flow Rate 2 Sepsis New/Unexplained Change in Mental Status No Sepsis Action Taken by Nursing No Action Required 12/12/24 14:30 12/12/24 15:21 12/12/24 15:22 Temperature Temperature Source Pulse Rate 82 87 Pulse Rate from SpO2 Sensor 82 Respiratory Rate 21 28 H Blood Pressure 148/88 H 148/88 H Blood Pressure Mean 108 117 Pulse Oximetry 95 96 Oxygen Delivery Method Nasal Cannula Oxygen Flow Rate 2 2 Sepsis New/Unexplained Change in Mental Status Sepsis Action Taken by Nursing 12/12/24 15:22 12/12/24 15:22 12/12/24 15:30 Temperature Temperature Source Pulse Rate Pulse Rate from SpO2 Sensor Respiratory Rate Blood Pressure 148/88 H 148/88 H 167/93 H Blood Pressure Mean 117 117 109 Pulse Oximetry Oxygen Delivery Method Oxygen Flow Rate Sepsis New/Unexplained Change in Mental Status Sepsis Action Taken by Nursing 12/12/24 15:30 12/12/24 15:30 12/12/24 15:30 Temperature Temperature Source Pulse Rate Pulse Rate from SpO2 Sensor Respiratory Rate Blood Pressure 167/93 H 167/93 H 167/93 H Blood Pressure Mean 109 109 109 Pulse Oximetry Oxygen Delivery Method Oxygen Flow Rate Sepsis New/Unexplained Change in Mental Status Sepsis Action Taken by Nursing 12/12/24 15:30 12/12/24 15:30 12/12/24 15:42 Temperature Temperature Source Pulse Rate 87 86 Pulse Rate from SpO2 Sensor 88 86 Respiratory Rate 23 27 H Blood Pressure 167/93 H Blood Pressure Mean 109 Pulse Oximetry 96 98 Oxygen Delivery Method Oxygen Flow Rate Sepsis New/Unexplained Change in Mental Status Sepsis Action Taken by Nursing 12/12/24 16:00 12/12/24 16:30 12/12/24 18:00 Temperature Temperature Source Pulse Rate 84 85 89 Pulse Rate from SpO2 Sensor 84 86 88 Respiratory Rate 22 24 33 H Blood Pressure 155/85 H 169/88 H 137/102 H Blood Pressure Mean 108 115 113 Pulse Oximetry 97 90 98 Oxygen Delivery Method Nasal Cannula Nasal Cannula Nasal Cannula Oxygen Flow Rate 2 2 2 Sepsis New/Unexplained Change in Mental Status Sepsis Action Taken by Nursing 12/12/24 18:01 12/12/24 18:03 12/12/24 18:10 Temperature Temperature Source Pulse Rate 91 H 87 Pulse Rate from SpO2 Sensor 87 Respiratory Rate 28 H Blood Pressure 137/102 H 145/99 H Blood Pressure Mean 113 124 Pulse Oximetry 98 Oxygen Delivery Method Nasal Cannula Oxygen Flow Rate 2 Sepsis New/Unexplained Change in Mental Status Sepsis Action Taken by Nursing 12/12/24 18:21 12/12/24 18:39 12/12/24 18:40 Temperature Temperature Source Pulse Rate 84 81 Pulse Rate from SpO2 Sensor 84 82 Respiratory Rate 30 H 32 H Blood Pressure 153/87 H 147/84 H Blood Pressure Mean 109 106 Pulse Oximetry 99 99 Oxygen Delivery Method Nasal Cannula Oxygen Flow Rate 2 Sepsis New/Unexplained Change in Mental Status Sepsis Action Taken by Nursing 12/12/24 18:42 12/12/24 18:48 12/12/24 18:50 Temperature Temperature Source Pulse Rate 83 81 Pulse Rate from SpO2 Sensor 83 82 Respiratory Rate 31 H 31 H Blood Pressure 138/80 Blood Pressure Mean 103 Pulse Oximetry 99 95 Oxygen Delivery Method Oxygen Flow Rate Sepsis New/Unexplained Change in Mental Status Sepsis Action Taken by Nursing 12/12/24 19:00 12/12/24 19:09 12/12/24 19:10 Temperature Temperature Source Pulse Rate 83 Pulse Rate from SpO2 Sensor 85 Respiratory Rate 30 H Blood Pressure 142/85 H 153/104 H Blood Pressure Mean 108 117 Pulse Oximetry 97 Oxygen Delivery Method Oxygen Flow Rate Sepsis New/Unexplained Change in Mental Status Sepsis Action Taken by Nursing 12/12/24 19:12 12/12/24 19:18 12/12/24 19:20 Temperature Temperature Source Pulse Rate 89 84 Pulse Rate from SpO2 Sensor 88 84 Respiratory Rate 35 H 26 H Blood Pressure 144/95 H Blood Pressure Mean 106 Pulse Oximetry 95 95 Oxygen Delivery Method Oxygen Flow Rate Sepsis New/Unexplained Change in Mental Status Sepsis Action Taken by Nursing 12/12/24 19:20 12/12/24 19:21 Temperature Temperature Source Pulse Rate 83 Pulse Rate from SpO2 Sensor 83 Respiratory Rate 26 H Blood Pressure 144/95 H Blood Pressure Mean 106 Pulse Oximetry 95 Oxygen Delivery Method Oxygen Flow Rate Sepsis New/Unexplained Change in Mental Status Sepsis Action Taken by Nursing Laboratory Data 12/12/24 16:01 12/12/24 16:01 Lab Results 12/12/24 12/12/24 12/12/24 Range/Units 16:01 16:12 16:20 WBC 29.74 H (4.8-10.8) K/ul RBC 4.14 L (4.20-5.40) M/uL Hgb 13.2 (12.0-16.0) g/dl Hct 37.7 (37.0-47.0) % MCV 91.1 (80.0-100.0) fL MCH 31.9 (25.0-34.0) pg MCHC 35.0 (32.0-36.0) g/dL RDW Std Deviation 45.4 (36.4-46.3) fL RDW Coeff of Annetta 13.5 (11.5-14.5) % Plt Count 247 (130-400) K/uL MPV 10.0 (9.4-12.4) fL Immature Gran % (Auto) 0.8 % Neut % (Auto) 88.7 % Lymph % (Auto) 3.2 % O'Brien % (Auto) 7.1 % Eos % (Auto) 0.0 % Baso % (Auto) 0.2 % Neut # (Auto) 26.38 H (1.40-6.50) K/uL Lymph # (Auto) 0.95 L (1.20-3.40) K/uL O'Brien # (Auto) 2.10 H (0.11-0.59) K/uL Eos # (Auto) 0.00 (0.00-0.50) K/uL Baso # (Auto) 0.07 (0.00-0.20) K/uL Immature Gran # (Auto) 0.24 H (0.01-0.20) K/uL RBC Morphology Unremarkable Sodium 135 L (136-145) mmol/L Potassium 3.6 (3.5-5.1) mmol/L Chloride 100 (98-107) mmol/L Carbon Dioxide 22 (21-32) mmol/L Anion Gap 13 H (3-11) BUN 28 H (6-23) mg/dl Creatinine 0.80 (0.6-1.2) mg/dl Est Cr Clr Drug Dosing Not Reportable eGFR 76.31 BUN/Creatinine Ratio 35.0 H (10-20) Glucose 159 H (70-99(Fasting)) mg/dl Lactate 1.5 (0.4-2.0) mmol/L Calcium 8.6 (8.6-10.3) mg/dl Magnesium 2.8 H (1.7-2.4) mg/dl Total Bilirubin 1.2 H (0.2-1.0) mg/dl AST 20 (13-39) U/L ALT 18 (7-52) U/L Alkaline Phosphatase 75 (34-104) U/L Total Protein 7.0 (6.0-8.3) gm/dl Albumin 3.9 (3.4-5.0) gm/dl Globulin 3.1 (2.5-4.0) gm/dl Albumin/Globulin Ratio 1.3 (0.9-2) Lipase 9 L (11-82) U/L Procalcitonin 0.14 (0-0.5) ng/ml Urine Color Dark Yellow Urine Appearance Clear (Clear) Urine pH 5.0 (4.5-7.5) Ur Specific [place] 1.034 H (1.000-1.030) Urine Protein Trace H (Negative) Urine Glucose (UA) Trace H (Negative) Urine Ketones 1+ H (Negative) Urine Blood Negative (Negative) Urine Nitrite Negative (Negative) Urine Bilirubin 2+ H (Negative) Urine Urobilinogen Negative (Negative) Ur Leukocyte Esterase 1+ H (Negative) Urine WBC (Auto) 0-5 (0-5) /hpf Urine RBC (Auto) 0-2 (0-2) /hpf U Hyaline Cast (Auto) 3-5 H (0-2) /lpf U Epithel Cells (Auto) 0-2 (0-2) /hpf Urine Bacteria (Auto) None Seen (None Seen) Urine Comment Administered Medications Morphine Sulfate (Morphine Sulfate 4 Mg/Ml 1 Ml Carp\Vial) 1 - 2 mg IV Q3H PRN PRN Reason: Pain Stop: 12/26/24 20:17 Last Admin: 12/12/24 20:26 Dose: 2 mg Documented By: YOMAIRA Ondansetron HCl (Ondansetron Inj 2 Mg/Ml 2 Ml Vial) 4 mg IV Q6H PRN PRN Reason: Nausea And Vomiting Stop: 01/11/25 20:17 Last Admin: 12/12/24 20:27 Dose: 4 mg Documented By: YOMAIRA Discontinued Medications Fentanyl Citrate (Fentanyl Citrate Pf 100 Mcg/2 Ml Vial) 50 mcg IV NOW ONE Stop: 12/12/24 13:57 Last Admin: 12/12/24 14:15 Dose: 50 mcg Documented By: mbu Fentanyl Citrate (Fentanyl Citrate Pf 100 Mcg/2 Ml Vial) 50 mcg IV NOW ONE Stop: 12/12/24 16:59 Last Admin: 12/12/24 17:21 Dose: 50 mcg Documented By: QGV Sodium Chloride (Nss) 500 mls @ 999 mls/hr IV .Q31M STA Stop: 12/12/24 14:09 Last Admin: 12/12/24 14:09 Dose: Not Given Documented By: CC Parenteral Electrolytes (Plasma-Lyte A Ph 7.4) 1,000 mls @ 999 mls/hr IV .Q1H1M ONE Stop: 12/12/24 14:56 Last Infusion: 12/12/24 15:17 Dose: Infused Documented By: jose franciscou Admin: 12/12/24 14:06 Dose: 999 mls/hr Documented By: CC Piperacillin Sod/Tazobactam Sod (Zosyn) 4.5 gm in 100 mls @ 200 mls/hr IV NOW ONE; Protocol Stop: 12/12/24 17:06 Last Infusion: 12/12/24 18:59 Dose: Infused Documented By: Admin: 12/12/24 18:26 Dose: 200 mls/hr Documented By: mbu Parenteral Electrolytes (Plasma-Lyte A Ph 7.4) 500 mls @ 999 mls/hr IV .Q31M ONE Stop: 12/12/24 17:07 Last Infusion: 12/12/24 17:58 Dose: Infused Documented By: Admin: 12/12/24 17:20 Dose: 999 mls/hr Documented By: QGV Acetaminophen (Ofirmev) 1,000 mg in 100 mls @ 400 mls/hr IV NOW STA Stop: 12/12/24 17:12 Last Infusion: 12/12/24 17:41 Dose: Infused Documented By: Admin: 12/12/24 17:20 Dose: 400 mls/hr Documented By: QGV Ioversol (Optiray 320 100ml) 92 ml IV ONCE ONE Stop: 12/12/24 17:49 Last Admin: 12/12/24 17:48 Dose: 92 ml Documented By: ESTUARDO Ondansetron HCl (Ondansetron Inj 2 Mg/Ml 2 Ml Vial) 4 mg IV NOW STA Stop: 12/12/24 13:40 Last Admin: 12/12/24 13:58 Dose: 4 mg Documented By: CC Imaging Data Radiologist's Impression: Abdomen/Pelvis CT 12/12/24 13:56 EXAMINATION: CT of the abdomen and pelvis performed after the administration of IV and oral contrast TECHNIQUE: Helical CT images from the lung bases through the symphysis pubis were obtained with contrast. Coronal and sagittal reformatted images were generated at a workstation for further assessment. Dose reduction techniques were achieved by using automatic exposure control and/or adjustment of mA and/or kV according to patient size and/or use of iterative reconstruction technique. COMPARISON: 12/10/2024 HISTORY: Abdominal pain FINDINGS: Lower chest: No consolidation. No pleural effusion or pneumothorax. Diffuse fibrotic changes. Liver: No suspicious liver lesions. Portal veins appear patent. Gallbladder: No gallstones. No evidence of acute cholecystitis. Spleen: Normal size. Pancreas: No suspicious pancreatic lesions. The pancreatic duct is not dilated. Adrenal glands: No adrenal nodules. Kidneys: No hydronephrosis or obstructing renal stones. Bladder / Pelvic organs: Unremarkable. Bowel: Diffuse, markedly large colonic stool burden mixed with fluid, as well as gaseous distention, significantly increased from prior. There is again an area of transition at the junction of the descending and sigmoid colon, where there is a prominent area of desiccated stool, and the large bowel distal to this area appears decompressed. The large bowel distal to this area also demonstrates wall thickening as on prior. New free fluid appears to surround the areas of large bowel, just proximal to this area of stool resulting in a blockade. Lymph nodes: No retroperitoneal, mesenteric, or pelvic lymphadenopathy. Peritoneum / Retroperitoneum: No free fluid or air within the abdomen. Vessels: No infrarenal aortic aneurysm. Bones and soft tissues: No suspicious lesion in the bones. IMPRESSION: Marked colonic stool mixed with fluid as well as gaseous distention, is significantly increased from prior. There is again an area of apparent blockade due to a ball of desiccated stool at the junction of the descending and sigmoid colon. Proximal to this area free fluid surrounds the large bowel, suggesting associated colitis. Wall thickening of the large bowel distal to this area is again seen. Electronically signed by David Cortes 12-12-2024 6:46 PM Chest X-Ray 12/12/24 16:37 Chest radiograph, one view History: Sepsis Comparison: None Findings: Single AP view of the chest performed. No focal consolidation or pleural effusion. No pneumothorax. The cardiomediastinal silhouette is within normal limits. Normal pulmonary vascularity. No evidence for lymphadenopathy. No visualized bony or soft tissue abnormality. Impression: Normal chest radiograph Electronically signed by David Cortes 12-12-2024 5:16 PM Discharge Plan Visit Data Chief Complaint: Constipation Stated Complaint: CONSTIPATION, PAIN, NAUSEA ED Provider: Mart Shell Discharge Problem: Fecal impaction, Constipation, Pseudohyponatremia, Sepsis, Colitis Patient Disposition: Admitted As Inpatient Condition: Serious Discharge Instructions Interventions: ED Discharge Assessment Last Done: 12/12/24 22:07
[2024-12-12] MEDS: PLASMA-LYTE A 1,000 ML IV ONE (14:06)
[2024-12-12] MEDS: SODIUM CHLORIDE 0.9% 500 ML IV STA (14:09)
[2024-12-12 16:35] LABS: Hematocrit (blood only) 37.7 % (37.0-47.0); Hemoglobin 13.2 g/dl (12.0-16.0); Mean Corpuscular Hemoglobin 31.9 pg (25.0-34.0); Mean Corpuscular Volume 91.1 fL (80.0-100.0); Platelet Count 247 K/uL (130-400); RDW Standard Deviation 45.4 fL (36.4-46.3); Red Blood Count 4.14 M/uL (4.20-5.40); White Blood Count 29.74 K/ul (4.8-10.8)
[2024-12-12 16:55] LABS: Alanine Aminotransferase 18 U/L (7-52); Albumin Globulin Ratio 1.3 (0.9-2); Albumin Level 3.9 gm/dl (3.4-5.0); Alkaline Phosphatase 75 U/L (34-104); Anion Gap 13 (3-11); Bilirubin,Total 1.2 mg/dl (0.2-1.0); Blood Urea Nitrogen 28 mg/dl (6-23); Calcium 8.6 mg/dl (8.6-10.3); Carbon Dioxide 22 mmol/L (21-32); Chloride 100 mmol/L (98-107); Globulin 3.1 gm/dl (2.5-4.0); Glucose 159 mg/dl (70-99(Fasting)); Lipase 9 U/L (11-82); Magnesium 2.8 mg/dl (1.7-2.4); Potassium 3.6 mmol/L (3.5-5.1); Sodium 135 mmol/L (136-145); Total Protein 7.0 gm/dl (6.0-8.3)
[2024-12-12 17:04] LABS: Immature Granulocytes # (auto) 0.24 K/uL (0.01-0.20); Immature Granulocytes % (auto) 0.8 %; RBC Morphology Unremarkable
--- NOTE | 2024-12-12 17:16 | XRay Report ---
Chest radiograph, one view History: Sepsis Comparison: None Findings: Single AP view of the chest performed. No focal consolidation or pleural effusion. No pneumothorax. The cardiomediastinal silhouette is within normal limits. Normal pulmonary vascularity. No evidence for lymphadenopathy. No visualized bony or soft tissue abnormality. Impression: Normal chest radiograph Electronically signed by David Cortes 12-12-2024 5:16 PM
[2024-12-12 17:20] LABS: Appearance Urine Clear (Clear); Bacteria Urine Automated None Seen (None Seen); Epithelial Cell Urine Auto 0-2 /hpf (0-2); Glucose Urine UA Trace (Negative); RBC Urine Automated 0-2 /hpf (0-2); WBC Urine Automated 0-5 /hpf (0-5)
[2024-12-12] MEDS: ACETAMINOPHEN 1,000 MG/100 ML VIAL IV STA (17:20)
[2024-12-12] MEDS: PLASMA-LYTE A 500 ML IV ONE (17:20)
[2024-12-12] MEDS: OPTIRAY 320 100ml IV ONE (17:48)
[2024-12-12] MEDS: PIPERACILLIN/TAZOBACTAM 4.5 GM/100 ML BAG IV ONE (18:26)
--- NOTE | 2024-12-12 18:47 | CT Scan Report ---
EXAMINATION: CT of the abdomen and pelvis performed after the administration of IV and oral contrast TECHNIQUE: Helical CT images from the lung bases through the symphysis pubis were obtained with contrast. Coronal and sagittal reformatted images were generated at a workstation for further assessment. Dose reduction techniques were achieved by using automatic exposure control and/or adjustment of mA and/or kV according to patient size and/or use of iterative reconstruction technique. COMPARISON: 12/10/2024 HISTORY: Abdominal pain FINDINGS: Lower chest: No consolidation. No pleural effusion or pneumothorax. Diffuse fibrotic changes. Liver: No suspicious liver lesions. Portal veins appear patent. Gallbladder: No gallstones. No evidence of acute cholecystitis. Spleen: Normal size. Pancreas: No suspicious pancreatic lesions. The pancreatic duct is not dilated. Adrenal glands: No adrenal nodules. Kidneys: No hydronephrosis or obstructing renal stones. Bladder / Pelvic organs: Unremarkable. Bowel: Diffuse, markedly large colonic stool burden mixed with fluid, as well as gaseous distention, significantly increased from prior. There is again an area of transition at the junction of the descending and sigmoid colon, where there is a prominent area of desiccated stool, and the large bowel distal to this area appears decompressed. The large bowel distal to this area also demonstrates wall thickening as on prior. New free fluid appears to surround the areas of large bowel, just proximal to this area of stool resulting in a blockade. Lymph nodes: No retroperitoneal, mesenteric, or pelvic lymphadenopathy. Peritoneum / Retroperitoneum: No free fluid or air within the abdomen. Vessels: No infrarenal aortic aneurysm. Bones and soft tissues: No suspicious lesion in the bones. IMPRESSION: Marked colonic stool mixed with fluid as well as gaseous distention, is significantly increased from prior. There is again an area of apparent blockade due to a ball of desiccated stool at the junction of the descending and sigmoid colon. Proximal to this area free fluid surrounds the large bowel, suggesting associated colitis. Wall thickening of the large bowel distal to this area is again seen. Electronically signed by David Cortes 12-12-2024 6:46 PM
--- NOTE | 2024-12-12 20:00 | History & Physical Report ---
Date of Service December 12, 2024 Assessment & Plan (1) Fecal impaction: (2) Colitis: (3) Hypertension: Plan 74yo female with history fo CKD, HTN presenting with severe constipation, fecal impaction noted on CT imaging. #Fecal impaction/Constipation/Colitis - patient reports longstanding history of constipation. Last BM approximately 1 week ago. Has had progressive lower abdominal discomfort, distention as well as nausea. CT findings as above with ongoing constipation, fecal impaction, suggestion of colitis. Patient is afebrile, HD stable. Does have leukocytosis with WBC=29.74 -Admit to medical -LR at 100mL/hr x 2L -Ambulation encouraged -Clear liquid diet as tolerated -Mineral oil enema daily -Docusate 10mg CO now and daily -Zofran PRN nausea -Morphine PRN pain -Zosyn 4.5gm IV q 8 hours -GI consultation appreciated for possible disimpaction given location of stool ball #Hypertension - patient on Olmesartan at home. Blood pressure appropriately controlled at present. -Valsartan 80mg po daily while inpatient #Chronic hypoxic respiratory failure -Continue supplemental O2 qHS -Umeclidinium/Vilanterol -Albuterol PRN #Hyperlipidemia -Continue Crestor History of Present Illness Chief Complaint: Constipation Primary Care Provider: Danna Lilly DO Manjula Marr is a 74yo female with history of CKD, HTN, chronic hypoxic respiratory failure on 2L supplemental O2qHS presenting with abdominal pain and obstipation. Patient reports longstanding history of bowel issues and chronic constipation since childhood. Patient reports may sometimes go a week or more between bowel movements. She first had some lower abdominal cramping and constipation which started 1 month ago and lasted for a day then resolved on its own. She was visiting her daughter last week and felt ill for a day with lower abdominal cramping and constipation which resolved after one day. She returned home on December 05 and felt ok for the next two days. Starting on 12/08/24 she began having severe lower abdominal discomfort, cramping, nausea, poor appetite and decreased oral intake. Patient was seen in the ER on 12/10/24 with these complaints. She had a CT of the abdomen with PO contrast which revealed an area of desiccated stool suggestive of chronic constipation with mild wall thickening of the decompressed rectum and sigmoid colon. She has been taking Senokot for the last several days - reports taking two tablets of Senna BID as well as Miralax hourly (reports taking approximately 11 doses of Miralax). No bowel movement as of yet. She reports last evening being very restless throughout the night with significant nausea and abdominal cramping. Also with abdominal distention. She is passing a small amount of flatus. Last bowel movement was possibly one week ago on 12/06, small amount. No additional complaints at this time ER Course: Soap suds enema Zofran 4mg IV x 2 doses Plasmalyte x 1.5L Fentanyl 50mcg x 2 Tylenol 1gm Zosyn 4.5hm Morphine 2mg Allergies Allergy/AdvReac Type Severity Reaction Status Date / Time No Known Allergies Allergy Verified 12/10/24 18:50 Home Medications Medication Instructions Recorded Confirmed Type inhalational spacing device #1 ea 02/13/20 12/12/24 Rx (Aerochamber MV spacer) cetirizine 10 mg tablet (Zyrtec) 10 mg PO HS PRN Allergy Symptoms 05/13/20 12/12/24 History cholecalciferol (vitamin D3) 125 125 mcg PO 4XWK 09/04/20 12/12/24 History mcg (5,000 unit) tablet (Vitamin D3) Oxygen Home #1 ea 09/09/21 12/12/24 Rx Portable Oxygen #1 ea 05/17/22 12/12/24 Rx albuterol 90 mcg-budesonide 80 2 inh inhalation BID PRN shortness 02/03/24 12/12/24 Rx mcg/actuation HFA aerosol inhaler of breath #10.7 grams (Airsupra) albuterol sulfate 90 mcg/actuation 2 inh inhalation QID PRN shortness 04/30/24 12/12/24 Rx aerosol inhaler of breath or wheezing #8.5 grams olmesartan 20 mg tablet 20 mg PO DAILY 10/16/24 12/12/24 History pantoprazole 40 mg tablet,delayed 40 mg PO DAILY 10/16/24 12/12/24 History release tiotropium 2.5 mcg-olodaterol 2.5 2 puff inhalation DAILY #4 grams 10/19/24 12/12/24 Rx mcg/actuation mist for inhalation (Stiolto Respimat) rosuvastatin 5 mg tablet (Crestor) 10 mg PO 3XWK 11/19/24 12/12/24 History cyanocobalamin (vitamin B-12) 2,500 mcg sublingual DAILY 12/10/24 12/12/24 History 2,500 mcg sublingual tablet (Vitamin B-12) sennosides 8.6 mg-docusate sodium 1 - 2 tab-cap (1 - 2 x 8.6-50 mg) 12/10/24 12/12/24 Rx 50 mg tablet (Senokot-S) PO BID PRN constipation #60 tabs Past Med/Surg History Problem List Colitis (Acute) Sepsis (Acute) Pseudohyponatremia (Acute) Constipation (Acute) Fecal impaction (Acute) Constipation (Acute) Intermittent abdominal pain (Acute) Chronic cough Vitamin B12 deficiency CKD stage 3a, GFR 45-59 ml/min Hypertension Emphysema lung Indigestion Shortness of breath Sensorineural hearing loss (SNHL) of both ears Chronic hypoxemic respiratory failure S/P lobectomy of lung [place] (dyspnea on exertion) (Acute) Chest pressure (Acute) High cholesterol Chest pain Hypoxia Port-A-Cath in place (12/04/20) Insertion of Access Port with Fluoroscopy Dr. Chong 12/04/2020 Hypoxemia requiring supplemental oxygen Dysphagia Left upper lobe pulmonary nodule Chronic hypoxemic respiratory failure GERD (gastroesophageal reflux disease) Mild Medical History Recurrent UTI History of tobacco abuse Preop pulmonary/respiratory exam COVID-19 02/2020. treated at [facility] inpatient. severe nausea and hypoxia 02/2020. using supplemental oxygen at home currently using 2lpm at rest, 3-4lpm n/c with exertion. oxygen level with exertion can drop to low 80's% but will come up to 92-93% with rest and the use of oxygen. following with PCP. Lung cancer Stage IIIa non-small cell lung cancer s/p left upper lobectomy, plan for starting chemo 11/27 On home oxygen therapy 2L O2 HS + PRN via n/c Schatzki's ring Found during 05/2020 EGD, unable to dilate at time History of COVID-19 Dx 02/2020 > symptoms at time: severe nausea and hypoxia, treated at [facility] > symptoms improved but residual need for home oxygen supplementation Pulmonary nodule Abnormal LFTs Acute respiratory failure with hypoxia Pneumonia due to COVID-19 virus Surgical History History of biopsy Endobronchial ultrasound guided biopsy (09/12/20): LMA #4 igel at [facility] History of anesthesia reaction Per anesthesia progress note (05/19/20; [facility]): "during egd patient desaturated to 60%, but recovered on her own. It was decided to not attempt the colonoscopy because of the fragile nature of the pt lungs" > Pt subsequently had endobronchial ultrasound guided biopsy under general anesthesia at [facility] with no noted anesthesia complications History of lobectomy of lung [place] History of esophagogastroduodenoscopy (EGD) History of bilateral tubal ligation Family History Mother FHx: pancreatic cancer Aunt FHx: colon cancer Other No family history of adverse response to anesthesia Social History Smoking Status: Former smoker Tobacco Type: Cigarettes Age Started Using Tobacco: 11; Age Quit Using Tobacco: 41; packs per day: 1.5; Second Hand Exposure: Yes (hx); Do You Dip or Chew Tobacco: No; Hx Alcohol Use: No Hx Substance Use: No Preferred Language: Portuguese Communication Ability: Effective Visual Impairment: No Limitations Hearing Ability: Normal [employer] Required: No Beliefs That Will Affect Care: None marital status: Current Living Situation: Spouse current occupational status: retired How many Children do You have: 3 Feels Safe at Home: Yes Diet: regular caffeine: Yes Dental Care, Regularly: Yes Physical Activity Frequency: Daily Seatbelt Use: always Sunscreen Use: Yes Assistive Devices: Oxygen - Continuous Review of Systems Review of Systems: All systems reviewed & are unremarkable except as noted in HPI & below Physical Exam Physical Exam: General: patient resting comfortably, NAD, non-toxic in appearance, AA&O x 4 Skin: warm, dry, intact, no rashes or lesions HEENT: NC/AT, PERRL, EOMI, anicteric sclera, conjunctiva without injection, external ear normal to inspection and nontender, nares patent, moist mucus membranes, dentition intact, no oropharyngeal lesions, neck supple, trachea midl ine, no LAD, no thyromegaly, no JVD Heart: +S1/S2, regular, no m/r/g Lungs: equal air entry bilaterally, no rales/rhonchi/wheezes Abd: +BS, soft, mild distention, tender to palpation in lower abdomen, no masses/organomegaly/ascites Ext: warm, 2+ pulses in UE/LE bilaterally, no clubbing/cyanosis or edema Neuro: nonfocal, patient AA&O x 4, speech intact, no facial droop, moving all extremities on command with equal strength 5/5 Results & Data Results & Data Vital Signs (Past 12 Hours) Vital Signs Temp Pulse Resp BP Pulse Ox O2 Del Method O2 Flow Rate 12/12/24 19:21 83 26 H 95 12/12/24 19:20 144/95 H 12/12/24 19:20 144/95 H 12/12/24 19:18 84 26 H 95 12/12/24 19:12 89 35 H 95 12/12/24 19:10 153/104 H 12/12/24 19:09 83 30 H 97 12/12/24 19:00 142/85 H 12/12/24 18:50 138/80 12/12/24 18:48 81 31 H 95 12/12/24 18:42 83 31 H 99 12/12/24 18:40 147/84 H 12/12/24 18:39 81 32 H 99 12/12/24 18:21 84 30 H 153/87 H 99 Nasal Cannula 2 12/12/24 18:10 145/99 H 12/12/24 18:03 87 28 H 137/102 H 98 Nasal Cannula 2 12/12/24 18:01 91 H 12/12/24 18:00 89 33 H 137/102 H 98 Nasal Cannula 2 12/12/24 16:30 85 24 169/88 H 90 Nasal Cannula 2 12/12/24 16:00 84 22 155/85 H 97 Nasal Cannula 2 12/12/24 15:42 86 27 H 98 12/12/24 15:30 87 23 96 12/12/24 15:30 167/93 H 12/12/24 15:30 167/93 H 12/12/24 15:30 167/93 H 12/12/24 15:30 167/93 H 12/12/24 15:30 167/93 H 12/12/24 15:22 148/88 H 12/12/24 15:22 148/88 H 12/12/24 15:22 148/88 H 12/12/24 15:21 87 28 H 148/88 H 96 Nasal Cannula 2 12/12/24 14:30 82 21 95 2 12/12/24 14:21 83 27 H 160/93 H 93 Nasal Cannula 2 12/12/24 14:21 80 12/12/24 13:32 36.4 C L 55 L 24 162/105 H 95 Room Air Laboratory Results Laboratory Results WBC 29.74 K/ul (4.8-10.8) H 12/12/24 16:01 RBC 4.14 M/uL (4.20-5.40) L 12/12/24 16:01 Hgb 13.2 g/dl (12.0-16.0) 12/12/24 16:01 Hct 37.7 % (37.0-47.0) 12/12/24 16: MCV 91.1 fL (80.0-100.0) 12/12/24 16: MCH 31.9 pg (25.0-34.0) 12/12/24 16:01 MCHC 35.0 g/dL (32.0-36.0) 12/12/24 16:01 RDW Std Deviation 45.4 fL (36.4-46.3) 12/12/24 16: RDW Coeff of Annetta 13.5 % (11.5-14.5) 12/12/24 16: Plt Count 247 K/uL (130-400) 12/12/24 16:01 MPV 10.0 fL (9.4-12.4) 12/12/24 16:01 Immature Gran % (Auto) 0.8 % 12/12/24 16:01 Neut % (Auto) 88.7 % 12/12/24 16:01 Lymph % (Auto) 3.2 % 12/12/24 16:01 Peach % (Auto) 7.1 % 12/12/24 16:01 Eos % (Auto) 0.0 % 12/12/24 16:01 Baso % (Auto) 0.2 % 12/12/24 16:01 Neut # (Auto) 26.38 K/uL (1.40-6.50) H 12/12/24 16:01 Lymph # (Auto) 0.95 K/uL (1.20-3.40) L 12/12/24 16:01 Peach # (Auto) 2.10 K/uL (0.11-0.59) H 12/12/24 16:01 Eos # (Auto) 0.00 K/uL (0.00-0.50) 12/12/24 16:01 Baso # (Auto) 0.07 K/uL (0.00-0.20) 12/12/24 16: Immature Gran # (Auto) 0.24 K/uL (0.01-0.20) H 12/12/24 16:01 RBC Morphology Unremarkable 12/12/24 16:01 Sodium 135 mmol/L (136-145) L 12/12/24 16: Potassium 3.6 mmol/L (3.5-5.1) 12/12/24 16: Chloride 100 mmol/L (98-107) 12/12/24 16:01 Carbon Dioxide 22 mmol/L (21-32) 12/12/24 16:01 Anion Gap 13 (3-11) H 12/12/24 16: BUN 28 mg/dl (6-23) H 12/12/24 16: Creatinine 0.80 mg/dl (0.6-1.2) 12/12/24 16: Est Cr Clr Drug Dosing Not Reportable 12/12/24 16: eGFR 76.31 12/12/24 16: BUN/Creatinine Ratio 35.0 (10-20) H 12/12/24 16:01 Glucose 159 mg/dl (70-99(Fasting)) H 12/12/24 16:01 Lactate 1.5 mmol/L (0.4-2.0) 12/12/24 16: Calcium 8.6 mg/dl (8.6-10.3) 12/12/24 16: Magnesium 2.8 mg/dl (1.7-2.4) H 12/12/24 16:01 Total Bilirubin 1.2 mg/dl (0.2-1.0) H 12/12/24 16:01 AST 20 U/L (13-39) 12/12/24 16:01 ALT 18 U/L (7-52) 12/12/24 16:01 Alkaline Phosphatase 75 U/L (34-104) 12/12/24 16:01 Total Protein 7.0 gm/dl (6.0-8.3) 12/12/24 16:01 Albumin 3.9 gm/dl (3.4-5.0) 12/12/24 16:01 Globulin 3.1 gm/dl (2.5-4.0) 12/12/24 16:01 Albumin/Globulin Ratio 1.3 (0.9-2) 12/12/24 16:01 Lipase 9 U/L (11-82) L 12/12/24 16: Procalcitonin 0.14 ng/ml (0-0.5) 12/12/24 16:12 Urine Color Dark Yellow 12/12/24 16:20 Urine Appearance Clear (Clear) 12/12/24 16:20 Urine pH 5.0 (4.5-7.5) 12/12/24 16:20 Ur Specific Boon 1.034 (1.000-1.030) H 12/12/24 16:20 Urine Protein Trace (Negative) H 12/12/24 16:20 Urine Glucose (UA) Trace (Negative) H 12/12/24 16:20 Urine Ketones 1+ (Negative) H 12/12/24 16:20 Urine Blood Negative (Negative) 12/12/24 16:20 Urine Nitrite Negative (Negative) 12/12/24 16:20 Urine Bilirubin 2+ (Negative) H 12/12/24 16:20 Urine Urobilinogen Negative (Negative) 12/12/24 16:20 Ur Leukocyte Esterase 1+ (Negative) H 12/12/24 16:20 Urine WBC (Auto) 0-5 /hpf (0-5) 12/12/24 16:20 Urine RBC (Auto) 0-2 /hpf (0-2) 12/12/24 16:20 U Hyaline Cast (Auto) 3-5 /lpf (0-2) H 12/12/24 16:20 U Epithel Cells (Auto) 0-2 /hpf (0-2) 12/12/24 16:20 Urine Bacteria (Auto) None Seen (None Seen) 12/12/24 16:20 Urine Comment 12/12/24 16:20 Impressions Abdomen/Pelvis CT 12/12/24 13:56 EXAMINATION: CT of the abdomen and pelvis performed after the administration of IV and oral contrast TECHNIQUE: Helical CT images from the lung bases through the symphysis pubis were obtained with contrast. Coronal and sagittal reformatted images were generated at a workstation for further assessment. Dose reduction techniques were achieved by using automatic exposure control and/or adjustment of mA and/or kV according to patient size and/or use of iterative reconstruction technique. COMPARISON: 12/10/2024 HISTORY: Abdominal pain FINDINGS: Lower chest: No consolidation. No pleural effusion or pneumothorax. Diffuse fibrotic changes. Liver: No suspicious liver lesions. Portal veins appear patent. Gallbladder: No gallstones. No evidence of acute cholecystitis. Spleen: Normal size. Pancreas: No suspicious pancreatic lesions. The pancreatic duct is not dilated. Adrenal glands: No adrenal nodules. Kidneys: No hydronephrosis or obstructing renal stones. Bladder / Pelvic organs: Unremarkable. Bowel: Diffuse, markedly large colonic stool burden mixed with fluid, as well as gaseous distention, significantly increased from prior. There is again an area of transition at the junction of the descending and sigmoid colon, where there is a prominent area of desiccated stool, and the large bowel distal to this area appears decompressed. The large bowel distal to this area also demonstrates wall thickening as on prior. New free fluid appears to surround the areas of large bowel, just proximal to this area of stool resulting in a blockade. Lymph nodes: No retroperitoneal, mesenteric, or pelvic lymphadenopathy. Peritoneum / Retroperitoneum: No free fluid or air within the abdomen. Vessels: No infrarenal aortic aneurysm. Bones and soft tissues: No suspicious lesion in the bones. IMPRESSION: Marked colonic stool mixed with fluid as well as gaseous distention, is significantly increased from prior. There is again an area of apparent blockade due to a ball of desiccated stool at the junction of the descending and sigmoid colon. Proximal to this area free fluid surrounds the large bowel, suggesting associated colitis. Wall thickening of the large bowel distal to this area is again seen. Electronically signed by David Cortes 12-12-2024 6:46 PM Chest X-Ray 12/12/24 16:37 Chest radiograph, one view History: Sepsis Comparison: None Findings: Single AP view of the chest performed. No focal consolidation or pleural effusion. No pneumothorax. The cardiomediastinal silhouette is within normal limits. Normal pulmonary vascularity. No evidence for lymphadenopathy. No visualized bony or soft tissue abnormality. Impression: Normal chest radiograph Electronically signed by David Cortes 12-12-2024 5:16 PM Code Status & VTE Plan VTE Prophylaxis Plan VTE Prophylaxis will be ordered: Yes PG Care Time/CCT Total # of Minutes Spent Total Time Spent with Patient: Total time spent is greater than 50% in coordination of care (as documented) at patient's floor/unit and/or counseling patient: Coding Level of Care Code 58766 INT INP/OBS CARE 3/75MIN Diagnoses Fecal impaction K56.41 Colitis K52.9 Primary hypertension I10 Hypertension type: primary hypertension (3) Hypertension Hypertension type: primary hypertension Qualified Code(s): I10 - Essential (primary) hypertension
[2024-12-12] MEDS: MoRPHine SULFATE 4 MG/ML 1 ML CARP\\VIAL IV PRN (20:26)
[2024-12-12] MEDS: ONDANSETRON INJ 2 MG/ML 2 ML VIAL IV PRN (20:27)
[2024-12-12] MEDS ORDERED: ONDANSETRON INJ 2 MG/ML 2 ML VIAL IV PRN (22:06)
[2024-12-12] MEDS ORDERED: ALBUTEROL HFA 8 GM INHALER INH PRN (22:06)
[2024-12-12] MEDS: LACTATED RINGER'S 1,000 ML IV SCH (23:16)
[2024-12-12] MEDS: ACETAMINOPHEN 325 MG TAB PO PRN (23:22)
[2024-12-13] MEDS: PIPERACILLIN/TAZOBACTAM 4.5 GM/100 ML BAG IV SCH (01:01)
[2024-12-13 04:44] LABS: Hematocrit (blood only) 33.9 % (37.0-47.0); Hemoglobin 11.6 g/dl (12.0-16.0); Mean Corpuscular Hemoglobin 31.3 pg (25.0-34.0); Mean Corpuscular Volume 91.4 fL (80.0-100.0); Platelet Count 230 K/uL (130-400); RDW Standard Deviation 46.4 fL (36.4-46.3); Red Blood Count 3.71 M/uL (4.20-5.40); White Blood Count 29.10 K/ul (4.8-10.8)
[2024-12-13 05:01] LABS: Anion Gap 11.0 (3-11); Blood Urea Nitrogen 31.0 mg/dl (6-23); Calcium 8.3 mg/dl (8.6-10.3); Carbon Dioxide 23.0 mmol/L (21-32); Chloride 100.0 mmol/L (98-107); Creatinine Clr Calc Pharmacy 44.8 ml/min; Glucose 172.0 mg/dl (70-99(Fasting)); Potassium 3.1 mmol/L (3.5-5.1); Sodium 134.0 mmol/L (136-145)
[2024-12-13 05:29] LABS: Immature Granulocytes # (auto) 0.35 K/uL (0.01-0.20); Immature Granulocytes % (auto) 1.2 %; RBC Morphology Unremarkable
--- NOTE | 2024-12-13 07:38 | Hospitalist Progress Note ---
Date of Service December 13, 2024 Assessment & Plan (1) Stercoral colitis: (2) Slow transit constipation: (3) Fecal impaction: (4) Neutrophilic leukocytosis: Plan In summary this is a 74-year-old female who presents with stercoral colitis Patient was evaluated by gastroenterology who had concerns of possible acute abdomen, with subsequent plain films obtained and general surgery consulted; plain films, by my interpretation pending radiologist interpretation do not show any evidence of free air within the abdomen but a persistent colonic dilatation; several enemas were attempted this morning however the patient was unable to retain them for a period that would allow for therapeutic effect Gastroenterology consulted; recommending regular intake of MiraLAX, tapwater and mineral oil enemas General Surgery consulted The patient did present with tachycardia, significant leukocytosis; however with a normal procalcitonin there is no evidence for bacterial infection at this time, there is no indication for antibiotic therapy at this stage in her hospitalization Admission and Anticipated Discharge Date Admission Date: December 12, 2024 Subjective Ms. Marr is a 74-year-old female whose active medical conditions include chronic respiratory failure due to emphysema with hypoxia and previous lobectomy, chronic slow transit constipation, CKD stage IIIa, hyperlipidemia who presented to the [facility] on 12/12 due to progressive abdominal pain after being assessed at the same facility on 12/10 with similar complaints. She was subsequently admitted due to stercoral colitis with significant colonic distention. Patient remains without a bowel movement this morning; she has intermittent episodes of significant pain however these do come and go without any medical intervention. She denies any fevers, chills, nausea, vomiting, flatus, chest pain or discomfort, shortness of breath, pleuritic chest pain. Review of Systems Review of Systems: Review of constitutional, cardiovascular, pulmonary, gastrointestinal systems was unremarkable except for pertinent positive and negative findings discussed above Physical Exam Physical Exam: General: Elderly female in mild acute distress due to abdominal pain Vital Signs: Reviewed HEENT: Tacky mucous membranes Pulmonary: Symmetric chest wall excursion without restriction; diminished air movement in the bilateral posterior basilar segments Cardiovascular: Regular rate and rhythm without murmurs, rubs, or gallops; S1 and S2 normal; right radial pulse 2+ Gastrointestinal: Distended, tense; significantly tender to superficial palpation involving the left lower, left upper, epigastrium, and periumbilical areas; cutting machine tender decorative to slightly deeper palpation in the right upper and lower quadrants; there is tenderness with percussion throughout these areas as well but without acute peritoneal findings; bowel sounds are of low-frequency and high pitch Results & Data Results & Data Vital Signs (Past 12 Hours) Vital Signs Pulse Pulse Resp BP Pulse Ox O2 Del Method O2 Flow Rate 12/13/24 06:58 79 12/13/24 06:15 84 20 128/69 100 Room Air 12/13/24 05:11 74 18 120/81 94 Nasal Cannula 2 12/13/24 03:46 72 12/13/24 03:25 71 20 152/72 H 96 Room Air 12/12/24 23:41 77 20 137/85 95 Room Air Laboratory Results Leukocytosis of 29.10 with a neutrophilic predominance; procalcitonin of 0.14 Urinalysis is unremarkable PG Care Time/CCT Total # of Minutes Spent Total Time Spent with Patient: Total time spent is greater than 50% in coordination of care (as documented) at patient's floor/unit and/or counseling patient: Coding Level of Care Code 93412 SUB INP/OBS CARE 2/35MIN Diagnoses Stercoral colitis K52.89 Slow transit constipation K59.01 Fecal impaction K56.41 Neutrophilic leukocytosis D72.828
--- NOTE | 2024-12-13 08:54 | Gastrointestinal Consultation ---
Date of Consultation December 13, 2024 Assessment & Plan (1) Fecal impaction: (2) Intermittent abdominal pain: Plan 74yowf with h/o GERD, DL, Dypshagia, CKD, HTN, chronic constipation, former smoker with chronic hypoxic respiratory failure on 2L supplemental O2qHS presenting with abdominal pain and obstipation. CT 12/12/24 revealed significant gaseous distention and fecal impaction with possible associated colitis. No diarrhea, blood or weight loss. No previous colonoscopy. Passed two small stools with an enema but having now worsening abdominal pain, distention and gaurding. (1) Fecal impaction with abdominal distention and guarding. Leukocytosis on 29k/ul. - Continue to work up source of infection. UA and CXR non-diagnostics. Blood cultures negative thus far. - Given progression of symptoms we'll hold off on further enema. - Make NPO, Check Abdominal series to measure fecal/distention colon and free air. - Consult General surgery - Appreciate their input. - Further recommendations to come with results. Over 40 minutes was spent in chart review, exam and documentation on date of service. Supervising Physician Co-Signing Physician Notes I saw and examined this patient with our nurse practitioner and agree with her assessment and plan. Patient with longstanding chronic constipation severe pulmonary disease leading to sedentary life. Presents with worsening constipation large stool volume on imaging. Other factors include unexplained leukocytosis. Will x-ray today showed stool in the colon in addition to a large amount of air. She has been receiving MiraLAX orally and enemas. I suspect she has a combination of a colonic ileus as well as constipation and large stool burden. Could have been precipitated by possible underlying infection in light of the leukocytosis as well as due to pain meds given to her on admission. Has been seen by surgery who does not feel she has any indication for surgical management at this time. She is not a good candidate for any sedation or endoscopic intervention at this time. Recommend avoiding any anticholinergics or narcotics. Agree with continuing with enemas. I generally prefer a mineral oil enema followed several hours by a tapwater enema as opposed to soapsuds enemas which have been associated with colonic irritation. I do the ileus on imaging I recommend having her lie predominantly on her right side which will help colonic air escape rectally. Continue with a infectious disease workup to identify any other precipitating factors. In addition maintain normal electrolytes especially potassium and magnesium. History of Present Illness Reason for Consultation: Fecal Impaction Attending Physician: Johan Colvin DO History of Present Illness 74yowf with h/o GERD, DL, Dypshagia, CKD, HTN, chronic constipation, former smoker with chronic hypoxic respiratory failure on 2L supplemental O2qHS presenting with abdominal pain and obstipation. She reports that she was visiting her daughter when she started to notice lower abdominal pain with waves of nausea. She's been able to eat and drink small amounts of food. Last solid meal was 2 days ago. She's passing small amounts of gas. Had two small stools over night after receiving soap suds enema. Patient was seen in the ER on 12/10/24 with these complaints. She had a CT of the abdomen with PO contrast which revealed an area of desiccated stool suggestive of chronic constipation with mild wall thickening of the decompressed rectum and sigmoid colon. She started on Senokot 2 tabs BID and Miralax hourly x 11 without relief or bowel movement. She then returned to [facility] ER on 12/12/24 for ongoing waves of discomfort. CT 12/12/24 revealed diffuse, markedly large colonic stool burden mixed with fluid, as well as gaseous distention, significantly increased from prior. There is again an area of transition at the junction of the descending and sigmoid colon, where there is a prominent area of desiccated stool, and the large bowel distal to this area appears decompressed. The large bowel distal to this area also demonstrates wall thickening as on prior. New free fluid appears to surround the areas of large bowel, just proximal to this area of stool resulting in a blockade. She denies any fevers, chills, vomiting, melena or hematochezia. No weight loss. Family history - No celiac, IBD or CRC. Social History - No alcohol or tobacco use. No drug use. Former smoker. Surgical History - Never has had colonoscopy. Had EGD in 2020, but desaturated so Colonoscopy was cancelled. H/O Lobectomy as treatment for Lung CA. Pertinent Diagnostics - CBC - Hgb 11.6, Hct 33.9, Plt 230, WBC 29k/ul, (Up from 8.66k/ul on 12/10/24), Neutrophil 25k/ul. CMP - BUN 31, Cr 1.02, Na 135, K 3.1 LFTs unremarkable except T-Bili 1.2 Lipase 9. UA - + Bilirubin, LE, No bacteria. CXR - No pneumonia. Blood cultures pending. Allergies Allergy/AdvReac Type Severity Reaction Status Date / Time No Known Allergies Allergy Verified 12/10/24 18:50 Home Medications Medication Instructions Recorded Confirmed Type inhalational spacing device #1 ea 02/13/20 12/12/24 Rx (Aerochamber MV spacer) cetirizine 10 mg tablet (Zyrtec) 10 mg PO HS PRN Allergy Symptoms 05/13/20 12/12/24 History cholecalciferol (vitamin D3) 125 125 mcg PO 4XWK 09/04/20 12/12/24 History mcg (5,000 unit) tablet (Vitamin D3) Oxygen Home #1 ea 09/09/21 12/12/24 Rx Portable Oxygen #1 ea 05/17/22 12/12/24 Rx albuterol 90 mcg-budesonide 80 2 inh inhalation BID PRN shortness 02/03/24 12/12/24 Rx mcg/actuation HFA aerosol inhaler of breath #10.7 grams (Airsupra) albuterol sulfate 90 mcg/actuation 2 inh inhalation QID PRN shortness 04/30/24 12/12/24 Rx aerosol inhaler of breath or wheezing #8.5 grams olmesartan 20 mg tablet 20 mg PO DAILY 10/16/24 12/12/24 History pantoprazole 40 mg tablet,delayed 40 mg PO DAILY 10/16/24 12/12/24 History release tiotropium 2.5 mcg-olodaterol 2.5 2 puff inhalation DAILY #4 grams 10/19/24 12/12/24 Rx mcg/actuation mist for inhalation (Stiolto Respimat) rosuvastatin 5 mg tablet (Crestor) 10 mg PO 3XWK 11/19/24 12/12/24 History cyanocobalamin (vitamin B-12) 2,500 mcg sublingual DAILY 12/10/24 12/12/24 History 2,500 mcg sublingual tablet (Vitamin B-12) sennosides 8.6 mg-docusate sodium 1 - 2 tab-cap (1 - 2 x 8.6-50 mg) 12/10/24 12/12/24 Rx 50 mg tablet (Senokot-S) PO BID PRN constipation #60 tabs Patient History Medical History Recurrent UTI History of tobacco abuse Preop pulmonary/respiratory exam COVID-19 02/2020. treated at [facility] inpatient. severe nausea and hypoxia 02/2020. using supplemental oxygen at home currently using 2lpm at rest, 3-4lpm n/c with exertion. oxygen level with exertion can drop to low 80's% but will come up to 92-93% with rest and the use of oxygen. following with PCP. Lung cancer Stage IIIa non-small cell lung cancer s/p left upper lobectomy, plan for starting chemo 11/27 On home oxygen therapy 2L O2 HS + PRN via n/c Schatzki's ring Found during 05/2020 EGD, unable to dilate at time History of COVID-19 Dx 02/2020 > symptoms at time: severe nausea and hypoxia, treated at [facility] > symptoms improved but residual need for home oxygen supplementation Pulmonary nodule Abnormal LFTs Acute respiratory failure with hypoxia Pneumonia due to COVID-19 virus Surgical History History of biopsy Endobronchial ultrasound guided biopsy (09/12/20): LMA #4 igel at [facility] History of anesthesia reaction Per anesthesia progress note (05/19/20; [facility]): "during egd patient desaturated to 60%, but recovered on her own. It was decided to not attempt the colonoscopy because of the fragile nature of the pt lungs" > Pt subsequently had endobronchial ultrasound guided biopsy under general anesthesia at [facility] with no noted anesthesia complications History of lobectomy of lung MAGDALENE History of esophagogastroduodenoscopy (EGD) History of bilateral tubal ligation Family History Mother FHx: pancreatic cancer Aunt FHx: colon cancer Other No family history of adverse response to anesthesia Social History Smoking Status: Former smoker Tobacco Type: Cigarettes Age Started Using Tobacco: 11; Age Quit Using Tobacco: 41; packs per day: 1.5; Second Hand Exposure: Yes (hx); Do You Dip or Chew Tobacco: No; Hx Alcohol Use: No Hx Substance Use: No Preferred Language: Gambian Communication Ability: Effective Visual Impairment: No Limitations Hearing Ability: Normal Caddy Packer Required: No Beliefs That Will Affect Care: None marital status: Current Living Situation: Spouse current occupational status: retired How many Children do You have: 3 Feels Safe at Home: Yes Diet: regular caffeine: Yes Dental Care, Regularly: Yes Physical Activity Frequency: Daily Seatbelt Use: always Sunscreen Use: Yes Assistive Devices: Denture - Upper, Denture - Lower and Oxygen - Continuous Review of Systems Review of Systems: See HPI Physical Exam Physical Exam: Constitutional: NAD. Alert. Answering questions appropriately. Respiratory: Breathing is even, non-labored. Lungs wei are clear to auscultation anteriorly. Cardiovascular: Regular Rate and Rhythm, no murmurs, rubs or gallops appreciated. Gastrointestinal (Abdomen): Normoactive bowel sounds x4. Moderately distended with guarding in all quadrants. 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 Rectal externally unremarkable. Tone intact. No internal masses or fecal material palpated. No stool upon withdrawal. No blood noted. Musculoskeletal: Lying in bed comfortably. No peripheral edema. Results & Data Vital Signs (Past 12 Hours) Vital Signs Pulse Pulse Resp BP Pulse Ox O2 Del Method O2 Flow Rate 12/13/24 08:39 79 18 124/68 93 Room Air 12/13/24 06:58 79 12/13/24 06:15 84 20 128/69 100 Room Air 12/13/24 05:11 74 18 120/81 94 Nasal Cannula 2 12/13/24 03:46 72 12/13/24 03:25 71 20 152/72 H 96 Room Air 12/12/24 23:41 77 20 137/85 95 Room Air Laboratory Results Laboratory Results - last 48 hr 12/12/24 12/12/24 12/12/24 16:01 16:12 16:20 WBC 29.74 H RBC 4.14 L Hgb 13.2 Hct 37.7 MCV 91.1 MCH 31.9 MCHC 35.0 RDW Std Deviation 45.4 RDW Coeff of Annetta 13.5 Plt Count 247 MPV 10.0 Immature Gran % (Auto) 0.8 Neut % (Auto) 88.7 Lymph % (Auto) 3.2 [place] % (Auto) 7.1 Eos % (Auto) 0.0 Baso % (Auto) 0.2 Neut # (Auto) 26.38 H Lymph # (Auto) 0.95 L [place] # (Auto) 2.10 H Eos # (Auto) 0.00 Baso # (Auto) 0.07 Immature Gran # (Auto) 0.24 H RBC Morphology Unremarkable Sodium 135 L Potassium 3.6 Chloride 100 Carbon Dioxide 22 Anion Gap 13 H BUN 28 H Creatinine 0.80 Est Cr Clr Drug Dosing Not Reportable eGFR 76.31 BUN/Creatinine Ratio 35.0 H Glucose 159 H Lactate 1.5 Calcium 8.6 Magnesium 2.8 H Total Bilirubin 1.2 H AST 20 ALT 18 Alkaline Phosphatase 75 Total Protein 7.0 Albumin 3.9 Globulin 3.1 Albumin/Globulin Ratio 1.3 Lipase 9 L Procalcitonin 0.14 TSH Urine Color Dark Yellow Urine Appearance Clear Urine pH 5.0 Ur Specific Luckey 1.034 H Urine Protein Trace H Urine Glucose (UA) Trace H Urine Ketones 1+ H Urine Blood Negative Urine Nitrite Negative Urine Bilirubin 2+ H Urine Urobilinogen Negative Ur Leukocyte Esterase 1+ H Urine WBC (Auto) 0-5 Urine RBC (Auto) 0-2 U Hyaline Cast (Auto) 3-5 H U Epithel Cells (Auto) 0-2 Urine Bacteria (Auto) None Seen Urine Comment Staphylococcus sp PCR mecA/C-Methicil Resis Gene Staph epidermidis (PCR) Bld Cult ID Panel PCR 12/12/24 12/13/24 12/13/24 18:02 03:59 14:40 WBC 29.10 H RBC 3.71 L Hgb 11.6 L Hct 33.9 L MCV 91.4 MCH 31.3 MCHC 34.2 RDW Std Deviation 46.4 H RDW Coeff of Annetta 13.8 Plt Count 230 MPV 9.9 Immature Gran % (Auto) 1.2 Neut % (Auto) 87.8 Lymph % (Auto) 3.8 [place] % (Auto) 6.9 Eos % (Auto) 0.0 Baso % (Auto) 0.3 Neut # (Auto) 25.54 H Lymph # (Auto) 1.12 L [place] # (Auto) 2.00 H Eos # (Auto) 0.00 Baso # (Auto) 0.09 Immature Gran # (Auto) 0.35 H RBC Morphology Unremarkable Sodium 134 L Potassium 3.1 L Chloride 100 Carbon Dioxide 23 Anion Gap 11 BUN 31 H Creatinine 1.02 Est Cr Clr Drug Dosing 44.8 eGFR 57.02 BUN/Creatinine Ratio 30.4 H Glucose 172 H Lactate 2.2 H* Calcium 8.3 L Magnesium Total Bilirubin AST ALT Alkaline Phosphatase Total Protein Albumin Globulin Albumin/Globulin Ratio Lipase Procalcitonin TSH 4.595 H Urine Color Urine Appearance Urine pH Ur Specific [place] Urine Protein Urine Glucose (UA) Urine Ketones Urine Blood Urine Nitrite Urine Bilirubin Urine Urobilinogen Ur Leukocyte Esterase Urine WBC (Auto) Urine RBC (Auto) U Hyaline Cast (Auto) U Epithel Cells (Auto) Urine Bacteria (Auto) Urine Comment Staphylococcus sp PCR DETECTED A mecA/C-Methicil Resis Gene DETECTED A Staph epidermidis (PCR) DETECTED A Bld Cult ID Panel PCR See PCR Comment PG Care Time/CCT Total # of Minutes Spent Total Time Spent with Patient: Total time spent is greater than 50% in coordination of care (as documented) at patient's floor/unit and/or counseling patient: Coding Level of Care Code 58511 IN/OBS CONSULT LVL 4,60M Diagnoses Fecal impaction K56.41 Intermittent abdominal pain R10.9
[2024-12-13] MEDS ORDERED: MINERAL OIL ENEMA 133 ML BTL PR SCH (09:00)
[2024-12-13] MEDS: POLYETHYLENE (MIRALAX) 17 GM PACK PO SCH ×2 (09:19→09:44)
[2024-12-13] MEDS: VALSARTAN 80 MG TAB PO SCH (09:45)
[2024-12-13] MEDS: CYANOCOBALAMIN (B-12) 2,500 MCG TABLET SL SCH (09:45)
[2024-12-13] MEDS: UMECLIDINIUM/VILANTEROL 62.5/25MCG 7 PUFFS/INHALER INH SCH (09:45)
--- NOTE | 2024-12-13 09:57 | Electrocardiogram Report ---
Test Reason : Blood Pressure : */* mmHG Vent. Rate : 74 BPM Atrial Rate : 74 BPM P-R Int : 164 ms QRS Dur : 82 ms QT Int : 372 ms P-R-T Axes : 38 -38 56 degrees QTcB Int : 412 ms Normal sinus rhythm Left axis deviation Anterior infarct (cited on or before 13-Aug-2022) Abnormal ECG When compared with ECG of 10-Dec-2024 16:38, No significant change was found Confirmed by Matias Cerda ([id number]) on 12/13/2024 9:56:51 AM Referred By: Confirmed By: Matias Cerda
[2024-12-13] MEDS: MINERAL OIL ENEMA 133 ML BTL PR STA (10:13)
--- NOTE | 2024-12-13 11:26 | XRay Report ---
XR abdomen 2V w PA chest CLINICAL HISTORY: Assess for free air/measure bowel/stool diameter COMPARISON STUDY: 12/12/2024 FINDINGS: CHEST: Stable chest port. Stable mild cardiomegaly without pulmonary vascular congestion. Stable mild stranding opacity at the left lung base. No new consolidation or pleural effusion. No pneumothorax. ABDOMEN: There is diffuse predominantly gaseous distention of the colon measuring up to 10 cm diamete r, grossly stable. There is mild to moderate retained stool. Focal stool distally in the descending c olon is grossly stable. No small bowel distention seen. No gross free air seen. IMPRESSION: 1. No acute findings seen in the chest. 2. Stable colonic distention. ACT 112: Negative or not required by law. Electronically signed by: Kam Fox M.D. 12/13/2024 11:24 AM
--- NOTE | 2024-12-13 12:55 | Surgery Consultation ---
Date of Consultation December 13, 2024 Assessment & Plan (1) Fecal impaction: (2) Stercoral colitis: Plan Patient is a 74-year-old female with a complicated past medical history including hypertension, hyperlipidemia, history of lung cancer with chronic hypoxic respiratory failure on home O2, GERD, and chronic kidney disease stage III, who has chronic constipation and has been experiencing significant amount of abdominal pain, over the last [address] evidence of stercoral colitis with fecal impaction causing a partial large bowel obstruction. CT shows significant fecal impaction and stercoral colitis, but no evidence of perforation, no free air, patient does not have any peritoneal signs but does have significant abdominal pain. We would like to hold off on surgery for now and recommend continuing with enemas with the hopes of relieving this blockage. Soapsuds enemas have been ordered every 4 hours until she has a bowel movement. general surgery will continue to follow for now. Supervising Physician Co-Signing Physician Notes Patient seen and examined, labs and imaging reviewed, agree with above. History of constipation, presented with increasing abdominal pain and failure to have bowel movement after several days. She was seen here for the same a few days ago. CT showed stercoral colitis without perforation or ischemia. She did have 2 small bowel movements with enemas. GI saw her today after one of her enemas and she was having increasing pain, and a repeat x-ray was performed. On exam she is afebrile with stable vitals. Her abdomen is soft, tender to palpation, no guarding or rebound. WBC 29, stable from yesterday, but up from a few days ago. CT scan personally viewed and interpreted agree with the assessment of a large stool ball near the rectosigmoid junction causing partial obstruction with distention beyond this. There is some mild thickening colon wall thickening in this area, but no ischemia or perforation identified. No surgical intervention indicated at this time. Will proceed with multiple enemas. GI could consider endoscopic disimpaction if they felt this is appropriate. From a surgical standpoint although we could offer is a Delcid's procedure. Surgical follow, call with questions or concerns. History of Present Illness Reason for Consultation: Abdominal pain, stercoral colitis, fecal impaction Attending Physician: Johan Colvin, DO History of Present Illness Patient is a 74-year-old female with a past medical history significant for hypertension, hyperlipidemia, lung cancer status post left upper lobe lobectomy, chronic hypoxemic respiratory failure on oxygen with exercise and at night, emphysema, GERD, chronic constipation, CKD stage III, and vitamin B 12 deficiency, who presents to the emergency department with complaints of abdominal pain and nausea x 6 days. Patient states that on Tuesday, 6 days ago, she began experiencing generalized and diffuse abdominal pain with bloating as well as nausea but no vomiting. She states that in the last month she has had 2 other episodes of similar abdominal pain that have resolved after 24 hours. Unfortunately, the patient continued to experience this pain over the next several days. She describes this as sharp and stabbing, moderate to severe in intensity, seems to come in waves but there are no obvious aggravating or alleviating factors. She states that the pain does not appear to be related with any food or oral intake or any specific positions. She has tried Tylenol in the past for this pain and has had some relief in this, however in the last 24 to 48 hours the pain has been very severe so she came to the emergency department for evaluation. Patient states that she came to the ER 2 days ago for similar complaints, although not as severe pain. She was diagnosed with constipation and instructed to take miralax and senna Q1H until she had a BM. She has followed these instructions and states that she has passed some liquid stool and small stool balls, but no formed stool. Patient was evaluated in the emergency department and was hemodynamically stable. Her exam was significant for a moderately distended abdomen that was tympanic to percussion and diffusely tender to palpation, but no overt peritoneal signs. Her labs were significant for an elevated white blood cell count of 29.7 and a lactic acid of 1.5. She had a CAT scan of the abdomen pelvis that showed findings of diffusely dilated proximal colon with a large colonic stool burden and an area of transition at the junction of the descending and sigmoid colon with a large stool ball noted. The distal large bowel was collapsed after this large stool ball, and there appeared to be new free fluid in the pelvis. She received an enema in the ER, however had increased abdominal pain after this. GI was consulted and recommended conservative treatment with n.p.o. and recommended a general surgery consult. Allergies Allergy/AdvReac Type Severity Reaction Status Date / Time No Known Allergies Allergy Verified 12/10/24 18:50 Home Medications Medication Instructions Recorded Confirmed Type inhalational spacing device #1 ea 02/13/20 12/12/24 Rx (Aerochamber MV spacer) cetirizine 10 mg tablet (Zyrtec) 10 mg PO HS PRN Allergy Symptoms 05/13/20 12/12/24 History cholecalciferol (vitamin D3) 125 125 mcg PO 4XWK 09/04/20 12/12/24 History mcg (5,000 unit) tablet (Vitamin D3) Oxygen Home #1 ea 09/09/21 12/12/24 Rx Portable Oxygen #1 ea 05/17/22 12/12/24 Rx albuterol 90 mcg-budesonide 80 2 inh inhalation BID PRN shortness 02/03/24 12/12/24 Rx mcg/actuation HFA aerosol inhaler of breath #10.7 grams (Airsupra) albuterol sulfate 90 mcg/actuation 2 inh inhalation QID PRN shortness 04/30/24 12/12/24 Rx aerosol inhaler of breath or wheezing #8.5 grams olmesartan 20 mg tablet 20 mg PO DAILY 10/16/24 12/12/24 History pantoprazole 40 mg tablet,delayed 40 mg PO DAILY 10/16/24 12/12/24 History release tiotropium 2.5 mcg-olodaterol 2.5 2 puff inhalation DAILY #4 grams 10/19/24 12/12/24 Rx mcg/actuation mist for inhalation (Stiolto Respimat) rosuvastatin 5 mg tablet (Crestor) 10 mg PO 3XWK 11/19/24 12/12/24 History cyanocobalamin (vitamin B-12) 2,500 mcg sublingual DAILY 12/10/24 12/12/24 History 2,500 mcg sublingual tablet (Vitamin B-12) sennosides 8.6 mg-docusate sodium 1 - 2 tab-cap (1 - 2 x 8.6-50 mg) 12/10/24 12/12/24 Rx 50 mg tablet (Senokot-S) PO BID PRN constipation #60 tabs Patient History Medical History Recurrent UTI History of tobacco abuse Preop pulmonary/respiratory exam COVID-19 02/2020. treated at [facility] inpatient. severe nausea and hypoxia 02/2020. using supplemental oxygen at home currently using 2lpm at rest, 3-4lpm n/c with exertion. oxygen level with exertion can drop to low 80's% but will come up to 92-93% with rest and the use of oxygen. following with PCP. Lung cancer Stage IIIa non-small cell lung cancer s/p left upper lobectomy, plan for starting chemo 11/27 On home oxygen therapy 2L O2 HS + PRN via n/c Schatzki's ring Found during 05/2020 EGD, unable to dilate at time History of COVID-19 Dx 02/2020 > symptoms at time: severe nausea and hypoxia, treated at [facility] > symptoms improved but residual need for home oxygen supplementation Pulmonary nodule Abnormal LFTs Acute respiratory failure with hypoxia Pneumonia due to COVID-19 virus Surgical History History of biopsy Endobronchial ultrasound guided biopsy (09/12/20): LMA #4 igel at [facility] History of anesthesia reaction Per anesthesia progress note (05/19/20; [facility]): "during egd patient desaturated to 60%, but recovered on her own. It was decided to not attempt the colonoscopy because of the fragile nature of the pt lungs" > Pt subsequently had endobronchial ultrasound guided biopsy under general anesthesia at [facility] with no noted anesthesia complications History of lobectomy of lung MAGDALENE History of esophagogastroduodenoscopy (EGD) History of bilateral tubal ligation Family History Mother FHx: pancreatic cancer Aunt FHx: colon cancer Other No family history of adverse response to anesthesia Social History Smoking Status: Former smoker Tobacco Type: Cigarettes Age Started Using Tobacco: 11; Age Quit Using Tobacco: 41; packs per day: 1.5; Second Hand Exposure: Yes (hx); Do You Dip or Chew Tobacco: No; Hx Alcohol Use: No Hx Substance Use: No Preferred Language: Pakistani Communication Ability: Effective Visual Impairment: No Limitations Hearing Ability: Normal Education Faculty Member Required: No Beliefs That Will Affect Care: None marital status: Current Living Situation: Spouse current occupational status: retired How many Children do You have: 3 Feels Safe at Home: Yes Diet: regular caffeine: Yes Dental Care, Regularly: Yes Physical Activity Frequency: Daily Seatbelt Use: always Sunscreen Use: Yes Assistive Devices: Oxygen - Continuous Review of Systems Review of Systems: All systems reviewed & are unremarkable except as noted in HPI & below Physical Exam Physical Exam: Gen: Awake and alert, resting comfortably in bed in NAD CV: RRR PULM: non-labored breathing Abd: Abd soft, moderately distended, tympanic to percussion, diffusely tender to palpation, but no guarding and no rigidity ext: no edema to bilateral lower ext, SCDs in place, non-tender, feet warm and well perfused Results & Data Vital Signs (Past 12 Hours) Vital Signs Pulse Pulse Resp BP Pulse Ox O2 Del Method O2 Flow Rate 12/13/24 11:45 80 16 141/73 H 96 Nasal Cannula 2 12/13/24 08:39 79 18 124/68 93 Room Air 12/13/24 06:58 79 12/13/24 06:15 84 20 128/69 100 Room Air 12/13/24 05:11 74 18 120/81 94 Nasal Cannula 2 12/13/24 03:46 72 12/13/24 03:25 71 20 152/72 H 96 Room Air PG Care Time/CCT Total # of Minutes Spent Total Time Spent with Patient: Total time spent is greater than 50% in coordination of care (as documented) at patient's floor/unit and/or counseling patient: [place] [address] IN/OBS CONSULT LVL 3,45M Patient Type New Medical Decision Making Moderate Complexity Diagnoses Fecal impaction K56.41 Stercoral colitis K52.89
[2024-12-13 15:33] LABS: A calco-baum cmplx NotReported Not Detected (NotDetected); Bact fragilis Not Reported Not Detected (NotDetected); Blood Culture Id Panel See PCR Comment (NotDetected); C auris Not Reported Not Detected (NotDetected); Calbicans Not Reported Not Detected (NotDetected); Candida glabrata Not Reported Not Detected (NotDetected); Candida krusei Not Reported Not Detected (NotDetected); Cneoformans/gatti Not Reported Not Detected (NotDetected); Cparapsilosis Not Reported Not Detected (NotDetected); Ctropicalis Not Reported Not Detected (NotDetected); E cloacae compx Not Reported Not Detected (NotDetected); Efaecalis Not Reported Not Detected (NotDetected); Efaecium Not Reported Not Detected (NotDetected); Enterobacterales Not Reported Not Detected (NotDetected); Escherichia coli Not Reported Not Detected (NotDetected); H influenzae Not Reported Not Detected (NotDetected); K aerogenes Not Reported Not Detected (NotDetected); Koxytoca Not Reported Not Detected (NotDetected); Kpneumoniae grp Not Reported Not Detected (NotDetected); Lmonocyt Not Reported Not Detected (NotDetected); N meningitidis Not Reported Not Detected (NotDetected); P aeruginosa Not Reported Not Detected (NotDetected); Proteus spp Not Reported Not Detected (NotDetected); Salmonella spp Not Reported Not Detected (NotDetected); Staph lugdunensis Not Reported Not Detected (NotDetected); Staph spp. Not Reported DETECTED (NotDetected); Staphaureus Not Reported Not Detected (NotDetected); Staphepi Not Reported DETECTED (NotDetected); Stenmaltophilia Not Reported Not Detected (NotDetected); Strep agal(GrpB) Not Reported Not Detected (NotDetected); Strep pneum Not Reported Not Detected (NotDetected); Strep pyog (GrpA) Not Reported Not Detected (NotDetected); Strep spp Not Reported Not Detected (NotDetected); mecAC Resistant Gene DETECTED (NotDetected)
[2024-12-13 15:45] LABS: Staphylococcus spp. DETECTED (NotDetected)
[2024-12-13 15:46] LABS: Staphylococcus epidermidis DETECTED (NotDetected)
[2024-12-13 15:56] LABS: Thyroid Stimulating Hormone 4.595 uIu/ml (0.300-4.500)
--- NOTE | 2024-12-13 16:31 | Communication Note ---
Date of Service: December 13, 2024 Contacted by nursing staff regarding lactate measure and isolated positive blood culture with PCR suggesting S. epidermididis. At this time, even with the patient's leukocytosis, they have no additional findings either on exam or laboratory assessment concerning for an active infection; a normal procalcitonin measure is very reassuring that there is no acute bacterial process at play. Suspect that this leukocytosis is reactive to her ongoing stercoral colitis; there is no indication for antibiotics at this time. The patient's blood culture is likely a contaminant given the species that is present and no evidence of a source of infection that would typically result in a staphylococcal epidermidis bacteremia. The patient's lactic acidosis is likely consequential poor oral intake and volume loss in the setting of their constipation; continue with volume resuscitation and monitor daily lab work. Continue to monitor vital signs and clinical assessment to guide any further diagnostic testing and treatment
[2024-12-13 16:32] LABS: T4 Free Thyroxine 0.93 ng/dl (0.61-1.60)
[2024-12-13] MEDS: LACTATED RINGER'S 1,000 ML IV SCH (16:36)
[2024-12-13] MEDS ORDERED: Nursing to Pharmacy Communication SCH (16:45)
--- NOTE | 2024-12-14 07:43 | Hospitalist Progress Note ---
Date of Service December 14, 2024 Assessment & Plan (1) Stercoral colitis: (2) Slow transit constipation: (3) Fecal impaction: (4) Neutrophilic leukocytosis: Plan In summary this is a 74-year-old female who presents with stercoral colitis Patient remains admitted for stercoral colitis, now having successfully passed stool; remains without infectious findings; orders by both gastroenterology and general surgery for management, though appreciated, are causing some confusion regarding medical management from nursing staff - Administer one time milk and molasses enema, minimizing iatrogenic irritation, and providing lubrication to reduce subsequent abrasive injury with continued stool passage - Continue with regularly scheduled Miralax - Continue with bisacodyl 5 mg p.o. at bedtime - Encourage regular ambulation to facilitate intestinal peristalsis Gastroenterology consulted; recommending regular intake of MiraLAX, tapwater and mineral oil enemas General Surgery consulted; recommending soap jael enemas The patient did present with tachycardia, significant leukocytosis; however with a normal procalcitonin there is no evidence for bacterial infection at this time, there is no indication for antibiotic therapy at this stage in her hospitalization Admission and Anticipated Discharge Date Admission Date: December 12, 2024 Subjective Ms. Marr is a 74-year-old female whose active medical conditions include chronic respiratory failure due to emphysema with hypoxia and previous lobectomy, chronic slow transit constipation, CKD stage IIIa, hyperlipidemia who presented to the [facility] on 12/12 due to progressive abdominal pain after being assessed at the same facility on 12/10 with similar complaints. She was subsequently admitted due to stercoral colitis with significant colonic distention. Patient was able to successfully pass stool overnight; no other acute overnight events, pain is much improved today Review of Systems Review of Systems: Review of constitutional, cardiovascular, pulmonary, gastrointestinal systems was unremarkable except for pertinent positive and negative findings discussed above Physical Exam Physical Exam: General: Elderly female in mild acute distress due to abdominal pain Vital Signs: Reviewed HEENT: Tacky mucous membranes Pulmonary: Symmetric chest wall excursion without restriction; diminished air movement in the bilateral posterior basilar segments Cardiovascular: Regular rate and rhythm without murmurs, rubs, or gallops; S1 and S2 normal; right radial pulse 2+ Gastrointestinal: Distended, soft, with voluntary guarding; less tender on exam compared to 12/13 with superficial palpation involving the left lower, left upper, epigastrium, and periumbilical areas; no longer tender to percussion; without acute peritoneal findings; bowel sounds are of low-frequency and high pitch Results & Data Results & Data Vital Signs (Past 12 Hours) Vital Signs Temp Pulse Resp BP Pulse Ox O2 Del Method O2 Flow Rate 12/13/24 23:20 37.1 C 82 16 118/66 97 Room Air 12/13/24 21:00 Nasal Cannula 2 PG Care Time/CCT Total # of Minutes Spent Total Time Spent with Patient: Total time spent is greater than 50% in coordination of care (as documented) at patient's floor/unit and/or counseling patient: Coding Level of Care Code 04954 SUB INP/OBS CARE 2/35MIN Diagnoses Stercoral colitis K52.89 Slow transit constipation K59.01 Fecal impaction K56.41 Neutrophilic leukocytosis D72.828
[2024-12-14 08:05] LABS: Hematocrit (blood only) 29.3 % (37.0-47.0); Hemoglobin 10.2 g/dl (12.0-16.0); Immature Granulocytes # (auto) 0.26 K/uL (0.01-0.20); Immature Granulocytes % (auto) 1.4 %; Mean Corpuscular Hemoglobin 32.0 pg (25.0-34.0); Mean Corpuscular Volume 91.8 fL (80.0-100.0); Platelet Count 181 K/uL (130-400); RDW Standard Deviation 46.5 fL (36.4-46.3); Red Blood Count 3.19 M/uL (4.20-5.40); White Blood Count 18.50 K/ul (4.8-10.8)
--- NOTE | 2024-12-14 08:23 | Gastroenterology Progress Note ---
Date of Service December 14, 2024 Assessment & Plan (1) Stercoral colitis: (2) Fecal impaction: Plan 74yowf with h/o GERD, DL, Dysphagia, CKD, HTN, chronic constipation, former smoker with chronic hypoxic respiratory failure on 2L supplemental O2qHS presenting with abdominal pain and obstipation. CT 12/12/24 revealed significant gaseous distention and fecal impaction with possible associated colitis. No diarrhea, blood or weight loss. No previous colonoscopy. Has been receiving Soap Suds Enemas (1) Fecal impaction and stercoral colitis on CT scan. Leukocytosis down trending from 29k/ul to 18k/ul off of antibiotics. Procalcitonin and lactate normal. - Abdominal pain is improving in severity. Passed two small hard stools with gas overnight. - Blood cultures + x 1 - thought to be contamination. WBC down trending off antibiotics. - May continue with Enemas. Prefer typically Mineral Oil enema x 1, Followed by tap water enemas as these can be less irritating in the setting of colitis. - Plan to update abdominal xrays today. If these show improvement may consider advancing diet to clear liquid. Admission and Anticipated Discharge Date Admission Date: December 12, 2024 Supervising Physician Co-Signing Physician Notes I saw and examined this patient with our nurse practitioner and agree with her assessment and plan. Clinically improved today less abdominal pain but still some distention. Has been having some bowel movements with enema therapy. CT scan of the abdomen and obstruction series today shows significant improvement in colonic distention and stool burden. Can advance patient to a clear liquid diet continue enema regimen preferably mineral oil alternating with tapwater enemas. Additionally can resume MiraLAX 17 g in 8 ounces of water 4 times daily. Will reassess after the weekend for possible colonoscopy early next week. Subjective 74yowf with h/o GERD, DL, Dysphagia, CKD, HTN, chronic constipation, former smoker with chronic hypoxic respiratory failure on 2L supplemental O2qHS presenting with abdominal pain and obstipation is seen today for daily follow up on GI rounds. We obtained an abdominal series with CXR yesterday that revealed stable gaseous distention and stool burden. No free air. General surgery consulted - No plans for surgical indication at this time given imaging results. Continue with routine enemas. She has been receiving soap suds enemas every 4 hours. Clinically she reports that she is feeling a little better today. She was able to pass a few small hard balls of stool. Abdominal pain continues to be colicky but decreased in severity. She remains NPO. She denies any fevers, chills, vomiting, melena or hematochezia. No weight loss. Family history - No celiac, IBD or CRC. Social History - No alcohol or tobacco use. No drug use. Former smoker. Surgical History - Never has had colonoscopy. Had EGD in 2020, but desaturated so Colonoscopy was cancelled. H/O Lobectomy as treatment for Lung CA. Pertinent Diagnostics - CBC - Hgb 10.2, Hct 29.3, Plt 181, WBC 18.5 (down from 29k/ul), Neutro 14.6 (down from 25k/ul) Lactate 1.8 CMP pending. Blood cultures - 1 bottle showing gram + clusters. Hospitalist reviewed. S. epidermidis. Suspected to be contamination. No antibiotics started. Review of Systems Review of Systems: See HPI Physical Exam Physical Exam: Seen by Dr. Blas at bedside. Constitutional: NAD. Alert. Answering questions appropriately. Respiratory: Breathing is even, non-labored. Lungs wei are clear to auscultation anteriorly. Cardiovascular: Regular Rate and Rhythm, no murmurs, rubs or gallops appreciated. Gastrointestinal (Abdomen): Normoactive bowel sounds x4, soft, mildly distended. Mild tenderness throughout. No guarding. Improved from yesterday. Musculoskeletal: No peripheral edema. Results & Data Results & Data Vital Signs (Past 12 Hours) Vital Signs Temp Pulse Resp BP Pulse Ox O2 Del Method O2 Flow Rate 12/14/24 07:59 98.6 F 86 16 110/67 92 Room Air 12/13/24 23:20 98.8 F 82 16 118/66 97 Room Air 12/13/24 21:00 Nasal Cannula 2 PG Care Time/CCT Total # of Minutes Spent Total Time Spent with Patient: Total time spent is greater than 50% in coordination of care (as documented) at patient's floor/unit and/or counseling patient: Coding Level of Care Code 24368 SUB INP/OBS CARE 3/50MIN Diagnoses Stercoral colitis K52.89 Fecal impaction K56.41
[2024-12-14 08:34] LABS: Anion Gap 8.0 (3-11); Blood Urea Nitrogen 27.0 mg/dl (6-23); Calcium 8.1 mg/dl (8.6-10.3); Carbon Dioxide 26.0 mmol/L (21-32); Chloride 102.0 mmol/L (98-107); Creatinine Clr Calc Pharmacy 58.6 ml/min; Glucose 101.0 mg/dl (70-99(Fasting)); Potassium 3.1 mmol/L (3.5-5.1); Sodium 136.0 mmol/L (136-145)
--- NOTE | 2024-12-14 08:57 | XRay Report ---
XR abdomen 2V w PA chest CLINICAL HISTORY: Assess for free air/fecal/bowel diameter COMPARISON STUDY: 12/13/2024 and 12/12/2024 FINDINGS: CHEST: Stable chest port. Stable mild cardiomegaly without pulmonary vascular congestion. Stable mild stranding opacity in the lung bases. No new consolidation or pleural effusion. No pneumothorax. ABDOMEN: There is moderate retained stool. There is mild distention of the left colon measuring up to 8 cm diameter, improved. No small bowel distention seen. No gross free air. IMPRESSION: Mild distention of the left colon, improved. ACT 112: Negative or not required by law. Electronically signed by: Kam Fox M.D. 12/14/2024 8:56 AM
--- NOTE | 2024-12-14 09:19 | CT Scan Report ---
CT OF THE ABDOMEN AND PELVIS WITHOUT CONTRAST CLINICAL HISTORY: eval stercoral colitis/stool ball COMPARISON STUDY: CT of the abdomen and pelvis December 12, 2024. Abdominal series December 14, 2024 a t 8:36 AM. TECHNIQUE: Axial images of the abdomen and pelvis were obtained without IV contrast. Images were revi ewed in the axial, sagittal, and coronal planes. Automated exposure control was utilized for the vamsi dy. A dose lowering technique was utilized adhering to the principles of ALARA. FINDINGS: No pneumatosis, free air or portal venous gas is present. Evaluation of the abdomen and pel vis is suboptimal on this unenhanced examination. Unenhanced images of the liver, spleen, adrenal gla nds, kidneys and pancreas are unremarkable. There is no biliary or pancreatic ductal dilatation. Mild gallbladder distention is unchanged. There is no lymphadenopathy. Trace ascites within the abdomen a nd a small amount of ascites within the pelvis has increased since prior CT. There is no evidence for a bowel obstruction. The amount of stool throughout the colon and associated colonic dilatation of s ignificantly improved since CT of December 12, 2024. Residual moderate amount of poorly formed stool p redominantly within the ascending and transverse colon is noted. Wall thickening of the splenic flexu re of the colon, descending colon and sigmoid colon has increased. In part, this is due to a decrease in colonic distention. Associated mesenteric stranding has slightly increased. No fluid collections are identified. Colonic diverticulosis. No evidence for acute diverticulitis. IMPRESSION: 1. Significant decrease in amount of stool and associated colonic dilatation since CT of December 12, 2024. 2. Increase in left colon wall thickening and pericolonic stranding. This favors stercoral colitis gi zahra the amount of stool shown on prior CT. In part, the increase in colonic wall thickening is due to decrease in distention however mesenteric stranding has increased. Therefore, if progressive abdomin al pain, short-term follow-up CT is recommended. No pneumatosis, free air or portal venous gas. No fl uid collections. 3. Trace abdominal and small amount of ascites within the pelvis, increased since prior CT. ACT 112: Negative or not required by law. Electronically signed by: Ashu Amaya M.D. 12/14/2024 9:17 AM
--- NOTE | 2024-12-14 09:44 | Surgery Progress Note ---
<Statement entered by Deborah Carbajal MD - 12/14/24 18:17> I independently saw the patient and I agree with the assessment and plan of care Date of Service December 14, 2024 Assessment & Plan (1) Stercoral colitis: Plan: Pt here w/ constipation and abdominal pain w/ concern for stercoral colitis on CT scan WBC 18 (29). vitals are stable Repeated CT scan without contrast today which showed decrease in amount of stool and colonic dilation, but increase in L colon wall thickening and pericolonic stranding concerning for stercoral colitis. no pneumatosis or free air seen She remains with moderate pain to palpation, but less pain at rest. + nausea Would continue enemas throughout today to continue to clear out stool Will continue to follow closely, but no plans for acute surgical intervention at this time, if deteriorates may have to consider colostomy Pt seen/examined with Dr. Carbajal Admission and Anticipated Discharge Date Admission Date: December 12, 2024 Subjective Pt feeling lousy but a bit better than yesterday. She has + nausea. She is passing liquid brown stool with some very small pieces of formed stool Physical Exam Physical Exam: awake/alert, no distress Gastrointestinal (Abdomen): Inspection/Auscultation: + abdomen distended (improving from yesterday, but remains distended) Percussion/Palpation: + abdomen tender (tender throughout abdomen w/ some guarding) and abdomen soft Results & Data Vital Signs (Past 12 Hours) Vital Signs Temp Pulse Resp BP Pulse Ox O2 Del Method 12/14/24 07:59 98.6 F 86 16 110/67 92 Room Air 12/13/24 23:20 98.8 F 82 16 118/66 97 Room Air PG Care Time/CCT Total # of Minutes Spent Total Time Spent with Patient: Total time spent is greater than 50% in coordination of care (as documented) at patient's floor/unit and/or counseling patient: Coding Level of Care Code 30423 SUB INP/OBS CARE 03/03MIN Diagnoses Stercoral colitis K52.89
[2024-12-14] MEDS: ROSUVASTATIN CALCIUM 10 MG TAB PO SCH (09:58)
[2024-12-14] MEDS: ACETAMINOPHEN 1,000 MG/100 ML VIAL IV SCH (10:17)
[2024-12-14] MEDS: POTASSIUM CHLORIDE CRTAB 20 MEQ TABCR PO SCH (11:23)
[2024-12-14] MEDS: PNEUMOCOCCAL VACCINE (PCV20) 20-VAL CONJ-DIP CRM/PF 0.5 ML SYR IM ONE (13:37)
[2024-12-14] MEDS: ONDANSETRON INJ 2 MG/ML 2 ML VIAL IV PRN (15:51)
[2024-12-14] MEDS: LACTATED RINGER'S 1,000 ML IV SCH (16:52)
--- NOTE | 2024-12-15 08:13 | Hospitalist Progress Note ---
Date of Service December 15, 2024 Assessment & Plan (1) Stercoral colitis: (2) Slow transit constipation: (3) Fecal impaction: (4) Neutrophilic leukocytosis: Plan In summary this is a 74-year-old female who presents with stercoral colitis #Stercoral colitis Patient remains admitted for stercoral colitis, now having successfully passed stool; remains without infectious findings - Continue with regularly scheduled Miralax - Continue with bisacodyl 5 mg p.o. at bedtime - Start Reglan 10 mg p.o. twice daily with additional 5 mg IV every 6 hours as needed for breakthrough nausea - Encourage regular ambulation to facilitate intestinal peristalsis Gastroenterology consulted; recommending regular intake of MiraLAX, tapwater and mineral oil enemas General Surgery consulted; recommending soap jael enemas The patient did present with tachycardia, significant leukocytosis; however with a normal procalcitonin there is no evidence for bacterial infection at this time, there is no indication for antibiotic therapy at this stage in her hospitalization; her leukocytosis continues to improve, suspect this may remain for many days as her inflammatory changes resolve The patient's plan of care was discussed with her daughter, Laurence, via telephone at bedside Admission and Anticipated Discharge Date Admission Date: December 12, 2024 Subjective Ms. Marr is a 74-year-old female whose active medical conditions include chronic respiratory failure due to emphysema with hypoxia and previous lobectomy, chronic slow transit constipation, CKD stage IIIa, hyperlipidemia who presented to the [facility] on 12/12 due to progressive abdominal pain after being assessed at the same facility on 12/10 with similar complaints. She was subsequently admitted due to stercoral colitis with significant colonic distention. No acute overnight events; continues to pass stool without difficulty; notes some positional incontinence and passage of liquid per rectum with flatus; clinically much improved. Noting some continued, but not prohibitory, nausea. Review of Systems Review of Systems: Review of constitutional, cardiovascular, pulmonary, gastrointestinal systems was unremarkable except for pertinent positive and negative findings discussed above Physical Exam Physical Exam: General: Elderly female in no acute distress Vital Signs: Reviewed HEENT: Moist mucous membranes Pulmonary: Symmetric chest wall excursion without restriction; diminished air movement in the bilateral posterior basilar segments Cardiovascular: Regular rate and rhythm without murmurs, rubs, or gallops; S1 and S2 normal; right radial pulse 2+ Gastrointestinal: Distended, soft, with voluntary guarding; tenderness continues to resolve on exam; without acute peritoneal findings; bowel sounds are of low- frequency and high pitch Results & Data Results & Data Vital Signs (Past 12 Hours) Vital Signs Temp Pulse Resp BP Pulse Ox O2 Del Method 12/15/24 07:51 37.1 C 69 17 127/75 98 Room Air 12/14/24 22:00 36.8 C 67 18 129/80 93 Room Air 12/14/24 20:55 Room Air PG Care Time/CCT Total # of Minutes Spent Total Time Spent with Patient: Total time spent is greater than 50% in coordination of care (as documented) at patient's floor/unit and/or counseling patient: Coding Level of Care Code 87045 SUB INP/OBS CARE 2/35MIN Diagnoses Stercoral colitis K52.89 Slow transit constipation K59.01 Fecal impaction K56.41 Neutrophilic leukocytosis D72.828
[2024-12-15 09:27] LABS: Alanine Aminotransferase 22.0 U/L (7-52); Albumin Globulin Ratio 1.1 (0.9-2); Albumin Level 3.2 gm/dl (3.4-5.0); Alkaline Phosphatase 70.0 U/L (34-104); Anion Gap 10.0 (3-11); Bilirubin,Total 0.6 mg/dl (0.2-1.0); Blood Urea Nitrogen 20.0 mg/dl (6-23); Calcium 8.4 mg/dl (8.6-10.3); Carbon Dioxide 23.0 mmol/L (21-32); Chloride 101.0 mmol/L (98-107); Creatinine Clr Calc Pharmacy 52.0 ml/min; Globulin 2.8 gm/dl (2.5-4.0); Glucose 107.0 mg/dl (70-99(Fasting)); Potassium 3.7 mmol/L (3.5-5.1); Sodium 134.0 mmol/L (136-145); Total Protein 6.0 gm/dl (6.0-8.3)
[2024-12-15 09:28] LABS: Hematocrit (blood only) 31.3 % (37.0-47.0); Hemoglobin 10.7 g/dl (12.0-16.0); Immature Granulocytes # (auto) 0.24 K/uL (0.01-0.20); Immature Granulocytes % (auto) 1.6 %; Mean Corpuscular Hemoglobin 31.6 pg (25.0-34.0); Mean Corpuscular Volume 92.3 fL (80.0-100.0); Platelet Count 220 K/uL (130-400); RDW Standard Deviation 45.7 fL (36.4-46.3); Red Blood Count 3.39 M/uL (4.20-5.40); White Blood Count 15.08 K/ul (4.8-10.8)
--- NOTE | 2024-12-15 10:39 | Surgery Progress Note ---
<Statement entered by Deborah Carbajal MD - 12/15/24 13:58> I saw and examined the patient and I agree with the assessment and plan of care Date of Service December 15, 2024 Assessment & Plan (1) Stercoral colitis: Plan: Pt here w/ constipation and abdominal pain w/ concern for stercoral colitis on CT scan Will repeat CBC and CMP today. Repeated CT scan without contrast yesterday was reviewed and showed decrease in amount of stool and colonic dilation, but increase in L colon wall thickening and pericolonic stranding concerning for stercoral colitis. no pneumatosis or free air seen Manjula is feeling better today, denies nausea. Reports having very loose BMs. Would like to increase diet today- will advance to full liquids and see how she does. Will continue to follow closely, but no plans for acute surgical intervention at this time. Patient seen and examined with Dr. Cabrajal. Admission and Anticipated Discharge Date Admission Date: December 12, 2024 Subjective Manjula is resting in chair at bedside, reports that she is feeling better today. She does report passing some flatus and moving bowels. Reports that BMs have been very loose. She does feel a bit more hungry today. States that today she does not feel nauseous when attempting to eat something. Physical Exam Physical Exam: awake/alert, no distress Gastrointestinal (Abdomen): Inspection/Auscultation: + abdomen distended (improving, but remains distended) Percussion/Palpation: + abdomen tender (tender throughout abdomen w/ some guarding) and abdomen soft Results & Data Vital Signs (Past 12 Hours) Vital Signs Temp Pulse Resp BP Pulse Ox O2 Del Method 12/15/24 07:51 37.1 C 69 17 127/75 98 Room Air PG Care Time/CCT Total # of Minutes Spent Total Time Spent with Patient: Total time spent is greater than 50% in coordination of care (as documented) at patient's floor/unit and/or counseling patient: Coding Level of Care Code 78388 SUB INP/OBS CARE 03/03MIN Diagnoses Stercoral colitis K52.89
[2024-12-15] MEDS: METOCLOPRAMIDE HCL 10 MG TABLET PO SCH (11:02)
[2024-12-15] MEDS: METOCLOPRAMIDE HCL INJ 5 MG/ML 2 ML VIAL IV PRN (17:18)
[2024-12-15] MEDS: HEPARIN 100 UNIT/ML 5ML FLUSH FLUSH PRN (17:20)
--- NOTE | 2024-12-16 07:27 | Hospitalist Progress Note ---
Date of Service December 16, 2024 Assessment & Plan (1) Stercoral colitis: (2) Slow transit constipation: (3) Fecal impaction: (4) Neutrophilic leukocytosis: Plan In summary this is a 74-year-old female who presents with stercoral colitis #Stercoral colitis Patient remains admitted for stercoral colitis, now having successfully passed stool; remains without infectious findings - Continue with regularly scheduled Miralax - Continue with bisacodyl 5 mg p.o. at bedtime - Continue Reglan 10 mg p.o. twice daily with additional 5 mg IV every 6 hours as needed for breakthrough nausea - Encourage regular ambulation to facilitate intestinal peristalsis Gastroenterology and General Surgery consulted; Gastroenterology considering colonoscopy The patient did present with tachycardia, significant leukocytosis; however with a normal procalcitonin there is no evidence for bacterial infection at this time, there is no indication for antibiotic therapy at this stage in her hospitalization; her leukocytosis continues to improve, suspect this will remain for many days as her inflammatory changes resolve Admission and Anticipated Discharge Date Admission Date: December 12, 2024 Subjective Ms. Marr is a 74-year-old female whose active medical conditions include chronic respiratory failure due to emphysema with hypoxia and previous lobectomy, chronic slow transit constipation, CKD stage IIIa, hyperlipidemia who presented to the [facility] on 12/12 due to progressive abdominal pain after being assessed at the same facility on 12/10 with similar complaints. She was subsequently admitted due to stercoral colitis with significant colonic distention. No acute overnight events Review of Systems Review of Systems: Review of constitutional, cardiovascular, pulmonary, gastrointestinal systems was unremarkable except for pertinent positive and negative findings discussed above Physical Exam Physical Exam: General: Elderly female in no acute distress Vital Signs: Reviewed HEENT: Moist mucous membranes Pulmonary: Symmetric chest wall excursion without restriction; diminished air movement in the bilateral posterior basilar segments Cardiovascular: Regular rate and rhythm without murmurs, rubs, or gallops; S1 and S2 normal; right radial pulse 2+ Gastrointestinal: Distended, soft, with voluntary guarding; tenderness continues to resolve on exam; without acute peritoneal findings; bowel sounds are of low- frequency and high pitch Results & Data Results & Data Vital Signs (Past 12 Hours) Vital Signs Temp Pulse Resp BP Pulse Ox O2 Del Method 12/16/24 07:16 37.3 C 71 16 151/78 H 94 Room Air 12/15/24 22:57 37.2 C 73 18 131/69 99 Room Air 12/15/24 20:10 Room Air PG Care Time/CCT Total # of Minutes Spent Total Time Spent with Patient: Total time spent is greater than 50% in coordination of care (as documented) at patient's floor/unit and/or counseling patient: Coding Level of Care Code 26150 SUB INP/OBS CARE 2/35MIN Diagnoses Stercoral colitis K52.89 Slow transit constipation K59.01 Fecal impaction K56.41 Neutrophilic leukocytosis D72.828
--- NOTE | 2024-12-16 10:39 | Surgery Progress Note ---
<Statement entered by Deborah Carbajal MD - 12/16/24 15:48> I independently saw the patient, and I agree with the assessment and plan of care. Date of Service December 16, 2024 Assessment & Plan (1) Stercoral colitis: Plan: Pt here w/ constipation and abdominal pain w/ concern for stercoral colitis on CT scan WBC trending down over wknd, 15 yesterday. vital signs are stable Pt is clinically feeling better each day. She has no nausea and is much less tender on exam She is passing gas/stool She is tolerating liquid diet. We are okay w/ advancing diet, but apparently GI is considering a colonoscopy. If okay w/ GI we are okay w/ more food, but they may want her to stay on liquids for any sort of bowel prep Pt requesting to stay until at least tomorrow, we are okay to continue to monitor her another day She will need to stay on a bowel regimen for home Will continue to follow closely, but no plans for acute surgical intervention at this time. Admission and Anticipated Discharge Date Admission Date: December 12, 2024 Subjective Patient feeling well. Improved over the last couple of days. Tolerating diet, no n/v. Pain better. Having + bowel movements and passing gas. Physical Exam Physical Exam: awake/alert, no distress Gastrointestinal (Abdomen): Inspection/Auscultation: + abdomen distended (mild) Percussion/Palpation: + abdomen tender (much improved abdominal discomfort to palpation) and abdomen soft; no guarding Results & Data Vital Signs (Past 12 Hours) Vital Signs Temp Pulse Resp BP Pulse Ox O2 Del Method 12/16/24 07:16 99.1 F 71 16 151/78 H 94 Room Air 12/15/24 22:57 99.0 F 73 18 131/69 99 Room Air PG Care Time/CCT Total # of Minutes Spent Total Time Spent with Patient: Total time spent is greater than 50% in coordination of care (as documented) at patient's floor/unit and/or counseling patient: Coding Level of Care Code 90725 SUB INP/OBS CARE 03/03MIN Diagnoses Stercoral colitis K52.89
[2024-12-16] MEDS: ACETAMINOPHEN 500 MG TAB PO PRN (21:04)
[2024-12-17 07:32] VITALS: RESP 16; TEMP 98.4; O2SAT 94
--- NOTE | 2024-12-17 08:07 | Hospitalist Progress Note ---
Date of Service December 17, 2024 Assessment & Plan (1) Stercoral colitis: (2) Slow transit constipation: (3) Fecal impaction: (4) Neutrophilic leukocytosis: Plan In summary this is a 74-year-old female who presents with stercoral colitis #Stercoral colitis Patient remains admitted for stercoral colitis, now having successfully passed stool; remains without infectious findings - Continue with regularly scheduled Miralax - Continue with bisacodyl 5 mg p.o. at bedtime - Continue Reglan 10 mg p.o. twice daily with additional 5 mg IV every 6 hours as needed for breakthrough nausea - Pending CT abdomen/pelvis with oral contrast - Encourage regular ambulation to facilitate intestinal peristalsis Gastroenterology and General Surgery consulted; Gastroenterology considering colonoscopy The patient did present with tachycardia, significant leukocytosis; however with a normal procalcitonin there is no evidence for bacterial infection at this time, there is no indication for antibiotic therapy at this stage in her hospitalization; her leukocytosis continues to improve, suspect this will remain for many days as her inflammatory changes resolve Admission and Anticipated Discharge Date Admission Date: December 12, 2024 Subjective Ms. Marr is a 74-year-old female whose active medical conditions include chronic respiratory failure due to emphysema with hypoxia and previous lobectomy, chronic slow transit constipation, CKD stage IIIa, hyperlipidemia who presented to the [facility] on 12/12 due to progressive abdominal pain after being assessed at the same facility on 12/10 with similar complaints. She was subsequently admitted due to stercoral colitis with significant colonic distention. No acute overnight events; some abdominal pain, but resolved Review of Systems Review of Systems: Review of constitutional, cardiovascular, pulmonary, gastrointestinal systems was unremarkable except for pertinent positive and negative findings discussed above Physical Exam Physical Exam: General: Elderly female in no acute distress Vital Signs: Reviewed HEENT: Moist mucous membranes Pulmonary: Symmetric chest wall excursion without restriction; diminished air movement in the bilateral posterior basilar segments Cardiovascular: Regular rate and rhythm without murmurs, rubs, or gallops; S1 and S2 normal; right radial pulse 2+ Gastrointestinal: Distended, soft, with voluntary guarding; tenderness continues to resolve on exam; without acute peritoneal findings; bowel sounds are of low- frequency and high pitch Results & Data Results & Data Vital Signs (Past 12 Hours) Vital Signs Temp Pulse Resp BP Pulse Ox O2 Del Method 12/17/24 07:29 36.9 C 83 16 154/81 H 94 Room Air 12/16/24 22:20 36.4 C L 78 18 148/88 H 96 Room Air PG Care Time/CCT Total # of Minutes Spent Total Time Spent with Patient: Total time spent is greater than 50% in coordination of care (as documented) at patient's floor/unit and/or counseling patient: Coding Level of Care Code 00143 SUB INP/OBS CARE 2/35MIN Diagnoses Stercoral colitis K52.89 Slow transit constipation K59.01 Fecal impaction K56.41 Neutrophilic leukocytosis D72.828
--- NOTE | 2024-12-17 12:37 | Surgery Progress Note ---
Date of Service December 17, 2024 Assessment & Plan (1) Stercoral colitis: Plan: Pt here w/ constipation and abdominal pain w/ concern for stercoral colitis on CT scan -VSS and patient is afebrile -Patient denies any nausea or vomiting. Less tender and less distended on exam this morning. She is tolerating a diet -She is passing gas and has had multiple bowel movements -Appreciate GI input recommendations, considering a colonoscopy. - Continue bowel regimen, and discussed with the patient that she will continue a bowel regimen at time of discharge - No plans for surgical intervention at this time, patient clinically improving, at this time surgery will sign off. Please recall with any questions or concerns, [facility] on-call this week Admission and Anticipated Discharge Date Admission Date: December 12, 2024 Subjective Patient seen and evaluated this morning, states that she is feeling well. Tolerating diet without any issues of nausea or vomiting. Patient states that she has had multiple liquid BMs this morning Physical Exam Constitutional: WD/WN, vitals as above Respiratory: normal respiratory effort; no respiratory distress and no labored breathing Cardiovascular: Rate/Rhythm: regular rate Gastrointestinal (Abdomen): Soft, nondistended, nontender No rebound, guarding or peritonitis Results & Data Vital Signs (Past 12 Hours) Vital Signs Temp Pulse Resp BP Pulse Ox O2 Del Method 12/17/24 09:00 Room Air 12/17/24 07:29 36.9 C 83 16 154/81 H 94 Room Air PG Care Time/CCT Total # of Minutes Spent Total Time Spent with Patient: Total time spent is greater than 50% in coordination of care (as documented) at patient's floor/unit and/or counseling patient: Coding [place] [address] SUB INP/OBS CARE 03/03MIN Patient Type Established History Problem Focused Exam Problem Focused Medical Decision Making Straight Forward Diagnoses Stercoral colitis K52.89
--- NOTE | 2024-12-17 14:32 | CT Scan Report ---
CT abd pelvis oral con only CLINICAL HISTORY: Reassess stool burden and obstruction. COMPARISON STUDY: CT of the abdomen and pelvis December 14, 2024. TECHNIQUE: Axial images of the abdomen and pelvis were obtained without intravenous contrast. Oral co ntrast was administered. A dose lowering technique was utilized adhering to the principles of ALARA. FINDINGS: No pneumatosis, free air or portal venous gas is present. Evaluation of the abdomen and pel vis is mildly compromised given lack of IV contrast. Unenhanced images of the liver, spleen, adrenal glands, kidneys and pancreas are unremarkable. Is no biliary or pancreatic ductal dilatation. There i s no hydronephrosis. No peripancreatic or pericholecystic infiltration is present. There is no eviden ce for a bowel obstruction. There is colonic diverticulosis without evidence for acute diverticulitis . A moderate amount of poorly formed stool within the colon has slightly decreased in amount since CT of December 14, 2024. There is persistent left colon wall thickening with pericolonic stranding and a small amount of ascites. No fluid collection is identified. The amount of ascites within the pelvis and lower abdomen has decreased since prior CT. IMPRESSION: 1. Continued mild decrease in amount of stool within the colon since CT of December 14, 2024. Slight d ecrease in colonic dilatation. 2. Persistent left colon wall thickening with pericolonic stranding. This favors stercoral colitis gi zahra the amount of stool on earlier CT. Small amount of ascites, decreased in amount since prior exam. No pneumatosis, free air or portal venous gas. ACT 112: Negative or not required by law. Electronically signed by: Ashu Amaya M.D. 12/17/2024 2:31 PM
[2024-12-17 15:08] VITALS: BP 160/84; PULSE 75
--- NOTE | 2024-12-18 16:22 | Discharge Summary ---
Discharge Summary Date of Service December 17, 2024 Principal Dx & Hospital Course #1 = Principal Diagnosis (1) Stercoral colitis: (2) Slow transit constipation: (3) Fecal impaction: (4) Neutrophilic leukocytosis: Plan In summary this is a 74-year-old female who presents with stercoral colitis #Stercoral colitis Patient remains admitted for stercoral colitis, now having successfully passed stool; remains without infectious findings - Continue with regularly scheduled Miralax - Continue with bisacodyl 5 mg p.o. at bedtime - Continue Reglan 10 mg p.o. every 8 hours as needed - Encourage regular ambulation to facilitate intestinal peristalsis Admission HPI Per Admitting Provider Manjula Marr is a 74yo female with history of CKD, HTN, chronic hypoxic respiratory failure on 2L supplemental O2qHS presenting with abdominal pain and obstipation. Patient reports longstanding history of bowel issues and chronic constipation since childhood. Patient reports may sometimes go a week or more between bowel movements. She first had some lower abdominal cramping and constipation which started 1 month ago and lasted for a day then resolved on its own. She was visiting her daughter last week and felt ill for a day with lower abdominal cramping and constipation which resolved after one day. She returned home on December 05 and felt ok for the next two days. Starting on 12/08/24 she began having severe lower abdominal discomfort, cramping, nausea, poor appetite and decreased oral intake. Patient was seen in the ER on 12/10/24 with these complaints. She had a CT of the abdomen with PO contrast which revealed an area of desiccated stool suggestive of chronic constipation with mild wall thickening of the decompressed rectum and sigmoid colon. She has been taking Senokot for the last several days - reports taking two tablets of Senna BID as well as Miralax hourly (reports taking approximately 11 doses of Miralax). No bowel movement as of yet. She reports last evening being very restless throughout the night with significant nausea and abdominal cramping. Also with abdominal distention. She is passing a small amount of flatus. Last bowel movement was possibly one week ago on 12/06, small amount. No additional complaints at this time ER Course: Soap suds enema Zofran 4mg IV x 2 doses Plasmalyte x 1.5L Fentanyl 50mcg x 2 Tylenol 1gm Zosyn 4.5hm Morphine 2mg Discharge Exam General: Elderly female in no acute distress Vital Signs: Reviewed HEENT: Moist mucous membranes Pulmonary: Symmetric chest wall excursion without restriction; diminished air movement in the bilateral posterior basilar segments Cardiovascular: Regular rate and rhythm without murmurs, rubs, or gallops; S1 and S2 normal; right radial pulse 2+ Gastrointestinal: Distended, soft, with voluntary guarding; tenderness continues to resolve on exam; without acute peritoneal findings; bowel sounds are of low- frequency and normal pitch Discharge Plan Discharge Items Patient Disposition: Home - Self-Care Reason For Visit: SOB Discharge Diagnosis: Stercoral Colitis Condition on Discharge: Good Activity: Per Instructions section Non-emergency contact: Primary Care Provider Call non-emergency contact if: you have any medication questions and your symptoms worsen Follow-up/Referrals: Danna Lilly, [Primary Care Provider] - (You have a hospital follow-up visit scheduled on: 12/25/2024 @ 11:[address] Lilly. Location: [address] [place] [address] , [place] [address] ([place]) ) Diet: Regular Fluids: 2000ml (8 cups) Addtl Attending Provider Instructions: You were admitted to the [facility] for stercoral colitis requiring aggressive laxation therapy. For continued management in the outpatient setting, recommend you continue using MiraLAX 1 capful 3 times daily for 5 days, then 1 capful twice daily for 5 days, then 1 capful daily thereafter adjusting the amount you take by increasing or decreasing one half capful every 3 to 4 days to maintain 2-3 easily pass bowel movements daily. Please also continue taking bisacodyl 5 mg p.o. at bedtime daily to assist with colonic activity given the degree of dilation present on your imaging, this will take some time to resolve. You have no specific dietary restrictions or recommendations at this time. Pending Studies at Discharge: No Stand-Alone Forms: My [facility] Medications and DC Order Prescriptions: New bisacodyl [Gentle Laxative (bisacodyl)] 5 mg Tablet,Delayed Release (Dr/Ec) 5 mg PO HS 30 Days Qty: 30 0RF metoclopramide HCl 10 mg Tablet 10 mg PO Q8H PRN (Reason: Nausea) 10 Days Qty: 30 0RF Continued (DME) Oxygen Home Liters Per Minute 1 ea .Route .continuous Qty: 1 0RF Rx Instructions: 2 liters at rest/sleep; 5 liters with activityPortable oxygen concentrator and test for conserving device [id number]-99 (DME) Portable Oxygen Misc See Rx Instructions .Route Qty: 1 0RF Rx Instructions: Portable oxygen concentrator at 2 L/min via nasal cannula. Length of need: 99 years. Airsupra 90-80 mcg/actuation HFA aerosol inhaler 2 inh inhalation BID PRN (Reason: shortness of breath) Qty: 10.7 3RF Stiolto Respimat 2.5-2.5 mcg/actuation mist 2 puff inhalation DAILY Qty: 4 11RF rosuvastatin [Crestor] 5 mg tablet 10 mg PO 3XWK Rx Instructions: TAKE THIS MED EVERY TUESDAY/TUESDAY/TUESDAY. olmesartan 20 mg tablet 20 mg PO DAILY pantoprazole 40 mg tablet,delayed release (DR/EC) 40 mg PO DAILY albuterol sulfate 90 mcg/actuation HFA aerosol inhaler 2 inh inhalation QID PRN (Reason: shortness of breath or wheezing) Qty: 8.5 3RF (DME) Aerochamber MV Spacer See Rx Instructions .ROUTE .MEDSUPPLY Qty: 1 0RF Rx Instructions: As directed cetirizine [Zyrtec] 10 mg Tablet 10 mg PO HS PRN (Reason: Allergy Symptoms) cholecalciferol (vitamin D3) [Vitamin D3] 125 mcg (5,000 unit) Tablet 125 mcg PO 4XWK Rx Instructions: TAKE THIS MED EVERY TUESDAY/TUESDAY/TUESDAY/TUESDAY. cyanocobalamin (vitamin B-12) [Vitamin B-12] 2,500 mcg Tablet, Sublingual 2,500 mcg SUBLINGUAL DAILY Discontinued sennosides-docusate sodium [Senokot-S] 8.6-50 mg tablet 1 - 2 tab-cap PO BID PRN (Reason: constipation) Qty: 60 2RF Discharge Orders: Discharge Order (Routine); Ordered 12/17/24 Ordered By: Johan Colvin Admission Data Admit Date/Time: 12/12/24 19:55 Attending Provider: Johan Colvin Admit Provider: Erin Mclean Primary Care Provider: Danna Lilly Other Providers: Marcos Cabezas Jr; Erin Mclean; Priyanka Anderson; Francisco J Beverly; Akira Mosley; Gael Chong; Kam Hogue; Deanna Moore; Jamal Guy; Balbir England; Keily Pacheco; Wendy Cook; Theo Bermudez; Gael Engle; Deborah Carbajal Other Interventions: Discharge Summary Assessment (RN) Last Done: 12/17/24 16:50 Hospital Stay Data Consultations 12/12/24 19:17 ED Decision to Admit Stat 12/12/24 19:55 Consult Gastroenterology Routine 12/13/24 10:06 Consult General Surgery Routine Diagnostic Imagining Performed 12/12/24 13:56 CT abd pelvis IV con only Stat 12/14/24 08:17 CT abd pelvis wo con Routine 12/17/24 11:39 CT Abd and Pelvis [CT abd pelvis oral con only] Routine Pending Results Patient Have Any Pending Studies at Discharge: No Discharge Instructions Given to Patient (Per Discharging Provider) You were admitted to the [facility] for stercoral colitis requiring aggressive laxation therapy. For continued management in the outpatient setting, recommend you continue using MiraLAX 1 capful 3 times daily for 5 days, then 1 capful twice daily for 5 days, then 1 capful daily thereafter adjusting the amount you take by increasing or decreasing one half capful every 3 to 4 days to maintain 2-3 easily pass bowel movements daily. Please also continue taking bisacodyl 5 mg p.o. at bedtime daily to assist with colonic activity given the degree of dilation present on your imaging, this will take some time to resolve. You have no specific dietary restrictions or recommendations at this time. Total Time Total Time Spent Total Time Spent (In Minutes): I personally spent 60 minutes in the coordination of the patient's discharge including bedside counselling, physical exam, medication reconciliation Coding Level of Care Code 42577 INP/OBS DISCH >30 MIN Diagnoses Stercoral colitis K52.89 Slow transit constipation K59.01 Fecal impaction K56.41 Neutrophilic leukocytosis D72.828
== END 2024-12-17 17:55 | disposition home or self-care (01) | DRG 392 ==
LOC: ED 13:30 → SUATTDRO 19:55 → EDINP 19:55 → 3W 22:07
DX: Z99.81 Dependence on supplemental oxygen; K56.600 Partial intestinal obstruction, unspecified as to cause; E87.20 Acidosis, unspecified; D72.828 Other elevated white blood cell count; N18.31 Chronic kidney disease, stage 3a; I12.9 Hypertensive chronic kidney disease with stage 1 through stage 4 chronic kidney disease, or unspecified chronic kidney disease; K52.89 Other specified noninfective gastroenteritis and colitis; E78.5 Hyperlipidemia, unspecified; J96.11 Chronic respiratory failure with hypoxia; K59.09 Other constipation; J43.9 Emphysema, unspecified; Z87.891 Personal history of nicotine dependence; K56.41 Fecal impaction; K21.9 Gastro-esophageal reflux disease without esophagitis; Z79.899 Other long term (current) drug therapy; D64.9 Anemia, unspecified